=== PATIENT | male | born 1980 | race Caucasian/White ===

== ENCOUNTER 2016-11-21 | Emergency (ER) | payer OTHER ==
[~2016-11-21] VITALS: Ht 180.3 cm; Wt 72.0 kg
[2016-11-21 00:07] VITALS: TEMP 36.7; Ht 180.3 cm; Wt 72.0 kg
[2016-11-21] MEDS ORDERED: RISP0.5T10 PO (00:29)
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
[2016-11-21 00:52] LABS: HEMATOCRIT 44.2 % (42-52); MEAN CELL VOLUME 88.8 fL (80-100); MEAN CORPUSCULAR HEMOGLOBIN 31.7 pg (25-34); MEAN CORPUSCULAR HGB CONC 35.7 g/dl (32-36); MEAN PLATELET VOLUME 10.2 fL (7.4-10.4); PLATELET COUNT 322 K/uL (130-400); RED BLOOD COUNT 4.98 M/uL (4.7-6.1); WHITE BLOOD COUNT 11.23 K/uL (4.8-10.8)
[2016-11-21 01:00] LABS: ALT/SGPT 93 U/L (12-78); AST/SGOT 37 U/L (15-37); BLOOD UREA NITROGEN 14 mg/dl (7-18); BUN/CREATININE RATIO 12.6 (10-20); CALCIUM 8.6 mg/dl (8.5-10.1); CARBON DIOXIDE 27 mmol/L (21-32); CHLORIDE 102 mmol/L (98-107); GLUCOSE 107 mg/dl (70-99); POTASSIUM 3.5 mmol/L (3.5-5.1); SODIUM 141 mmol/L (136-145)
[2016-11-21 01:00] LABS: URINE APPEARANCE CLEAR (CLEAR); URINE BILIRUBIN NEG (NEG); URINE COLOR YELLOW; URINE NITRITE NEG (NEG); URINE PH 5.5 (4.5-7.5); URINE SPECIFIC GRAVITY 1.012 (1.000-1.030); UROBILINOGEN NEG (NEG)
[2016-11-21 01:01] LABS: MANUAL MICROSCOPIC REQUIRED? NO; REVIEW REQ? NO
[2016-11-21 01:11] LABS: ALKALINE PHOSPHATASE 125 U/L (45-117)
[2016-11-21 01:20] LABS: BENZODIAZEPINE, URINE NEG (NEG); COCAINE,URINE NEG (NEG); PHENCYCLIDINE, URINE NEG (NEG)
[2016-11-21 01:21] LABS: ACETAMINOPHEN < 2 ug/ml (10-30)
[2016-11-21] MEDS ORDERED: RISPERIDONE 0.5 MG TAB PO STA (10:30)
[2016-11-21] MEDS ORDERED: NICOTINE 14 MG/24 HR TDSY TD STA (13:03)
--- NOTE | 2016-11-21 13:36 | EMERGENCY ROOM VISIT NOTE ---
ED Visit Note First contact with patient: 07:34 This patient was signed out to me pending psychiatric placement. I did provide his morning medications. He was accepted by [facility] and will be transported securely at 5 PM.
[2016-11-21 19:10] VITALS: BP 126/65; PULSE 96; O2SAT 96
== END 2016-11-21 19:07 ==
LOC: EDBD → C.EDA 00:02
DX: F23 Brief psychotic disorder (principal); R44.0 Auditory hallucinations; J45.909 Unspecified asthma, uncomplicated; F17.210 Nicotine dependence, cigarettes, uncomplicated; Z79.899 Other long term (current) drug therapy

== ENCOUNTER 2017-09-03 23:44 | Emergency (ER) | payer OTHER ==
[~2017-09-03] VITALS: Ht 182.9 cm; Wt 79.8 kg
[~2017-09-03 23:44] MED LIST: RISP0.5T10 PO
[2017-09-03 23:52] VITALS: TEMP 37; Ht 182.9 cm; Wt 79.8 kg
[2017-09-03] MEDS ORDERED: MoRPHine SULFATE 4 MG/ML 1 ML CARP\\VIAL IV STA (23:53)
[2017-09-03] MEDS ORDERED: ONDANSETRON INJ 2 MG/ML 2 ML VIAL IV STA (23:53)
[2017-09-04] MEDS ORDERED: OPTIRAY 320 IV PRN (00:15)
[2017-09-04 00:25] LABS: HEMATOCRIT 42.2 % (42-52); MEAN CELL VOLUME 85.6 fL (80-100); MEAN CORPUSCULAR HEMOGLOBIN 29.4 pg (25-34); MEAN CORPUSCULAR HGB CONC 34.4 g/dl (32-36); MEAN PLATELET VOLUME 9.8 fL (7.4-10.4); PLATELET COUNT 247 K/uL (130-400); RED BLOOD COUNT 4.93 M/uL (4.7-6.1); WHITE BLOOD COUNT 7.27 K/uL (4.8-10.8)
[2017-09-04 00:34] LABS: BUN/CREATININE RATIO 16.6 (10-20); CREATININE 1.31 mg/dl (0.60-1.40); POTASSIUM 3.2 mmol/L (3.5-5.1)
[2017-09-04] MEDS ORDERED: CEFAZOLIN IV 1,000 MG in DEXTROSE 5% 50ML 50 ML IV STA (00:42)
[2017-09-04] MEDS ORDERED: CEFAZOLIN 1000MG IV PUSH 5 ML IV STA (00:46)
[2017-09-04] MEDS ORDERED: XYLOCAINE 1%/SOD BICARB 20 ML VIAL INFIL ONE (01:00)
[2017-09-04] MEDS ORDERED: LIDO/EPINEPHRINE/SOD BICARB 20 ML VIAL INFIL ONE (01:31)
--- NOTE | 2017-09-04 02:00 | EMERGENCY ROOM VISIT NOTE ---
ED Visit Note I was asked the laceration repairs of this patient. Location: left eyelid Total length: 1cm Complexity: simple Verbal consent was obtained after the risks and benefits were explained, including but not limited to bleeding, scarring, infection, pain, and bone/joint /nerve damage. At this time, the risks of the procedure are less than the risks of NOT performing the procedure. A time out was taken and the correct patient and site identified. The skin was prepped with betadine. The target area was anesthetized with 1 ml of 1% lidocaine without epinephrine. Copious irrigation was performed using NSS. The skin was re-prepped with betadine and a sterile field set. The wound was explored for foreign bodies and none found. Examination revealed no injury to deep structures such as tendons, bone, or significant blood vessels. Debridement was not performed. The wound edges were approximated using 3, 6-0 simple interrupted nylon sutures. Hemostasis and excellent approximation was achieved. Antibacterial ointment and a sterile dressing applied. Detailed wound care instructions and signs and symptoms of infection reviewed with the pt. No complications and the patient tolerated the procedure well. Location: left eyelid Total length: 1.5cm Complexity: simple Verbal consent was obtained after the risks and benefits were explained, including but not limited to bleeding, scarring, infection, pain, and bone/joint /nerve damage. At this time, the risks of the procedure are less than the risks of NOT performing the procedure. A time out was taken and the correct patient and site identified. The skin was prepped with betadine. The target area was anesthetized with 2 ml of 1% lidocaine without epinephrine. Copious irrigation was performed using NSS. The skin was re-prepped with betadine and a sterile field set. The wound was explored for foreign bodies and none found. Examination revealed no injury to deep structures such as tendons, bone, or significant blood vessels. Debridement was not performed. The wound edges were approximated using 3, 6-0 simple interrupted nylon sutures. Hemostasis and excellent approximation was achieved. Antibacterial ointment and a sterile dressing applied. Detailed wound care instructions and signs and symptoms of infection reviewed with the pt. No complications and the patient tolerated the procedure well. Location: nasal bridge to left eye Total length: 2cm Complexity: complex Verbal consent was obtained after the risks and benefits were explained, including but not limited to bleeding, scarring, infection, pain, and bone/joint /nerve damage. At this time, the risks of the procedure are less than the risks of NOT performing the procedure. A time out was taken and the correct patient and site identified. The skin was prepped with betadine. The target area was anesthetized with 2 ml of 1% lidocaine with epinephrine. Upon anesthetizing the area, the patient developed a epistaxis. Pressure was applied and the epistaxis did resolve. Copious irrigation was performed using NSS. The skin was re-prepped with betadine and a sterile field set. The wound was explored for foreign bodies and none found. Examination revealed visualization of the nasal septum. Debridement was not performed. The wound edges were approximated using 6, 6-0 simple interrupted nylon sutures. Hemostasis and excellent approximation was achieved. Antibacterial ointment and a sterile dressing applied. Detailed wound care instructions and signs and symptoms of infection reviewed with the pt. No complications and the patient tolerated the procedure well. Problem List Medical Problems: (1) Asthma Status: Chronic (2) CHI (closed head injury) Status: Resolved (3) Dehydration Status: Resolved (4) Finger infection Status: Resolved (5) Left shoulder pain Status: Resolved (6) Multiple abrasions Status: Resolved (7) Separation of left acromioclavicular joint, type 1 Status: Resolved Current/Historical Medications No Active Prescriptions or Reported Meds Allergies Coded Allergies: Aspirin (Verified Allergy, Unknown, unknown, 09/04/17) BEE STING (Unverified Allergy, Unknown, anaphylaxis, 09/04/17) Cat Dander (Verified Allergy, Unknown, ., 09/04/17) Vital Signs Date Time Temp Pulse Resp B/P (MAP) Pulse Ox O2 Delivery O2 Flow Rate FiO2 09/04/17 01:03 87 18 124/82 92 Room Air 09/04/17 00:20 93 09/03/17 23:52 37.0 98 18 138/99 95 Room Air Laboratory Results 09/03/17 23:55 09/03/17 23:55 Test 09/03/17 23:55 Red Blood Count 4.93 M/uL (4.7-6.1) Mean Corpuscular Volume 85.6 fL (80-100) Mean Corpuscular Hemoglobin 29.4 pg (25-34) Mean Corpuscular Hemoglobin Concent 34.4 g/dl (32-36) RDW Standard Deviation 39.7 fL (36.4-46.3) RDW Coefficient of Variation 12.7 % (11.5-14.5) Mean Platelet Volume 9.8 fL (7.4-10.4) Anion Gap 8.0 mmol/L (3-11) Est Creatinine Clear Calc Drug Dose 84.8 ml/min Estimated GFR () 80.0 Estimated GFR (Non- 69.1 BUN/Creatinine Ratio 16.6 (10-20) Calcium Level 9.0 mg/dl (8.5-10.1) Medications Administered Medications (Trade) Dose Ordered Sig/Raul Route Start Time Stop Time Status Last Admin Dose Admin Morphine Sulfate (MoRPHine SULFATE INJ) 4 mg NOW STAT IV 09/03/17 23:53 09/03/17 23:54 DC 09/04/17 00:00 4 MG Ondansetron HCl (Zofran Inj) 4 mg NOW STAT IV 09/03/17 23:53 09/03/17 23:54 DC 09/03/17 23:59 4 MG Cefazolin Sodium 5 ml @ 2.5 mls/min ONE STAT IV 09/04/17 00:46 09/04/17 00:47 DC 09/04/17 01:05 2.5 MLS/MIN Departure Information Prescriptions No Active Prescriptions or Reported Meds Referrals No Doctor, Assigned (PCP) Patient Instructions [facility]
[2017-09-04] MEDS ORDERED: MoRPHine SULFATE 4 MG/ML 1 ML CARP\\VIAL IV STA (02:14)
[2017-09-04 02:24] VITALS: BP 129/85; PULSE 85; O2SAT 94
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
== END 2017-09-04 03:00 | disposition short-term general hospital (02) ==
LOC: EDBD 23:44 → C.EDA 23:47
DX: S01.112A Laceration without foreign body of left eyelid and periocular area, initial encounter (principal); S01.21XA Laceration without foreign body of nose, initial encounter; S02.2XXA Fracture of nasal bones, initial encounter for closed fracture; X99.1XXA Assault by knife, initial encounter; Y92.009 Unspecified place in unspecified non-institutional (private) residence as the place of occurrence of the external cause; F17.200 Nicotine dependence, unspecified, uncomplicated; F12.90 Cannabis use, unspecified, uncomplicated

== ENCOUNTER → 2017-10-12 | Day surgery (SDC) | payer OTHER ==
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
[~2017-10-12] VITALS: Ht 182.9 cm; Wt 79.0 kg
[~2017-10-12] MED LIST changes: +ATROPINE SULFATE 0.1 MG/ML 5ML SYR IV PRN; +BACITRACIN OINT 15 GM TUBE ONE; +CEFAZOLIN 1000MG IV PUSH 5 ML IV SCH; +DEXAMETHASONE SOD INJ 4 MG/ML VIAL ONE; +EpINEphrine INJ 1MG/ML AMP 1 MG/ML AMP ONE; +FENTANYL CITRATE INJ 50 MCG/1 ML 2 ML VIAL IV PRN; +FENTANYL CITRATE INJ 50 MCG/1 ML 2 ML VIAL ONE; +GELATIN SPONGE 12-7MM ONE; +HYDR-5688 PO; +HYDROCODONE/ACETAMOPHEN 5/325MG TAB PO PRN; +LABETALOL HCL IV 5 MG/ML 20ML IV PRN; +LACTATED RINGER'S 1000ML 1,000 ML IV SCH; +LIDO 2%/EPINEPHRINE 1:100000 20 ML VIAL INFIL ONE; +LIDOCAINE 4% MPF SOAK 5 ML = 1 DOSE TOP ONE; +LIDOCAINE HCL 2% 2 ML VIAL (20MG/ML) ONE; +MIDAZOLAM HCL 1 MG/ML 2ML VIAL ONE; +ONDANSETRON INJ 2 MG/ML 2 ML VIAL IV PRN; +ONDANSETRON INJ 2 MG/ML 2 ML VIAL ONE; +PROPOFOL IV EMULSION 10 MG/ML 20 ML VIAL IV ONE; -RISP0.5T10 PO; +SODIUM CHLORIDE 0.9% 1000ML 1,000 ML IV SCH
[2017-10-12 11:46] VITALS: Ht 182.9 cm; Wt 79.0 kg
--- NOTE | 2017-10-12 11:55 | History & Physical Bridge Note ---
H&P Re-Evaluation Bridge Note: I have examined the patient, reviewed the History & Physical and in the interval since the performance of the History & Physical I have noted the following changes of clinical significance: No changes noted
--- NOTE | 2017-10-12 13:14 | Discharge Instructions-SurgCtr ---
Discharge Instructions Date of Service Oct 12, 2017. Visit Reason for Visit: Nasal & Septal Fractures Discharge Discharge Diagnosis / Problem: same Discharge Goals Goal(s): Improve function Activity Recommendations Activity Limitations: per Instructions/Follow-up section Anesthesia . Post Anesthesia Instructions: If you have had General Anesthesia or IV Sedation: * Do not drive today. * Resume driving when surgeon permits. * Do not make important decisions or sign legal documents today. * Call surgeon for: 1. Temperature elevations greater than 101 degrees F. 2. Uncontrollable pain. 3. Excessive bleeding. 4. Persistent nausea and vomiting. 5. Medication intolerance (nausea, vomiting or rash). * For nausea and vomiting use only clear liquids such as: tea, soda, bouillon until nausea subsides, then gradually increase diet as tolerated. * If you have any concerns or questions, call your surgeon's office. If physician is unavailable and it is an emergency, call 911 or go to the nearest emergency room. . Instructions / Follow-Up Instructions / Follow-Up ACTIVITY RECOMMENDATIONS: * Being up and around is good, but no strenuous activity, heavy lifting or physical exertion for one week. * Keep your head elevated 30 degrees when lying down or sleeping. * Do not blow your nose for 48 hours, sniff back instead. * Avoid hot showers. OVER THE COUNTER MEDICATIONS: * You may use Tylenol * Avoid aspirin or aspirin containing products, e.g. as they may increase bleeding. SPECIAL CARE INSTRUCTIONS: * Expect to have bloody drainage from your nose and/or down your throat for one to three days. Change drip pad as needed. * Begin irrigating your nose with saline solution today, at least six to ten times per day and sniff back to help remove old clots or crust. * You may experience nasal and facial congestion, pain and pressure, this is normal. * Please call with any significant and/or progressive pain, redness, swelling around the eyes, visual changes, fever of 101.5 degrees F, active bleeding or any problems or concerns. * If active bleeding occurs, spray the nose three times at one minute intervals with Afrin spray and call or cell phone: . If unable to reach the doctor, go to the nearest Emergency Department. Special Diet: * Avoid extremely hot fluids. FOLLOW UP VISIT: Follow-up Visit with Dr. Cassidy If not already scheduled, please call to schedule. Diet Recommendations Home Diet: no limitations Pending Studies Studies pending at discharge: no Medical Emergencies . Who to Call and When: Medical Emergencies: If at any time you feel your situation is an emergency, please call 911 immediately. . Non-Emergent Contact Non-Emergency issues call your: Primary Care Provider . . "Provider Documentation" section prepared by Lindsay Cassidy. . [place] Drug Monitoring Program Search Results: no issues identified
--- NOTE | 2017-10-12 15:19 | Anesthesia Progress Nt - [facility] ---
Anesthesia Post Op Note Date & Time Oct 12, 2017 at 15:19 Vital Signs Pain Intensity: 3 Vital Signs Past 12 Hours Date Time Temp Pulse Resp B/P (MAP) Pulse Ox O2 Delivery O2 Flow Rate FiO2 10/12/17 15:07 36.7 69 16 121/81 98 Room Air 10/12/17 15:02 74 13 99 10/12/17 15:02 73 13 10/12/17 15:00 126/92 10/12/17 14:57 70 12 10/12/17 14:57 70 12 93 10/12/17 14:55 141/106 10/12/17 14:52 75 17 94 10/12/17 14:52 75 17 10/12/17 14:51 120/84 10/12/17 14:47 74 10 10/12/17 14:47 74 10 93 10/12/17 14:45 139/98 10/12/17 14:42 82 13 10/12/17 14:42 84 13 140/87 92 10/12/17 14:41 83 12 10/12/17 14:41 80 12 93 10/12/17 14:36 80 16 141/103 100 10/12/17 14:36 85 16 10/12/17 14:31 83 16 154/90 100 10/12/17 14:31 84 16 10/12/17 14:26 88 10 10/12/17 14:26 90 10 98 10/12/17 14:25 37.0 88 12 118/92 98 Humidified Oxygen Mask 10/12/17 11:43 36.5 62 16 123/79 (94) 97 Room Air Notes Mental Status: alert / awake / arousable, participated in evaluation Pt Amnestic to Procedure: Yes Nausea / Vomiting: adequately controlled Pain: adequately controlled Airway Patency, RR, SpO2: stable & adequate BP & HR: stable & adequate Hydration State: stable & adequate Anesthetic Complications: no major complications apparent
[2017-10-12 15:29] VITALS: BP 132/87; PULSE 68; TEMP 37; O2SAT 98
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
== END | disposition home or self-care (01) ==
LOC: X.SURG 11:31
PROVIDERS: ATTEND Otolaryngology
DX: S02.2XXA Fracture of nasal bones, initial encounter for closed fracture (principal); X99.1XXA Assault by knife, initial encounter

== ENCOUNTER 2022-12-19 06:48 | Inpatient (IN) ==
[2022-12-19 07:37] LABS: Basophils # (auto) 0.06 K/uL (0-0.2); Basophils % (auto) 0.5 %; Eosinophils # (auto) 0.18 K/uL (0-0.50); Eosinophils % (auto) 1.6 %; Hematocrit (blood only) 43.9 % (42.0-52.0); Hemoglobin 15.4 g/dl (14.0-18.0); Immature Granulocytes # (auto) 0.07 K/uL (0.01-0.20); Immature Granulocytes % (auto) 0.6 %; Lymphocytes # (auto) 1.75 K/uL (1.2-3.4); Lymphocytes % (auto) 15.3 %; Mean Corpuscular Hgb Conc 35.1 g/dL (32.0-36.0); Mean Corpuscular Volume 85.4 fL (80.0-100.0); Mean Platelet Volume 10.3 fL (9.4-12.4); Monocytes # (auto) 0.64 K/uL (0.11-0.59); Monocytes % (auto) 5.6 %; Neutrophils # (auto) 8.74 K/uL (1.40-6.50); Neutrophils % (auto) 76.4 %; Platelet Count 333 K/uL (130-400); RDW Coefficient of Variation 11.9 % (11.5-14.5); RDW Standard Deviation 37.2 fL (36.4-46.3); Red Blood Count 5.14 M/uL (4.70-6.10); White Blood Count 11.44 K/ul (4.8-10.8)
--- NOTE | 2022-12-19 07:37 | XRay Report ---
XR chest 1V portable CLINICAL HISTORY: weakness TECHNIQUE: Single frontal radiograph of the chest was obtained. Comparison: Comparison is made to chest 12/19/2019 FINDINGS: No lines and tubes are seen. The cardiomediastinal silhouette is normal. Prominence and cephalization of the vasculature is seen. No evidence of pleural effusion or pneumothorax. IMPRESSION: Mild pulmonary edema. ACT 112: Negative or not required by law. Electronically signed by: Brody Mancia M.D. 12/19/2022 7:35 AM
[2022-12-19] MEDS ORDERED: SODIUM CHLORIDE 0.9% 1000ML 1,000 ML IV ONE (07:39)
[2022-12-19 07:40] LABS: Alanine Aminotransferase 42 U/L (7-52); Albumin Globulin Ratio 1.5 (0.9-2); Albumin Level 4.7 gm/dl (3.4-5.0); Alkaline Phosphatase 106 U/L (34-104); Anion Gap 11 (3-11); Aspartate Aminotransferase 56 U/L (13-39); BUN Creatinine Ratio 33.7 (10-20); Bilirubin,Total 2.8 mg/dl (0.2-1.0); Blood Urea Nitrogen 31 mg/dl (6-23); Calcium 9.4 mg/dl (8.5-10.1); Carbon Dioxide 24 mmol/L (21-32); Chloride 102 mmol/L (98-107); Creatine Kinase 1518 U/L (30-223); Est GFR (African American) 117.6 ml/min; Est GFR (Non-African American) 101.5 ml/min; Globulin 3.1 gm/dl (2.5-4.0); Glucose 114 mg/dl (70-99(Fasting)); Magnesium 2.3 mg/dl (1.7-2.4); Phosphorus 3.8 mg/dl (2.5-4.9); Potassium 3.8 mmol/L (3.5-5.1); Sodium 137 mmol/L (136-145); Total Protein 7.8 gm/dl (6.0-8.3)
--- NOTE | 2022-12-19 07:48 | Emergency Department Note ---
Impression & Plan Metabolic encephalopathy, Rhabdomyolysis, Hypothermia, Dehydration ED Provider Note NAME: KATHY GTZ AGE: 42 SEX: M ARRIVES VIA: Ambulance INFORMANT: Patient ED PROVIDER(S): Nam Bello MD CHIEF COMPLAINT: Hypothermia. PLAN: Disposition: Admit MEDICAL DECISION MAKING: The patient is a 42-year-old gentleman who presents to the emergency department via EMS after he had called 911 outside the [facility] in the setting of it being reported that he had been outside of [facility] all night and went in this morning to buy coffee and food. Patient is a poor historian and does not provide much history. He is alert and oriented to self. He moves all extremities equally without deficit. Oral temperature initially taken was likely erroneous as the patient had a coughing in his hand and upon rectal temperature was 35.7. Heart rate in the 100s and vital signs otherwise stable. He appears clinically dry. Head is atraumatic. He is moving all extremities equally without focal deficit. EKG without overt acute ischemia. CXR with question of pulmonary edema though similar to prior and patient denies respiratory symptoms. WBC 11.4K nonspecific. H/H and platelets within normal limits. Chemistry without metabolic acidosis. BUN is elevated at 31 with BUN/creatinine >30 this with the patient's clinically dry appearance with CPK of 1500. LFTs are similar to prior though slightly more elevated with total bilirubin 2.8 with direct bilirubin 0.4 and AST 56, nonspecific. High-sensitivity troponin 4.6, within normal limits. Lipase not elevated. TSH within normal limits. UA with 2+ ketones consistent with patient's clinically dry appearance. Otherwise no convincing evidence of infection. Drug screen positive for THC, methamphetamine and MDMA. Covid-19 RNA, NAAT negative. CT head negative for acute abnormality. Given the patient's metabolic encephalopathy with severe dehydration in the setting of rhabdomyolysis appropriate to proceed with admission for further management. Patient was in agreement with this. Treatment provided emergency department with warmed IV fluid hydration and warming blanket for hypothermia. Case was discussed with Tessie Miller, [facility], [facility] the [facility] for [facility]. Triage Nursing notes reviewed and agree them. Prior/outside medical records reviewed Vital Signs: reviewed Differential diagnosis: Infection, hypoglycemia, electrolyte abnormalities, overdose, toxicologic, cardiac sources, intracerebral event, neurologic, trauma, as well as other pathologies. ER treatment provided: See below. Diagnostics interpreted by me: ECG: Sinus tachycardia, 104 bpm, no ectopy, no overt ST elevation or depression, QTc 486, QRS 92 Cardiac Monitoring: An order for continuous cardiac monitoring was placed and demonstrated Sinus tachycardia, 104 bpm, no ectopy. Laboratory studies: See below Imaging studies: See below Consultation(s): Tessie Miller, [facility], with Andres [facility]oz[facility] hospitalist HPI: The patient is a 42-year-old gentleman who presents to the emergency department via EMS after he had called 911 outside the [facility] in the setting of it being reported that he had been outside of [facility] all night and went in this morning to buy coffee and food. Patient is a poor historian and does not provide much history. He is alert and oriented to self. He moves all extremities equally without deficit. ROS: See above HPI for pertinent positives & negatives. A total of 10 systems reviewed and were otherwise negative. VITALS:See Below PHYSICAL EXAMINATION: GENERAL: Awake, alert, fatigued-appearing, in no distress HENT: Normocephalic, atraumatic. Oropharynx with dry mucous membranes and otherwise unremarkable. EYES: Normal conjunctiva. Sclera non-icteric. NECK: Supple. No nuchal rigidity. FROM. No JVD. RESPIRATORY: Clear to auscultation. CARDIAC: Tachycardic rate, normal rhythm. Extremities warm and well perfused. Pulses equal. ABDOMEN: Soft, non-distended. No tenderness to palpation. No rebound or guarding. No masses. RECTAL: Deferred. MUSCULOSKELETAL: Chest examination reveals no tenderness. The back is symmetrical on inspection without obvious abnormality. There is no CVA tenderness to palpation. No joint edema. Compartments are soft. LOWER EXTREMITIES: Calves are equal size bilaterally and non-tender. No edema. No discoloration. NEURO: Alert to self and place. Confused to situation. Poor attention. No focal sensory or motor deficits noted. DTRs wnl. No clonus. SKIN: No rash or jaundice noted. ED COURSE: Critical Care: I have personally spent greater than 45 minutes of critical care time in the direct management of this patient. This includes bedside care, interpretation of diagnostic studies, and testing, discussion with consultants, patient, and family members, and other required patient management activities. This 45 minutes is in excess of all separately billable procedures. Nam Bello MD Past Med/Surg History Medical History Encephalopathy Schizophrenia Substance abuse Surgical History No pertinent past surgical history Family History Other Family history unknown Social History Smoking Status: Current some day smoker Tobacco Type: Cigarettes Hx Alcohol Use: Yes Hx Substance Use: Yes Non-Prescribed Medications: Crack / Cocaine and Methamphetamines Last Used Substance: Unknown Substance Use Type Other:: info obtained from H&P Preferred Language: Hong Konger Communication Ability: Unable Manager Social Services Required: No Beliefs That Will Affect Care: None Current Living Situation: Homeless Current Living Situation Comment: homeless Other Information That Helps Us Care for You: No Feels Safe at Home: Yes Assistive Devices: None Allergies Allergies Allergy/AdvReac Type Severity Reaction Status Date / Time bee venom protein (honey bee) Allergy Severe anaphylaxis Verified 04/25/22 10:52 aspirin Allergy Intermediate HIVES Verified 04/25/22 10:52 cat dander Allergy Intermediate CONGESTION, Verified 04/25/22 10:52 SNEEZING, ITCHY EYES grass pollen Allergy Intermediate Congested Verified 04/25/22 10:52 Home Meds Home Medications Medication Instructions Recorded Confirmed No Known Home Medications 04/17/21 12/19/22 Results & Data (ED) Vital Signs Vital Signs - 24 hr 12/19/22 06:52 12/19/22 07:24 12/19/22 07:24 Temperature 36.6 C 35.7 C L Temperature Source Oral Rectal Pulse Rate 103 H Pulse Rate [Right Finger] Pulse Rhythm Regular Pulse Rhythm [Right Finger] Pulse Strength [Right Finger] Respiratory Rate 22 Respiratory Effort / Characteristics Respiratory Depth Respiratory Pattern Blood Pressure 140/89 Blood Pressure [Right Arm] Blood Pressure Mean 106 Blood Pressure Mean [Right Arm] Blood Pressure Position [Right Arm] Pulse Oximetry 97 Oxygen Delivery Method Room Air Room Air Sepsis Recent Fever Within 48 Hours No Sepsis New/Unexplained Change in Mental Status Yes Sepsis Action Taken by Nursing Physician Notified 12/19/22 08:00 12/19/22 09:00 Temperature 37.2 C Temperature Source Oral Pulse Rate Pulse Rate [Right Finger] 104 H 114 H Pulse Rhythm Pulse Rhythm [Right Finger] Regular Regular Pulse Strength [Right Finger] Normal Normal Respiratory Rate 18 20 Respiratory Effort / Characteristics Non-Labored Non-Labored Respiratory Depth Normal Normal Respiratory Pattern Regular Regular Blood Pressure Blood Pressure [Right Arm] 136/81 113/70 Blood Pressure Mean Blood Pressure Mean [Right Arm] 99 84 Blood Pressure Position [Right Arm] Lying Lying Pulse Oximetry 96 95 Oxygen Delivery Method Room Air Room Air Sepsis Recent Fever Within 48 Hours Sepsis New/Unexplained Change in Mental Status Sepsis Action Taken by Nursing Laboratory Data Attestation: I reviewed the patient's lab results. 12/19/22 07:00 12/19/22 07:00 Lab Results 12/19/22 12/19/22 12/19/22 Range/Units 07:00 07:00 07:00 WBC 11.44 H (4.8-10.8) K/ul RBC 5.14 (4.70-6.10) M/uL Hgb 15.4 (14.0-18.0) g/dl Hct 43.9 (42.0-52.0) % MCV 85.4 (80.0-100.0) fL MCH 30.0 (25.0-34.0) pg MCHC 35.1 (32.0-36.0) g/dL RDW Std Deviation 37.2 (36.4-46.3) fL RDW Coeff of Rafal 11.9 (11.5-14.5) % Plt Count 333 (130-400) K/uL MPV 10.3 (9.4-12.4) fL Immature Gran % (Auto) 0.6 % Neut % (Auto) 76.4 % Lymph % (Auto) 15.3 % [place] % (Auto) 5.6 % Eos % (Auto) 1.6 % Baso % (Auto) 0.5 % Neut # (Auto) 8.74 H (1.40-6.50) K/uL Lymph # (Auto) 1.75 (1.2-3.4) K/uL [place] # (Auto) 0.64 H (0.11-0.59) K/uL Eos # (Auto) 0.18 (0-0.50) K/uL Baso # (Auto) 0.06 (0-0.2) K/uL Immature Gran # (Auto) 0.07 (0.01-0.20) K/uL Sodium 137 (136-145) mmol/L Potassium 3.8 (3.5-5.1) mmol/L Chloride 102 (98-107) mmol/L Carbon Dioxide 24 (21-32) mmol/L Anion Gap 11 (3-11) BUN 31 H (6-23) mg/dl Creatinine 0.92 (0.6-1.4) mg/dl Est Cr Clr Drug Dosing Not Reportable Est GFR ( Amer) 117.6 ml/min Est GFR (Non-Af Amer) 101.5 ml/min BUN/Creatinine Ratio 33.7 H (10-20) Glucose 114 H (70-99(Fasting)) mg/dl Calcium 9.4 (8.5-10.1) mg/dl Phosphorus 3.8 (2.5-4.9) mg/dl Magnesium 2.3 (1.7-2.4) mg/dl Total Bilirubin 2.8 H (0.2-1.0) mg/dl Direct Bilirubin 0.4 H (0-0.2) mg/dl AST 56 H (13-39) U/L ALT 42 (7-52) U/L Alkaline Phosphatase 106 H (34-104) U/L Total Creatine Kinase 1518 H (30-223) U/L Total Protein 7.8 (6.0-8.3) gm/dl Albumin 4.7 (3.4-5.0) gm/dl Globulin 3.1 (2.5-4.0) gm/dl Albumin/Globulin Ratio 1.5 (0.9-2) Lipase 10 L (11-82) U/L TSH 1.332 (0.300-4.500) uIu/ml Ethyl Alcohol mg/dL (<10.0) mg/dl SARS-CoV-2, RNA, NAAT (NEGATIVE) 12/19/22 12/19/22 Range/Units 07:00 08:25 WBC (4.8-10.8) K/ul RBC (4.70-6.10) M/uL Hgb (14.0-18.0) g/dl Hct (42.0-52.0) % MCV (80.0-100.0) fL MCH (25.0-34.0) pg MCHC (32.0-36.0) g/dL RDW Std Deviation (36.4-46.3) fL RDW Coeff of Rafal (11.5-14.5) % Plt Count (130-400) K/uL MPV (9.4-12.4) fL Immature Gran % (Auto) % Neut % (Auto) % Lymph % (Auto) % [place] % (Auto) % Eos % (Auto) % Baso % (Auto) % Neut # (Auto) (1.40-6.50) K/uL Lymph # (Auto) (1.2-3.4) K/uL [place] # (Auto) (0.11-0.59) K/uL Eos # (Auto) (0-0.50) K/uL Baso # (Auto) (0-0.2) K/uL Immature Gran # (Auto) (0.01-0.20) K/uL Sodium (136-145) mmol/L Potassium (3.5-5.1) mmol/L Chloride (98-107) mmol/L Carbon Dioxide (21-32) mmol/L Anion Gap (3-11) BUN (6-23) mg/dl Creatinine (0.6-1.4) mg/dl Est Cr Clr Drug Dosing Est GFR ( Amer) ml/min Est GFR (Non-Af Amer) ml/min BUN/Creatinine Ratio (10-20) Glucose (70-99(Fasting)) mg/dl Calcium (8.5-10.1) mg/dl Phosphorus (2.5-4.9) mg/dl Magnesium (1.7-2.4) mg/dl Total Bilirubin (0.2-1.0) mg/dl Direct Bilirubin (0-0.2) mg/dl AST (13-39) U/L ALT (7-52) U/L Alkaline Phosphatase (34-104) U/L Total Creatine Kinase (30-223) U/L Total Protein (6.0-8.3) gm/dl Albumin (3.4-5.0) gm/dl Globulin (2.5-4.0) gm/dl Albumin/Globulin Ratio (0.9-2) Lipase (11-82) U/L TSH (0.300-4.500) uIu/ml Ethyl Alcohol mg/dL < 10.0 (<10.0) mg/dl SARS-CoV-2, RNA, NAAT NEGATIVE (NEGATIVE) Administered Medications Sodium Chloride (Nss 1000ml) 1,000 mls @ 150 mls/hr IV .Q6H40M KAITLYNN Stop: 01/18/23 09:29 Last Admin: 12/19/22 17:47 Dose: 150 mls/hr Documented By: Infusion: 12/19/22 17:46 Dose: 150 mls/hr Documented By: Admin: 12/19/22 11:05 Dose: 150 mls/hr Documented By: VIVEK Discontinued Medications Sodium Chloride (Nss 1000ml) 1,000 mls @ 999 mls/hr IV .Q1H1M ONE Stop: 12/19/22 08:39 Last Infusion: 12/19/22 09:37 Dose: 0 mls/hr Documented By: Admin: 12/19/22 08:30 Dose: 999 mls/hr Documented By: SAHRA Influenza Virus Vaccine Quadrival (Fluarix Quadrivalent 0.5 Ml Syr) 0.5 ml IM .ONCE ONE Stop: 12/19/22 11:17 Last Admin: 12/19/22 19:59 Dose: Not Given Documented By: CP Miscellaneous (Patient's Height Needed) 1 each N/A NOW STA Stop: 12/19/22 10:39 Last Admin: 12/19/22 11:19 Dose: 1 each Documented By: VIVEK Imaging Data Radiologist's Impression: Chest X-Ray 12/19/22 07:13 XR chest 1V portable CLINICAL HISTORY: weakness TECHNIQUE: Single frontal radiograph of the chest was obtained. Comparison: Comparison is made to chest 12/19/2019 FINDINGS: No lines and tubes are seen. The cardiomediastinal silhouette is normal. Prominence and cephalization of the vasculature is seen. No evidence of pleural effusion or pneumothorax. IMPRESSION: Mild pulmonary edema. ACT 112: Negative or not required by law. Electronically signed by: Brody Mancia M.D. 12/19/2022 7:35 AM Chest X-Ray 12/19/22 07:13 XR chest 1V portable CLINICAL HISTORY: weakness TECHNIQUE: Single frontal radiograph of the chest was obtained. Comparison: Comparison is made to chest 12/19/2019 FINDINGS: No lines and tubes are seen. The cardiomediastinal silhouette is normal. Prominence and cephalization of the vasculature is seen. No evidence of pleural effusion or pneumothorax. IMPRESSION: Mild pulmonary edema. ACT 112: Negative or not required by law. Electronically signed by: Brody Mancia M.D. 12/19/2022 7:[address] 12/19/22 07:13 CT head/brain wo con CLINICAL HISTORY: 42 years-old Male with ams. Acutely altered mental status TECHNIQUE: Multiple axial CT images of the head were obtained without contrast. A dose lowering technique was utilized adhering to the principles of ALARA. CT DOSE: 614.27 mGy.cm COMPARISON: Head CT 10/09/2021 FINDINGS: No acute intracranial hemorrhage, midline shift, intracranial mass, hydrocephalus, territorial ischemia or abnormal extra-axial collection. The calvarium is intact. The paranasal sinuses, mastoid air cells, and middle ear cavities are clear. IMPRESSION: No acute intracranial abnormality. ACT 112: Negative or not required by law. The above report was generated using voice recognition software. It may contain grammatical, syntax or spelling errors. Electronically signed by: Tobias Sams M.D. 12/19/2022 7:47 AM Discharge Plan Visit Data Chief Complaint: Hypothermia Stated Complaint: Hypothermia, Leg Pain ED Provider: Nam Bello Discharge Problem: Metabolic encephalopathy, Rhabdomyolysis, Hypothermia, Dehydration Patient Disposition: Admitted As Inpatient Discharge Instructions Interventions: ED Discharge Assessment Last Done: 12/19/22 10:09
--- NOTE | 2022-12-19 07:48 | CT Scan Report ---
CT head/brain wo con CLINICAL HISTORY: 42 years-old Male with ams. Acutely altered mental status TECHNIQUE: Multiple axial CT images of the head were obtained without contrast. A dose lowering tech nique was utilized adhering to the principles of ALARA. CT DOSE: 614.27 mGy.cm COMPARISON: Head CT 10/09/2021 FINDINGS: No acute intracranial hemorrhage, midline shift, intracranial mass, hydrocephalus, territorial ischem ia or abnormal extra-axial collection. The calvarium is intact. The paranasal sinuses, mastoid air cells, and middle ear cavities are clear . IMPRESSION: No acute intracranial abnormality. ACT 112: Negative or not required by law. The above report was generated using voice recognition software. It may contain grammatical, syntax o r spelling errors. Electronically signed by: Tobias Sams M.D. 12/19/2022 7:47 AM
[2022-12-19 08:13] LABS: Bilirubin Direct 0.4 mg/dl (0-0.2); Lipase 10 U/L (11-82)
--- NOTE | 2022-12-19 08:57 | History & Physical Report ---
Date of Service December 19, 2022 Assessment & Plan (1) Metabolic encephalopathy: Plan: 42 y/o male with a PMH of substance abuse, drug-induced psychosis, and possible diagnosis of schizophrenia who was found outside [facility] this morning after spending the night outside and was noted to be confused. Currently, homeless. Suspect confusion is multifactorial related to hypothermia from exposure, substance use, and mild rhabdomyolysis. Will admit for further work-up and management. - Admit to PCU - Continue IVF hydration as started in the ED - Continue warming protocol until hypothermia resolved - Follow labs - LFTs mildly elevated, likely due to rhabdomyolysis but will continue to monitor - Urine drug screen, UA - ordered but not yet collected - Clear liquid diet - will advance once mental status clears - Consult psychiatry for assistance with management of underlying mental health conditions - Consult case management due to complex discharge needs (pt homeless, not currently established with outpatient care) - Does not drink alcohol regularly per pt but will monitor closely for s/s of withdrawal and address if needed (2) Rhabdomyolysis: (3) Hypothermia: (4) Dehydration: (5) Substance abuse: Plan Pt seen and evaluated with collaborating physician, Dr. Campos. Plan of care discussed and as outlined above. Code Status: Full code DVT Prophylaxis: Altagracia Miller PA-C History of Present Illness Chief Complaint: Confusion Primary Care Provider: NO PCP This is a 42 y/o male with a PMH of substance abuse, drug-induced psychosis and question of schizophrenia who presented to the ED via EMS this morning with confusion. Pt is a poor historian - slow to answer questions, difficulty with memory - so history is somewhat limited and the chart was extensively reviewed for additional information. Pt is homeless per his report - apparently spent the night outside [facility] last night and was found outside this morning so EMS was called. The exact sequence of events is somewhat unclear and pt cannot recall what happened. He denies pain at present but reports that he has been having dental pain and stomach pain over the last few days. Denies vomiting but did have diarrhea yesterday, none today. He is unclear as to when he last ate but reports he has not been eating much over the last several days. He does smoke cigarettes, with amount depending on finances. He reports occasional alcohol. Admits to use of meth and cocaine but unclear when his last use was. He denies taking medications regularly. Allergies Allergy/AdvReac Type Severity Reaction Status Date / Time bee venom protein (honey bee) Allergy Severe anaphylaxis Verified 04/25/22 10:52 aspirin Allergy Intermediate HIVES Verified 04/25/22 10:52 cat dander Allergy Intermediate CONGESTION, Verified 04/25/22 10:52 SNEEZING, ITCHY EYES grass pollen Allergy Intermediate Congested Verified 04/25/22 10:52 Home Medications Medication Instructions Recorded Confirmed Type No Known Home Medications 04/17/21 12/19/22 History Past Med/Surg History Medical History (Updated 12/19/22 @ 10:34 by Tessie Miller PA-C) Encephalopathy Schizophrenia Substance abuse Surgical History No pertinent past surgical history Family History Other Family history unknown Social History (Updated 12/19/22 @ 10:26 by Tessie Miller PA-C) Smoking Status: Current some day smoker Tobacco Type: Cigarettes Hx Alcohol Use: Yes Hx Substance Use: Yes Non-Prescribed Medications: Crack / Cocaine and Methamphetamines Last Used Substance: Unknown Substance Use Type Other:: info obtained from H&P Preferred Language: Tanzanian Communication Ability: non-verbal C Iron Worker Required: No Beliefs That Will Affect Care: None Current Living Situation: Homeless Current Living Situation Comment: homeless Other Information That Helps Us Care for You: No Feels Safe at Home: Yes Assistive Devices: None Review of Systems Review of Systems: Limited due to encephalopathy - see HPI Physical Exam Constitutional: no acute distress flushed, speech is slow, difficulty answering questions Eyes: PERRL, conjunctivae normal, anicteric sclerae ENMT: Mouth: + poor dentition Neck: trachea midline Respiratory: no respiratory distress and no labored breathing Auscultation: lungs clear to auscultation bilaterally Cardiovascular: Rate/Rhythm: regular rhythm and + tachycardic Heart Sounds: no murmur Vessels: radial pulses present Extremities: no pedal edema Gastrointestinal (Abdomen): Inspection/Auscultation: normal bowel sounds; abdomen not distended Percussion/Palpation: + abdomen tender (mild lower quadrant but no guarding or rebound) and abdomen soft Musculoskeletal: Head/Neck/Chest: normocephalic, head atraumatic and neck supple Skin: no jaundice, no track dennis noted, no wounds noted on UE or LE +tiny pustule on right abdomen but non-tender, no surrounding erythema, no drainage Neurologic: moves all extremities and + confused (oriented x 2 (person, place)) Psychiatric: Orientation: oriented to person and oriented to place; + not oriented to time Eye Contact: + fair eye contact Insight: + poor insight Results & Data Results & Data ([facility]) Vital Signs (Past 12 Hours) Vital Signs Temp Pulse Pulse Resp BP BP Pulse Ox 12/19/22 08:00 104 H 18 136/81 96 12/19/22 07:24 35.7 C L 12/19/22 07:24 12/19/22 06:52 36.6 C 103 H 22 140/89 97 O2 Del Method 12/19/22 08:00 Room Air 12/19/22 07:24 12/19/22 07:24 Room Air 12/19/22 06:52 Room Air Laboratory Results Laboratory Results - last 24 hr 12/19/22 12/19/22 12/19/22 07:00 07:00 07:00 WBC 11.44 H RBC 5.14 Hgb 15.4 Hct 43.9 MCV 85.4 MCH 30.0 MCHC 35.1 RDW Std Deviation 37.2 RDW Coeff of Rafal 11.9 Plt Count 333 MPV 10.3 Immature Gran % (Auto) 0.6 Neut % (Auto) 76.4 Lymph % (Auto) 15.3 [place] % (Auto) 5.6 Eos % (Auto) 1.6 Baso % (Auto) 0.5 Neut # (Auto) 8.74 H Lymph # (Auto) 1.75 [place] # (Auto) 0.64 H Eos # (Auto) 0.18 Baso # (Auto) 0.06 Immature Gran # (Auto) 0.07 Sodium 137 Potassium 3.8 Chloride 102 Carbon Dioxide 24 Anion Gap 11 BUN 31 H Creatinine 0.92 Est Cr Clr Drug Dosing Not Reportable Est GFR ( Amer) 117.6 Est GFR (Non-Af Amer) 101.5 BUN/Creatinine Ratio 33.7 H Glucose 114 H Calcium 9.4 Phosphorus 3.8 Magnesium 2.3 Total Bilirubin 2.8 H Direct Bilirubin 0.4 H AST 56 H ALT 42 Alkaline Phosphatase 106 H Total Creatine Kinase 1518 H Total Protein 7.8 Albumin 4.7 Globulin 3.1 Albumin/Globulin Ratio 1.5 Lipase 10 L TSH 1.332 Ethyl Alcohol mg/dL SARS-CoV-2, RNA, NAAT 12/19/22 12/19/22 07:00 08:25 WBC RBC Hgb Hct MCV MCH MCHC RDW Std Deviation RDW Coeff of Rafal Plt Count MPV Immature Gran % (Auto) Neut % (Auto) Lymph % (Auto) [place] % (Auto) Eos % (Auto) Baso % (Auto) Neut # (Auto) Lymph # (Auto) [place] # (Auto) Eos # (Auto) Baso # (Auto) Immature Gran # (Auto) Sodium Potassium Chloride Carbon Dioxide Anion Gap BUN Creatinine Est Cr Clr Drug Dosing Est GFR ( Amer) Est GFR (Non-Af Amer) BUN/Creatinine Ratio Glucose Calcium Phosphorus Magnesium Total Bilirubin Direct Bilirubin AST ALT Alkaline Phosphatase Total Creatine Kinase Total Protein Albumin Globulin Albumin/Globulin Ratio Lipase TSH Ethyl Alcohol mg/dL < 10.0 SARS-CoV-2, RNA, NAAT NEGATIVE Diagnostic Findings Chest X-ray 12/19/22 - IMPRESSION: Mild pulmonary edema. CT Head 12/19/2022 - IMPRESSION: No acute intracranial abnormality. Medications Administered Discontinued Medications Sodium Chloride (Nss 1000ml) 1,000 mls @ 999 mls/hr IV .Q1H1M ONE Stop: 12/19/22 08:39 Last Infusion: 12/19/22 09:37 Dose: 0 mls/hr Documented By: Admin: 12/19/22 08:30 Dose: 999 mls/hr Documented By: SAHRA Supervising Physician Co-Signing Physician Notes Date of Service: December 19, 2022 42-year-old man with history of drug abuse, schizophrenia who was brought in for hypothermia. Was reported to be outside [facility] overnight. Patient is a very poor historian. Reports being homeless . Reports some abdominal discomfort over the past few days and does not recall last meal Answers questions slowly. Exam notable for a young man currently alert and oriented to person and place only, slow responses, no needle dennis visualized, moves all extremities, on [facility] notable for CPK of 1518, mildly elevated AST 56/alkaline phosphatase 106, total bilirubin of 2.8. Hypothermia likely due to exposure Encephalopathy likely metabolic Rhabdomyolysis Continue IV fluids Case management consult Psych consult Will need counseling regarding drug use when more alert. Get UDS Trend LFT Tele monitor Other plans as detailed by Kenya Miller PA-C
--- NOTE | 2022-12-19 09:25 | Communication Note ---
Date of Service: December 19, 2022 42-year-old man with history of drug abuse, schizophrenia who was brought in for hypothermia. Was reported to be outside [facility] overnight. Patient is a very poor historian. Reports being homeless . Reports some abdominal discomfort over the past few days and does not recall last meal Answers questions slowly. Exam notable for a young man currently alert and oriented to person and place only, slow responses, no needle dennis visualized, moves all extremities, on kaitlyn hugger Labs notable for CPK of 1518, mildly elevated AST 56/alkaline phosphatase 106, total bilirubin of 2.8. Hypothermia likely due to exposure Encephalopathy likely metabolic Rhabdomyolysis Continue IV fluids Case management consult Psych consult Will need counseling regarding drug use when more alert. Get UDS Trend LFT Tele monitor Other plans as detailed by Kenya Miller PA-C
[2022-12-19] MEDS ORDERED: Patient's HEIGHT Needed STA (10:38)
[2022-12-19] MEDS: SODIUM CHLORIDE 0.9% 1000ML 1,000 ML IV SCH ×2 (11:05→17:47)
[2022-12-19] MEDS ORDERED: FLUARIX QUADRIVALENT 0.5 ML SYR IM ONE (11:16)
[2022-12-19 16:43] LABS: Appearance Urine Clear (Clear); Bacteria Urine Automated Negative (Negative); Bilirubin Urine Negative (Negative); Blood Urine Negative (Negative); Color Urine Dark Yellow; Glucose Urine UA Negative (Negative); Ketones Urine 2+ (Negative); Leukocyte Esterase Urine Negative (Negative); Nitrite Urine Negative (Negative); Protein Urine Trace (Negative); RBC Urine Automated 0-4 /hpf (0-4); Specific Gravity Urine 1.035 (1.000-1.030); Urobilinogen Urine Negative (Negative); WBC Urine Automated 0 /hpf (0-5); pH Urine 5.5 (4.5-7.5)
[2022-12-19 17:34] LABS: Amphetamines+Metham, Urine Pos (Neg); Barbiturates, Urine Neg (Neg); Benzodiazepine, Urine Neg (Neg); Cocaine, Urine Neg (Neg); MDMA (Ecstacy), Urine Pos (Neg); Methadone, Urine Neg (Neg); Opiate, Urine Neg (Neg); Phencyclidine, Urine Neg (Neg)
[2022-12-20] MEDS: SODIUM CHLORIDE 0.9% 1000ML 1,000 ML IV SCH ×4 (00:34→20:11)
--- NOTE | 2022-12-20 06:06 | Electrocardiogram Report ---
Test Reason : Blood Pressure : / mmHG Vent. Rate : 104 BPM Atrial Rate : 104 BPM P-R Int : 144 ms QRS Dur : 092 ms QT Int : 370 ms P-R-T Axes : 049 073 053 degrees QTc Int : 486 ms Sinus tachycardia Cannot rule out Inferior infarct , age undetermined Abnormal ECG When compared with ECG of 29-JUL-2022 09:25, Vent. rate has increased BY 35 BPM Confirmed by Omero Dorado ([id number]) on 12/20/2022 6:05:59 AM Referred By: Confirmed By:Omero Dorado
[2022-12-20] MEDS: ENOXAPARIN INJ 40 MG/0.4 ML SYR SQ SCH (10:09)
[2022-12-20 12:21] LABS: Basophils # (auto) 0.04 K/uL (0-0.2); Basophils % (auto) 0.5 %; Eosinophils # (auto) 0.24 K/uL (0-0.50); Eosinophils % (auto) 2.7 %; Hematocrit (blood only) 39.6 % (42.0-52.0); Hemoglobin 13.5 g/dl (14.0-18.0); Immature Granulocytes # (auto) 0.03 K/uL (0.01-0.20); Immature Granulocytes % (auto) 0.3 %; Lymphocytes % (auto) 18.2 %; Mean Corpuscular Hemoglobin 29.4 pg (25.0-34.0); Mean Corpuscular Hgb Conc 34.1 g/dL (32.0-36.0); Mean Corpuscular Volume 86.3 fL (80.0-100.0); Mean Platelet Volume 10.1 fL (9.4-12.4); Monocytes # (auto) 0.63 K/uL (0.11-0.59); Monocytes % (auto) 7.2 %; Neutrophils # (auto) 6.23 K/uL (1.40-6.50); Neutrophils % (auto) 71.1 %; Platelet Count 272 K/uL (130-400); RDW Coefficient of Variation 11.9 % (11.5-14.5); RDW Standard Deviation 37.8 fL (36.4-46.3); Red Blood Count 4.59 M/uL (4.70-6.10); White Blood Count 8.77 K/ul (4.8-10.8)
[2022-12-20 13:01] LABS: Albumin Level 3.7 gm/dl (3.4-5.0); BUN Creatinine Ratio 17.3 (10-20); Bilirubin Direct 0.5 mg/dl (0-0.2); Bilirubin,Total 2.3 mg/dl (0.2-1.0); Calcium 8.4 mg/dl (8.5-10.1); Creatinine Clr Calc Pharmacy 131.1 ml/min; Est GFR (African American) 130.2 ml/min; Est GFR (Non-African American) 112.4 ml/min; Total Protein 6.3 gm/dl (6.0-8.3)
--- NOTE | 2022-12-20 14:02 | Hospitalist Progress Note ---
Date of Service December 20, 2022 Assessment & Plan (1) Metabolic encephalopathy: Plan: Patient is a 42 yr male with H/O substance abuse, drug-induced psychosis, and possible diagnosis of schizophrenia who was found outside [employer] this morning after spending the night outside and was noted to be confused. Currently, homeless. Suspect confusion is multifactorial related to hypothermia from exposure, substance use, and mild rhabdomyolysis. Acute metabolic encephalopathy Acute rhabdomyolysis Hypothermia Substance abuse --CT Head:No acute intracranial abnormality. --CXR:Mild pulmonary edema. --UA not suggestive of UTI -- Toxicology screen positive for methamphetamine, THC -- Hold any sedating medications Psychiatry consulted Reorient frequently Continue IV fluids Recheck blood work if patient allows Mild LFT elevation likely secondary to rhabdo Renal function at baseline DVT Px: Lovenox SQ Code Status Full Code (2) Rhabdomyolysis: (3) Hypothermia: (4) Dehydration: (5) Substance abuse: Plan Pt seen and evaluated with collaborating physician, Dr. Campos. Plan of care discussed and as outlined above. Code Status: Full code DVT Prophylaxis: Altagracia Miller PA-C Admission and Anticipated Discharge Date Admission Date: December 19, 2022 Subjective Patient is seen and examined at bedside Drowsy during my encounter Oriented to person and place Poor historian Denies any chest pain, shortness of breath, nausea, abdominal pain Refuses Blood Work Review of Systems Review of Systems: All systems reviewed & are unremarkable except as noted in Subjective Physical Exam Physical Exam: Physical Exam: Vitals signs as noted above General Appearance:Moderately built and nourished, no apparent distress Head: normocephalic, Atraumatic Eyes: normal inspection, EOMI Neck: supple, Trachea midline Respiratory/Chest: Normal breath sounds, CTA, No accessory muscle use Cardiovascular: S1, S2, No murmur Abdomen/GI:Soft, Non tender, Bowel sounds present Extremities/Musculoskeletal:normal inspection, no edema Neurologic/Psych:AAOX2, grossly no focal neurological deficits, +Drowsy Skin: normal color, warm Results & Data Results & Data ([facility]) Vital Signs (Past 12 Hours) Vital Signs Temp Pulse Pulse Resp BP Pulse Ox O2 Del Method 12/20/22 08:36 84 12/20/22 11:48 36.5 C 74 19 118/79 95 Room Air 12/20/22 07:19 36.7 C 85 14 119/81 93 Room Air 12/20/22 03:49 36.8 C 88 20 115/79 94 Room Air Laboratory Results Short CBC 12/20/22 Range/Units 11:58 WBC 8.77 (4.8-10.8) K/ul Hgb 13.5 L (14.0-18.0) g/dl Hct 39.6 L (42.0-52.0) % Plt Count 272 (130-400) K/uL BMP 12/20/22 11:58 Sodium 139 Potassium 4.0 Chloride 109 H Carbon Dioxide 25 BUN 13 Creatinine 0.75 Glucose 91 Calcium 8.4 L Cardiac Enzymes 12/20/22 Range/Units 11:58 Total Creatine Kinase 1048 H (30-223) U/L Liver Function 12/20/22 Range/Units 11:58 Total Bilirubin 2.3 H (0.2-1.0) mg/dl Direct Bilirubin 0.5 H (0-0.2) mg/dl AST 46 H (13-39) U/L ALT 33 (7-52) U/L Alkaline Phosphatase 84 (34-104) U/L Albumin 3.7 (3.4-5.0) gm/dl Urine 12/19/22 Range/Units Unknown Urine Color Dark Yellow Urine Appearance Clear (Clear) Urine pH 5.5 (4.5-7.5) Ur Specific Hershey 1.035 H (1.000-1.030) Urine Protein Trace H (Negative) Urine Glucose (UA) Negative (Negative)
[2022-12-21] MEDS: SODIUM CHLORIDE 0.9% 1000ML 1,000 ML IV SCH ×3 (02:47→17:43)
[2022-12-21 10:03] LABS: Albumin Level 3.6 gm/dl (3.4-5.0); Bilirubin Direct 0.3 mg/dl (0-0.2); Bilirubin,Total 1.3 mg/dl (0.2-1.0); Calcium 8.5 mg/dl (8.5-10.1); Potassium 3.8 mmol/L (3.5-5.1)
[2022-12-21 10:09] LABS: BUN Creatinine Ratio 16.5 (10-20); Creatinine Clr Calc Pharmacy 115.7 ml/min; Est GFR (African American) 123.7 ml/min; Est GFR (Non-African American) 106.7 ml/min; Total Protein 6.2 gm/dl (6.0-8.3)
[2022-12-21] MEDS: ENOXAPARIN INJ 40 MG/0.4 ML SYR SQ SCH (10:20)
[2022-12-21] MEDS: NICOTINE 21 MG/24 HR TDSY TD SCH (13:34)
--- NOTE | 2022-12-21 14:51 | Psychiatric Consultation ---
Date of Consultation December 21, 2022 Impression / Recommendations Impression I regret to say that it's not entirely clear what pt's underlying psychiatric problems may be with much certainty other than to note that severe substance use is clearly a major factor if not the primary problem. We don't know what the most recent medication he was supposed to take was, though I presume he's likely taken many of the commonly-used antipsychotics. Delirium - probably multifactorial History of schizophrenia - unclear what medication he might be supposed to be taking for this Polysubstance dependence - in my view likely pt's primary problem (1) Metabolic encephalopathy: (2) Polysubstance dependence: (3) Schizophrenia: Schizophrenia type: unspecified Qualified Code(s): F20.9 - Schi zophrenia, unspecified Plan I recommend focusing on symptoms noted here and now, such as any behavioral disturbances that may occur, and not being too worried about treatment for whatever long-term psychiatric problems he may have. For one thing, it seems that he likely hasn't used any treatment very consistently ever and not used any recently - he's not at risk of relapse due to not getting medication during this stay. We can work on possibly getting him set up for outpatient psychiatric services following discharge. If he begins to exhibit psychosis or behavior suggestive of psychosis, I recommend haloperidol 5 mg PO or 10 mg IM Q6 Hr PRN psychosis or alannah. While there is no medication that treats delirium, this can treat the psychosis that is frequently an aspect of delirium and has little propensity to be deliriogenic. Due to their tendency to be deliriogenic, I recommend avoiding benzodiazepines if possible. Likewise, due to their blockade of cholinergic receptors, sedating antihistamines can be deliriogenic and are best avoided in delirious or recently-delirious patients, so I recommend avoiding diphenhydramine. We will continue to assess pt as his delirium clears in order to consider what his psychiatric treatment needs may be. Psych History Identifying Data 42 y/o man with an extensive psychiatric history who was found on the ground outside of [facility]" and was admitted on 12/19/2022 with hypothermia and rhabdomyolysis. The hospitalist service consulted psychiatry for recommendations on management of his underlying psychiatric problems. Chief Complaint "I don't know". History of Present Illness 42 y/o man with many psychiatric ED visits and admissions elsewhere but never admitted to psychiatry here. He chart includes a diagnosis of schizophrenia, but it's unclear if that's a diagnosis based on meeting criteria or a presumption based on his frequent presentation with hallucinosis. 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 His toxicology screen from the ED was positive for metabolites of amphetamine, MDMA, and cannabis, but not for any opioids included in the screen. Pt has no recall of the past several days, and doesn't recall any of the events leading up to or thus far during this hospitalization. He is very hazy about other history and is not able to say when he was last in any sort of psychiatric treatment or what form such treatment may have taken. (Old notes from his many psychiatric ED presentations typically she he's "off meds" but haven't specified what those medications were). Pt is oriented to person (though I had to ask him "tell me your FULL name" several times before he included his middle name), [facility] in [facility], and Monday. He reads the date from the orientation board in his room and acknowledges he wouldn't have known otherwise. He evidences difficulty comprehending simple instructions and was not able to repeat 3 objects for a memory test. His level of arousal doesn't fluctuate appreciably during my assess ment, but this appears to the first day this admission during which he was sufficiently arousable to be assessed. He's superficially cooperative and clearly wishes to participate but struggles to comprehend what's happening and has poor recent and remote recall. Allergies Allergy/AdvReac Type Severity Reaction Status Date / Time bee venom protein (honey bee) Allergy Severe anaphylaxis Verified 04/25/22 10:52 aspirin Allergy Intermediate HIVES Verified 04/25/22 10:52 cat dander Allergy Intermediate CONGESTION, Verified 04/25/22 10:52 SNEEZING, ITCHY EYES grass pollen Allergy Intermediate Congested Verified 04/25/22 10:52 Home Medications Medication Instructions Recorded Confirmed Type No Known Home Medications 04/17/21 12/19/22 History Patient History Medical History (Updated 12/21/22 @ 15:14 by Jose Luis Franklin MD) Encephalopathy Schizophrenia by history Substance abuse Surgical History No pertinent past surgical history Family History Other Family history unknown Social History Smoking Status: Current some day smoker Tobacco Type: Cigarettes Hx Alcohol Use: Yes Hx Substance Use: Yes Non-Prescribed Medications: Crack / Cocaine and Methamphetamines Last Used Substance: Unknown Substance Use Type Other:: info obtained from H&P Preferred Language: Belizean Communication Ability: Unable Driftman Required: No Beliefs That Will Affect Care: None Current Living Situation: Homeless Current Living Situation Comment: homeless Other Information That Helps Us Care for You: No Feels Safe at Home: Yes Assistive Devices: None Physical Exam Psychiatric: Orientation: oriented to person, oriented to place and oriented to time (only by reference to orientation board) Apperance: + disheveled and appeared stated age Eye Contact: + poor eye contact restless quiet, brief Affect: + blunted affect Mood: + anxious mood disorganized denies any hallucinations or delusions, but it's not clear whether he understa nds the question. There is no behavioral indication of his responding to internal stimuli Suicidal Thoughts: denies suicidal thoughts Homicidal Thoughts: denies homicidal thoughts denies any hallucinations or delusions, but it's not clear whether he understands the question. There is no behavioral indication of his responding to internal stimuli Cognition: + recent memory not intact, + remote memory not intact and + attention not intact Estimated Intelligence: average estimated intelligence Insight: + poor insight Judgment: + poor judgement Vital Signs (Past 24 Hours): Last Vital Signs Temp 36.5 C 12/21/22 11:57 Pulse 71 12/21/22 11:57 Resp 14 12/21/22 11:57 BP 110/70 12/21/22 11:57 Pulse Ox 97 12/21/22 11:57 O2 Del Method Room Air 12/21/22 11:57 Exam Statement: I have reviewed the physical exam that was performed by the hospitalist. I accept that physical as correct and adequate for the purposes of the inpatient physical exam. Results & Data ([facility]) Medications Administered Enoxaparin Sodium (Enoxaparin Inj 40 Mg/0.4 Ml Syr) 40 mg SQ QAM KAITLYNN Stop: 01/19/23 08:59 Last Admin: 12/21/22 10:20 Dose: 40 mg Documented By: Admin: 12/20/22 10:09 Dose: Not Given Documented By: LISA Sodium Chloride (Nss 1000ml) 1,000 mls @ 150 mls/hr IV .Q6H40M KAITLYNN Stop: 01/18/23 09:29 Last Admin: 12/21/22 10:43 Dose: 150 mls/hr Documented By: Infusion: 12/21/22 09:28 Dose: 150 mls/hr Documented By: Admin: 12/21/22 02:47 Dose: 150 mls/hr Documented By: Infusion: 12/21/22 02:47 Dose: 150 mls/hr Documented By: Admin: 12/20/22 20:11 Dose: 150 mls/hr Documented By: Infusion: 12/20/22 20:11 Dose: 150 mls/hr Documented By: Admin: 12/20/22 13:52 Dose: 150 mls/hr Documented By: Infusion: 12/20/22 13:52 Dose: 150 mls/hr Documented By: Admin: 12/20/22 07:13 Dose: 150 mls/hr Documented By: Infusion: 12/20/22 07:13 Dose: 150 mls/hr Documented By: Admin: 12/20/22 00:34 Dose: 150 mls/hr Documented By: Infusion: 12/20/22 00:28 Dose: 150 mls/hr Documented By: Admin: 12/19/22 17:47 Dose: 150 mls/hr Documented By: Infusion: 12/19/22 17:46 Dose: 150 mls/hr Documented By: Admin: 12/19/22 11:05 Dose: 150 mls/hr Documented By: VIVEK Nicotine (Nicotine 21 Mg/24 Hr Tdsy) 21 mg TD QAM KAITLYNN Stop: 01/20/23 12:59 Last Admin: 12/21/22 13:34 Dose: 21 mg Documented By: LISA Coding Level of Care Code INP/OBS CONSULT LVL 4, 60 MIN Diagnoses Metabolic encephalopathy G93.41 Polysubstance dependence F19.20 Schizophrenia F20.9 Schizophrenia type: unspecified Time Spent (min) 73 Comment on the floor [id number] with pt and conferring with primary care team members
[2022-12-21] MEDS ORDERED: cloNIDine HCL 0.1 MG TAB PO PRN (15:55)
--- NOTE | 2022-12-21 16:01 | Hospitalist Progress Note ---
Date of Service December 21, 2022 Assessment & Plan (1) Metabolic encephalopathy: Plan: Patient is a 42 yr male with H/O substance abuse, drug-induced psychosis, and possible diagnosis of schizophrenia who was found outside [employer] this morning after spending the night outside and was noted to be confused. Currently, homeless. Suspect confusion is multifactorial related to hypothermia from exposure, substance use, and mild rhabdomyolysis. Acute metabolic encephalopathy Acute rhabdomyolysis Hypothermia Substance abuse: Patient admits to inhaling drugs (Unknown drugs per patient) --CT Head:No acute intracranial abnormality. --CXR:Mild pulmonary edema. 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 Campos. Plan of care discussed and as outlined above. Code Status: Full code DVT Prophylaxis: Altagracia Miller PA-C Admission and Anticipated Discharge Date Admission Date: December 19, 2022 Subjective Patient is seen and examined at bedside More alert, awake today Reports having generalized body ache Eager to get discharged Denies any chest pain, shortness of breath, nausea, abdominal pain Review of Systems Review of Systems: All systems reviewed & are unremarkable except as noted in Subjective Physical Exam Physical Exam: Physical Exam: Vitals signs as noted above General Appearance:Moderately built and nourished, no apparent distress Head: normocephalic, Atraumatic Eyes: normal inspection, EOMI Neck: supple, Trachea midline Respiratory/Chest: Normal breath sounds, CTA, No accessory muscle use Cardiovascular: S1, S2, No murmur Abdomen/GI:Soft, Non tender, Bowel sounds present Extremities/Musculoskeletal:normal inspection, no edema Neurologic/Psych:AAOX3, grossly no focal neurological deficits Skin: normal color, warm Results & Data Results & Data ([facility]) Vital Signs (Past 12 Hours) Vital Signs Temp Pulse Pulse Resp BP BP Pulse Ox 12/21/22 15:32 36.8 C 82 16 141/99 H 146/109 H 96 12/21/22 11:57 36.5 C 71 14 110/70 97 12/21/22 07:22 36.5 C 77 18 124/81 97 12/21/22 07:01 70 12/21/22 04:03 36.6 C 71 18 121/80 96 O2 Del Method 12/21/22 15:32 Room Air 12/21/22 11:57 Room Air 12/21/22 07:22 Room Air 12/21/22 07:01 12/21/22 04:03 Room Air Laboratory Results [facility] 12/21/22 08:55 Sodium 138 Potassium 3.8 Chloride 108 H Carbon Dioxide 26 BUN 14 Creatinine 0.85 Glucose 114 H Calcium 8.5 Cardiac Enzymes 12/21/22 Range/Units 08:55 Total Creatine Kinase 522 H (30-223) U/L Liver Function 12/21/22 Range/Units 08:55 Total Bilirubin 1.3 H (0.2-1.0) mg/dl Direct Bilirubin 0.3 H (0-0.2) mg/dl AST 30 (13-39) U/L ALT 28 (7-52) U/L Alkaline Phosphatase 79 (34-104) U/L Albumin 3.6 (3.4-5.0) gm/dl
[2022-12-22] MEDS: SODIUM CHLORIDE 0.9% 1000ML 1,000 ML IV SCH ×2 (00:38→06:07)
[2022-12-22] MEDS: NICOTINE 21 MG/24 HR TDSY TD SCH (08:51)
[2022-12-22] MEDS: ENOXAPARIN INJ 40 MG/0.4 ML SYR SQ SCH (08:52)
--- NOTE | 2022-12-22 12:06 | Hospitalist Progress Note ---
Date of Service December 22, 2022 Assessment & Plan (1) Metabolic encephalopathy: Plan: Patient is a 42 yr male with H/O substance abuse, drug-induced psychosis, and possible diagnosis of schizophrenia who was found outside [employer] this morning after spending the night outside and was noted to be confused. Currently, homeless. Suspect confusion is multifactorial related to hypothermia from exposure, substance use, and mild rhabdomyolysis. Acute metabolic encephalopathy Acute rhabdomyolysis Hypothermia Substance abuse: Patient admits to inhaling drugs (Unknown drugs per patient) --CT Head:No acute intracranial abnormality. --CXR:Mild pulmonary edema. 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 Campos. Plan of care discussed and as outlined above. Code Status: Full code DVT Prophylaxis: Altagracia Miller PA-C Admission and Anticipated Discharge Date Admission Date: December 19, 2022 Subjective Patient is seen and examined at bedside States feeling well No new complaints Generalized body ache improved Denies any chest pain, shortness of breath, nausea, abdominal pain Plan to discharge home today Review of Systems Review of Systems: All systems reviewed & are unremarkable except as noted in Subjective Physical Exam Physical Exam: Physical Exam: Vitals signs as noted above General Appearance:Moderately built and nourished, no apparent distress Head: normocephalic, Atraumatic Eyes: normal inspection, EOMI Neck: supple, Trachea midline Respiratory/Chest: Normal breath sounds, CTA, No accessory muscle use Cardiovascular: S1, S2, No murmur Abdomen/GI:Soft, Non tender, Bowel sounds present Extremities/Musculoskeletal:normal inspection, no edema Neurologic/Psych:AAOX3, grossly no focal neurological deficits Skin: normal color, warm Results & Data Results & Data ([facility]) Vital Signs (Past 12 Hours) Vital Signs Temp Pulse Pulse Resp BP BP Pulse Ox 12/22/22 11:33 36.4 C L 78 16 123/79 97 12/22/22 08:28 36.3 C L 73 16 112/74 93 12/22/22 08:00 68 12/22/22 08:00 12/22/22 04:44 36.6 C 70 20 109/75 95 12/22/22 00:36 79 Pulse Ox O2 Del Method O2 Del Method 12/22/22 11:33 Room Air 12/22/22 08:28 Room Air 12/22/22 08:00 12/22/22 08:00 96 Room Air 12/22/22 04:44 Room Air 12/22/22 00:36
[2022-12-22 12:07] LABS: Albumin Level 3.9 gm/dl (3.4-5.0); BUN Creatinine Ratio 11.5 (10-20); Bilirubin Direct 0.2 mg/dl (0-0.2); Bilirubin,Total 0.7 mg/dl (0.2-1.0); Calcium 8.9 mg/dl (8.5-10.1); Creatinine Clr Calc Pharmacy 94.6 ml/min; Est GFR (African American) 101.4 ml/min; Est GFR (Non-African American) 87.5 ml/min; Total Protein 6.7 gm/dl (6.0-8.3)
--- NOTE | 2022-12-22 12:12 | Discharge Summary ---
Date of Service December 22, 2022 Admission HPI Per Admitting Provider This is a 42 y/o male with a PMH of substance abuse, drug-induced psychosis and question of schizophrenia who presented to the ED via EMS this morning with confusion. Pt is a poor historian - slow to answer questions, difficulty with memory - so history is somewhat limited and the chart was extensively reviewed for additional information. Pt is homeless per his report - apparently spent the night outside [employer] last night and was found outside this morning so EMS was called. The exact sequence of events is somewhat unclear and pt cannot recall what happened. He denies pain at present but reports that he has been having dental pain and stomach pain over the last few days. Denies vomiting but did have diarrhea yesterday, none today. He is unclear as to when he last ate but reports he has not been eating much over the last several days. He does smoke cigarettes, with amount depending on finances. He reports occasional alcohol. Admits to use of meth and cocaine but unclear when his last use was. He denies taking medications regularly. Admission Exam Per Admitting Provider Physical Exam Constitutional: no acute distress flushed, speech is slow, difficulty answering questions Eyes: PERRL, conjunctivae normal, anicteric sclerae ENMT: Mouth: + poor dentition Neck: trachea midline Respiratory: no respiratory distress and no labored breathing Auscultation: lungs clear to auscultation bilaterally Cardiovascular: Rate/Rhythm: regular rhythm and + tachycardic Heart Sounds: no murmur Vessels: radial pulses present Extremities: no pedal edema Gastrointestinal (Abdomen): Inspection/Auscultation: normal bowel sounds; abdomen not distended Percussion/Palpation: + abdomen tender (mild lower quadrant but no guarding or rebound) and abdomen soft Musculoskeletal: Head/Neck/Chest: normocephalic, head atraumatic and neck supple Skin: no jaundice, no track dennis noted, no wounds noted on UE or LE +tiny pustule on right abdomen but non-t zoraida, no surrounding erythema, no drainage Neurologic: moves all extremities and + confused (oriented x 2 (person, place)) Psychiatric: Orientation: oriented to person and oriented to place; + not oriented to time Eye Contact: + fair eye contact Insight: + poor insight Principal Diagnosis Acute metabolic encephalopathy Acute rhabdomyolysis Hypothermia Substance abuse Tobacco use disorder Discharge Data Allergies Allergy/AdvReac Type Severity Reaction Status Date / Time bee venom protein (honey bee) Allergy Severe anaphylaxis Verified 04/25/22 10:52 aspirin Allergy Intermediate HIVES Verified 04/25/22 10:52 cat dander Allergy Intermediate CONGESTION, Verified 04/25/22 10:52 SNEEZING, ITCHY EYES grass pollen Allergy Intermediate Congested Verified 04/25/22 10:52 Consultations 12/19/22 08:32 ED Decision to Admit Stat 12/19/22 10:36 Consult Psychiatry Routine Procedures Performed Laboratory Results WBC 8.77 K/ul (4.8-10.8) 12/20/22 11:58 RBC 4.59 M/uL (4.70-6.10) L 12/20/22 11:58 Hgb 13.5 g/dl (14.0-18.0) L 12/20/22 11:58 Hct 39.6 % (42.0-52.0) L 12/20/22 11:58 MCV 86.3 fL (80.0-100.0) 12/20/22 11:58 MCH 29.4 pg (25.0-34.0) 12/20/22 11:58 MCHC 34.1 g/dL (32.0-36.0) 12/20/22 11:58 RDW Std Deviation 37.8 fL (36.4-46.3) 12/20/22 11:58 RDW Coeff of Rafal 11.9 % (11.5-14.5) 12/20/22 11:58 Plt Count 272 K/uL (130-400) 12/20/22 11:58 MPV 10.1 fL (9.4-12.4) 12/20/22 11:58 Immature Gran % (Auto) 0.3 % 12/20/22 11:58 Neut % (Auto) 71.1 % 12/20/22 11:58 Lymph % (Auto) 18.2 % 12/20/22 11:58 Baca % (Auto) 7.2 % 12/20/22 11:58 Eos % (Auto) 2.7 % 12/20/22 11:58 Baso % (Auto) 0.5 % 12/20/22 11:58 Neut # (Auto) 6.23 K/uL (1.40-6.50) 12/20/22 11:58 Lymph # (Auto) 1.60 K/uL (1.2-3.4) 12/20/22 11:58 Baca # (Auto) 0.63 K/uL (0.11-0.59) H 12/20/22 11:58 Eos # (Auto) 0.24 K/uL (0-0.50) 12/20/22 11:58 Baso # (Auto) 0.04 K/uL (0-0.2) 12/20/22 11:58 Immature Gran # (Auto) 0.03 K/uL (0.01-0.20) 12/20/22 11:58 Sodium 139 mmol/L (136-145) 12/22/22 11:22 Potassium 4.0 mmol/L (3.5-5.1) 12/22/22 11:22 Chloride 107 mmol/L (98-107) 12/22/22 11:22 Carbon Dioxide 29 mmol/L (21-32) 12/22/22 11:22 Anion Gap 3 (3-11) 12/22/22 11:22 BUN 12 mg/dl (6-23) 12/22/22 11:22 Creatinine 1.04 mg/dl (0.6-1.4) 12/22/22 11:22 Est Cr Clr Drug Dosing 94.6 ml/min 12/22/22 11:22 Est GFR ( Amer) 101.4 ml/min 12/22/22 11:22 Est GFR (Non-Af Amer) 87.5 ml/min 12/22/22 11:22 BUN/Creatinine Ratio 11.5 (10-20) 12/22/22 11:22 Glucose 92 mg/dl (70-99(Fasting)) 12/22/22 11:22 Calcium 8.9 mg/dl (8.5-10.1) 12/22/22 11:22 Phosphorus 3.8 mg/dl (2.5-4.9) 12/19/22 07:00 Magnesium 2.3 mg/dl (1.7-2.4) 12/19/22 07:00 Total Bilirubin 0.7 mg/dl (0.2-1.0) D 12/22/22 11:22 Direct Bilirubin 0.2 mg/dl (0-0.2) 12/22/22 11:22 AST 28 U/L (13-39) 12/22/22 11:22 ALT 34 U/L (7-52) 12/22/22 11:22 Alkaline Phosphatase 83 U/L (34-104) 12/22/22 11:22 Total Creatine Kinase 254 U/L (30-223) H 12/22/22 11:22 Troponin I High Sens 4.6 pg/ml (0-20) 12/19/22 10:44 Total Protein 6.7 gm/dl (6.0-8.3) 12/22/22 11:22 Albumin 3.9 gm/dl (3.4-5.0) 12/22/22 11:22 Globulin 3.1 gm/dl (2.5-4.0) 12/19/22 07:00 Albumin/Globulin Ratio 1.5 (0.9-2) 12/19/22 07:00 Lipase 10 U/L (11-82) L 12/19/22 07:00 TSH 1.332 uIu/ml (0.300-4.500) 12/19/22 07:00 Urine Color Dark Yellow 12/19/22 Unknown Urine Appearance Clear (Clear) 12/19/22 Unknown Urine pH 5.5 (4.5-7.5) 12/19/22 Unknown Ur Specific [place] 1.035 (1.000-1.030) H 12/19/22 Unknown Urine Protein Trace (Negative) H 12/19/22 Unknown Urine Glucose (UA) Negative (Negative) 12/19/22 Unknown Urine Ketones 2+ (Negative) H 12/19/22 Unknown Urine Blood Negative (Negative) 12/19/22 Unknown Urine Nitrite Negative (Negative) 12/19/22 Unknown Urine Bilirubin Negative (Negative) 12/19/22 Unknown Urine Urobilinogen Negative (Negative) 12/19/22 Unknown Ur Leukocyte Esterase Negative (Negative) 12/19/22 Unknown Urine WBC (Auto) 0 /hpf (0-5) 12/19/22 Unknown Urine RBC (Auto) 0-4 /hpf (0-4) 12/19/22 Unknown U Hyaline Cast (Auto) 1-5 /lpf (0-5) 12/19/22 Unknown U Epithel Cells (Auto) 5-10 /lpf (0-5) H 12/19/22 Unknown Urine Bacteria (Auto) Negative (Negative) 12/19/22 Unknown Urine Opiates Screen Neg (Neg) 12/19/22 Unknown Ur Methadone, Qual Neg (Neg) 12/19/22 Unknown Urine Barbiturates Neg (Neg) 12/19/22 Unknown Ur Phencyclidine (PCP) Neg (Neg) 12/19/22 Unknown U Amphetamin/Meth Scrn Pos (Neg) H 12/19/22 Unknown MDMA (Ecstasy) Screen Pos (Neg) H 12/19/22 Unknown U Benzodiazepines Scrn Neg (Neg) 12/19/22 Unknown Ur Cocaine Metabolite Neg (Neg) 12/19/22 Unknown U Marijuana (THC) Screen Pos (Neg) H 12/19/22 Unknown Ethyl Alcohol mg/dL < 10.0 mg/dl (<10.0) 12/19/22 07:00 SARS-CoV-2, RNA, NAAT NEGATIVE (NEGATIVE) 12/19/22 08:25 Impressions Chest X-Ray 12/19/22 07:13 XR chest 1V portable CLINICAL HISTORY: weakness TECHNIQUE: Single frontal radiograph of the chest was obtained. Comparison: Comparison is made to chest 12/19/2019 FINDINGS: No lines and tubes are seen. The cardiomediastinal silhouette is normal. Prominence and cephalization of the vasculature is seen. No evidence of pleural effusion or pneumothorax. IMPRESSION: Mild pulmonary edema. ACT 112: Negative or not required by law. Electronically signed by: Brody Mancia M.D. 12/19/2022 7:[address] 12/19/22 07:13 CT head/brain wo con CLINICAL HISTORY: 42 years-old Male with ams. Acutely altered mental status TECHNIQUE: Multiple axial CT images of the head were obtained without contrast. A dose lowering technique was utilized adhering to the principles of ALARA. CT DOSE: 614.27 mGy.cm COMPARISON: Head CT 10/09/2021 FINDINGS: No acute intracranial hemorrhage, midline shift, intracranial mass, hydrocephalus, territorial ischemia or abnormal extra-axial collection. The calvarium is intact. The paranasal sinuses, mastoid air cells, and middle ear cavities are clear. IMPRESSION: No acute intracranial abnormality. ACT 112: Negative or not required by law. The above report was generated using voice recognition software. It may contain grammatical, syntax or spelling errors. Electronically signed by: Tobias Sams M.D. 12/19/2022 7:47 AM Ordered Studies 12/19/22 07:13 CT head/brain wo con Stat Hospital Course (1) Metabolic encephalopathy: Patient is a 42 yr male with H/O substance abuse, drug-induced psychosis, and possible diagnosis of schizophrenia who was found outside [employer] this morning after spending the night outside and was noted to be confused. Currently, homeless. Suspect confusion is multifactorial related to hypothermia from exposure, substance use, and mild rhabdomyolysis. Acute metabolic encephalopathy Acute rhabdomyolysis Hypothermia Substance abuse: Patient admits to inhaling drugs (Unknown drugs per patient) --CT Head:No acute intracranial abnormality. --CXR:Mild pulmonary edema. 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 Campos. Plan of care discussed and as outlined above. Code Status: Full code DVT Prophylaxis: Lovenox Mahsa Miller PA-C Total Time Total Time Spent Total Time Spent (In Minutes): 56 minutes Discharge Plan Discharge Items Patient Disposition: Home - Self-Care Reason For Visit: METABOLIC ENCEPHALOPATHY, HYPOTHERMIA Discharge Diagnosis: Acute metabolic encephalopathy Acute rhabdomyolysis Hypothermia Substance abuse Tobacco use disorder Activity: Per Instructions section Exercise/Sports: Gradually increase as tolerated Non-emergency contact: Primary Care Provider Call non-emergency contact if: you have any medication questions, your symptoms worsen, your pain is concerning for you and you have a fever Follow-up/Referrals: PCP,NO [Primary Care Provider] - Diet: Heart Healthy Addtl Attending Provider Instructions: Follow up with your Primary care physician in 1 week as advised Seek immediate medical attention if your symptoms reoccur or worsen Please take all medications as instructed on discharge list below. Please call if you have any questions or problems. You can reach a [facility] hospitalist on duty at [facility] 24 hours a day by calling [phone] Pending Studies at Discharge: No Stand-Alone Forms: [facility], Smoking Cessation Medications and DC Order Prescriptions: No Action No Known Home Medications Discharge Orders: Discharge Order (Routine); Ordered 12/22/22 Ordered By: Ceferino العراقي Admission Data Admit Date/Time: 12/19/22 09:15 Attending Provider: Ceferino العراقي Admit Provider: Nadeen Campos I. Primary Care Provider: PCP,NO Other Providers: Nadeen Campos I. ; Juli Franco ; Fabiola Oneal ; Jose Luis Franklin
[2022-12-24 15:28] LABS: Amphetamine Urine, Confirm 3300 ng/mL (<250); MDA negative; MDEA negative; MDMA (Ecstasy) Urine, Confirm negative; Marijuana Quant, GCMS Urine 61 ng/mL (<5); Methamphetamine, Ur Confirm >15000 ng/mL (<250)
== END 2022-12-22 15:57 | disposition home or self-care (01) | DRG 922 ==
LOC: ED 06:48 → 2E 09:15 → SUATTDRO 09:15 → 2E 10:09

== ENCOUNTER 2022-12-25 21:05 | Observation (INO) ==
[2022-12-25] MEDS ORDERED: VANCOMYCIN CONSULT ACTIVE PRN (21:50)
[2022-12-25] MEDS ORDERED: cefTRIAXone SODIUM 2,000 MG/70 ML BAG IV STA (21:50)
[2022-12-25] MEDS ORDERED: VANCOMYCIN HCL 2,000 MG in SODIUM CHLORIDE 0.9% 500 ML IV ONE (21:50)
[2022-12-25] MEDS ORDERED: dexAMETHasone**PF** 10 MG/ML VIAL IV ONE (21:51)
[2022-12-25] MEDS: SODIUM CHLORIDE 0.9% 1000ML 1,000 ML IV SCH ×2 (22:02→23:20)
[2022-12-25] MEDS ORDERED: ACETAMINOPHEN 1,000 MG/100 ML VIAL IV STA (22:12)
--- NOTE | 2022-12-25 22:31 | Emergency Department Note ---
History of Present Illness General Chief complaint: Illness Stated complaint: UNKNOWN DRUG ABUSE Time Seen by Provider: 12/25/22 21:30 History of Present Illness Maximum Pain Intensity: 8 This 42-year-old homeless gentleman with history of polysubstance abuse that was just here in the ER presents for fever and altered mental status. Patient is sitting in the bed not answering questions and appears confused. History is obtained from the nurses. Patient is febrile and tachycardic. Home Medications Medication Instructions Recorded Confirmed Type No Known Home Medications 04/17/21 12/25/22 History Allergies Allergy/AdvReac Type Severity Reaction Status Date / Time bee venom protein (honey bee) Allergy Severe anaphylaxis Verified 12/25/22 21:44 aspirin Allergy Intermediate HIVES Verified 12/25/22 21:44 cat dander Allergy Intermediate CONGESTION, Verified 12/25/22 21:44 SNEEZING, ITCHY EYES grass pollen Allergy Intermediate Congested Verified 12/25/22 21:44 Past Med/Surg History Medical History Encephalopathy Schizophrenia by history Substance abuse Surgical History No pertinent past surgical history Family History Other Family history unknown Social History Smoking Status: Current some day smoker Tobacco Type: Cigarettes Second Hand Exposure: No; Do You Dip or Chew Tobacco: No; Tobacco Cessation Education Requested by Patient: No Hx Alcohol Use: Yes Hx Substance Use: Yes Non-Prescribed Medications: Crack / Cocaine and Methamphetamines Last Used Substance: Unknown Substance Use Type Other:: Pt states cocaine,marajuana, urine pos amphetamines Preferred Language: Chinese Communication Ability: Effective 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 Required: No Beliefs That Will Affect Care: None Current Living Situation: Homeless Current Living Situation Comment: homeless Other Information That Helps Us Care for You: No Feels Safe at Home: No Is there a partner from a previous relationship who is making you feel unsafe now?: No Any Concerns about Your Family Situation: No Would You Like to Speak to Someone About Your Situation: No Assistive Devices: None Review of Systems A total of 10 systems reviewed and were otherwise negative Physical Exam Vital Signs Vital Signs - 24 hr 12/25/22 21:10 12/25/22 22:11 12/25/22 22:00 Temperature 38.1 C H Temperature Source Temporal Artery Scan Pulse Rate 114 H 105 H Pulse Rate [Apical] Pulse Rate [Carotid] 110 H Pulse Rate from SpO2 Sensor Pulse Rhythm Regular Pulse Rhythm [Apical] Pulse Rhythm [Carotid] Regular Pulse Strength [Apical] Pulse Strength [Carotid] Normal Respiratory Rate 14 18 18 Respiratory Effort / Characteristics Non-Labored Spontaneous Non-Labored Respiratory Depth Normal Normal Respiratory Pattern Regular Blood Pressure 120/88 Blood Pressure [Left Arm] 116/74 Blood Pressure Mean 98 Blood Pressure Mean [Left Arm] 88 Blood Pressure Position [Left Arm] Lying Pulse Oximetry 97 96 96 Oxygen Delivery Method Room Air Room Air Room Air Sepsis Recent Fever Within 48 Hours No Sepsis New/Unexplained Change in Mental Status No Sepsis Action Taken by Nursing No Action Required 12/26/22 00:00 12/25/22 22:11 12/25/22 22:20 Temperature Temperature Source Pulse Rate 101 H 107 H Pulse Rate [Apical] 108 H Pulse Rate [Carotid] Pulse Rate from SpO2 Sensor 101 H 106 H Pulse Rhythm Pulse Rhythm [Apical] Regular Pulse Rhythm [Carotid] Pulse Strength [Apical] Normal Pulse Strength [Carotid] Respiratory Rate 20 20 24 Respiratory Effort / Characteristics Non-Labored Spontaneous Respiratory Depth Normal Respiratory Pattern Regular Blood Pressure Blood Pressure [Left Arm] 103/60 Blood Pressure Mean Blood Pressure Mean [Left Arm] 74 Blood Pressure Position [Left Arm] Lying Pulse Oximetry 98 95 96 Oxygen Delivery Method Room Air Sepsis Recent Fever Within 48 Hours Sepsis New/Unexplained Change in Mental Status Sepsis Action Taken by Nursing 12/25/22 22:46 12/25/22 22:46 12/25/22 22:50 Temperature Temperature Source Pulse Rate 108 H 99 H Pulse Rate [Apical] Pulse Rate [Carotid] Pulse Rate from SpO2 Sensor 101 H Pulse Rhythm Pulse Rhythm [Apical] Pulse Rhythm [Carotid] Pulse Strength [Apical] Pulse Strength [Carotid] Respiratory Rate 24 Respiratory Effort / Characteristics Respiratory Depth Respiratory Pattern Blood Pressure 116/74 Blood Pressure [Left Arm] Blood Pressure Mean 88 Blood Pressure Mean [Left Arm] Blood Pressure Position [Left Arm] Pulse Oximetry 97 Oxygen Delivery Method Sepsis Recent Fever Within 48 Hours Sepsis New/Unexplained Change in Mental Status Sepsis Action Taken by Nursing 12/25/22 23:00 12/25/22 23:00 12/25/22 23:10 Temperature Temperature Source Pulse Rate 106 H 106 H Pulse Rate [Apical] Pulse Rate [Carotid] Pulse Rate from SpO2 Sensor 106 H 107 H Pulse Rhythm Pulse Rhythm [Apical] Pulse Rhythm [Carotid] Pulse Strength [Apical] Pulse Strength [Carotid] Respiratory Rate 20 20 Respiratory Effort / Characteristics Respiratory Depth Respiratory Pattern Blood Pressure 116/59 L Blood Pressure [Left Arm] Blood Pressure Mean 78 Blood Pressure Mean [Left Arm] Blood Pressure Position [Left Arm] Pulse Oximetry 93 94 Oxygen Delivery Method Sepsis Recent Fever Within 48 Hours Sepsis New/Unexplained Change in Mental Status Sepsis Action Taken by Nursing 12/25/22 23:20 12/25/22 23:30 12/25/22 23:40 Temperature Temperature Source Pulse Rate 104 H 101 H 103 H Pulse Rate [Apical] Pulse Rate [Carotid] Pulse Rate from SpO2 Sensor 105 H 102 H 103 H Pulse Rhythm Pulse Rhythm [Apical] Pulse Rhythm [Carotid] Pulse Strength [Apical] Pulse Strength [Carotid] Respiratory Rate 20 19 20 Respiratory Effort / Characteristics Respiratory Depth Respiratory Pattern Blood Pressure Blood Pressure [Left Arm] Blood Pressure Mean Blood Pressure Mean [Left Arm] Blood Pressure Position [Left Arm] Pulse Oximetry 92 95 92 Oxygen Delivery Method Sepsis Recent Fever Within 48 Hours Sepsis New/Unexplained Change in Mental Status Sepsis Action Taken by Nursing 12/25/22 23:50 12/26/22 00:00 12/26/22 00:00 Temperature Temperature Source Pulse Rate 101 H 102 H Pulse Rate [Apical] Pulse Rate [Carotid] Pulse Rate from SpO2 Sensor 102 H 102 H Pulse Rhythm Pulse Rhythm [Apical] Pulse Rhythm [Carotid] Pulse Strength [Apical] Pulse Strength [Carotid] Respiratory Rate 24 20 Respiratory Effort / Characteristics Respiratory Depth Respiratory Pattern Blood Pressure 103/60 Blood Pressure [Left Arm] Blood Pressure Mean 74 Blood Pressure Mean [Left Arm] Blood Pressure Position [Left Arm] Pulse Oximetry 95 94 Oxygen Delivery Method Sepsis Recent Fever Within 48 Hours Sepsis New/Unexplained Change in Mental Status Sepsis Action Taken by Nursing 12/26/22 00:10 12/26/22 00:20 12/26/22 00:24 Temperature Temperature Source Pulse Rate 105 H 103 H 101 H Pulse Rate [Apical] Pulse Rate [Carotid] Pulse Rate from SpO2 Sensor 108 H 103 H 101 H Pulse Rhythm Pulse Rhythm [Apical] Pulse Rhythm [Carotid] Pulse Strength [Apical] Pulse Strength [Carotid] Respiratory Rate 19 19 20 Respiratory Effort / Characteristics Respiratory Depth Respiratory Pattern Blood Pressure Blood Pressure [Left Arm] Blood Pressure Mean Blood Pressure Mean [Left Arm] Blood Pressure Position [Left Arm] Pulse Oximetry 92 93 94 Oxygen Delivery Method Sepsis Recent Fever Within 48 Hours Sepsis New/Unexplained Change in Mental Status Sepsis Action Taken by Nursing 12/26/22 00:24 12/25/22 22:00 12/26/22 00:30 Temperature Temperature Source Pulse Rate 102 H Pulse Rate [Apical] Pulse Rate [Carotid] Pulse Rate from SpO2 Sensor Pulse Rhythm Pulse Rhythm [Apical] Pulse Rhythm [Carotid] Pulse Strength [Apical] Pulse Strength [Carotid] Respiratory Rate Respiratory Effort / Characteristics Respiratory Depth Respiratory Pattern Blood Pressure 115/53 L 113/54 L Blood Pressure [Left Arm] Blood Pressure Mean 73 73 Blood Pressure Mean [Left Arm] Blood Pressure Position [Left Arm] Pulse Oximetry Oxygen Delivery Method Sepsis Recent Fever Within 48 Hours Sepsis New/Unexplained Change in Mental Status Sepsis Action Taken by Nursing 12/26/22 00:30 12/26/22 00:40 12/26/22 00:50 Temperature Temperature Source Pulse Rate 102 H 98 H 95 H Pulse Rate [Apical] Pulse Rate [Carotid] Pulse Rate from SpO2 Sensor 102 H 98 H Pulse Rhythm Pulse Rhythm [Apical] Pulse Rhythm [Carotid] Pulse Strength [Apical] Pulse Strength [Carotid] Respiratory Rate 19 20 20 Respiratory Effort / Characteristics Respiratory Depth Respiratory Pattern Blood Pressure Blood Pressure [Left Arm] Blood Pressure Mean Blood Pressure Mean [Left Arm] Blood Pressure Position [Left Arm] Pulse Oximetry 93 93 Oxygen Delivery Method Sepsis Recent Fever Within 48 Hours Sepsis New/Unexplained Change in Mental Status Sepsis Action Taken by Nursing 12/26/22 01:00 12/26/22 01:00 12/26/22 01:10 Temperature Temperature Source Pulse Rate 96 H 96 H Pulse Rate [Apical] Pulse Rate [Carotid] Pulse Rate from SpO2 Sensor Pulse Rhythm Pulse Rhythm [Apical] Pulse Rhythm [Carotid] Pulse Strength [Apical] Pulse Strength [Carotid] Respiratory Rate 18 20 Respiratory Effort / Characteristics Respiratory Depth Respiratory Pattern Blood Pressure 105/63 Blood Pressure [Left Arm] Blood Pressure Mean 77 Blood Pressure Mean [Left Arm] Blood Pressure Position [Left Arm] Pulse Oximetry Oxygen Delivery Method Sepsis Recent Fever Within 48 Hours Sepsis New/Unexplained Change in Mental Status Sepsis Action Taken by Nursing 12/26/22 00:58 Temperature 36.9 C Temperature Source Oral Pulse Rate Pulse Rate [Apical] Pulse Rate [Carotid] Pulse Rate from SpO2 Sensor Pulse Rhythm Pulse Rhythm [Apical] Pulse Rhythm [Carotid] Pulse Strength [Apical] Pulse Strength [Carotid] Respiratory Rate Respiratory Effort / Characteristics Respiratory Depth Respiratory Pattern Blood Pressure Blood Pressure [Left Arm] Blood Pressure Mean Blood Pressure Mean [Left Arm] Blood Pressure Position [Left Arm] Pulse Oximetry Oxygen Delivery Method Sepsis Recent Fever Within 48 Hours Sepsis New/Unexplained Change in Mental Status Sepsis Action Taken by Nursing VITALS: Vitals are noted on the nurse's note and reviewed by myself. Vital signs febrile and tachycardic. GENERAL: White male confused appearing not following commands mumbling to me SKIN: The skin was without rashes, or bruising. There is no tenting of the skin. Capillary reflex less than 2 seconds. HEAD: Normocephalic atraumatic. EARS: External auditory canals clear, tympanic membranes pearly gao without erythema or effusion bilaterally. EYES: Pupils equal round and reactive to light and accommodation. Conjunctivae without injection, sclerae without icterus. Extraocular movements intact. NOSE: Patent, turbinates without inflammation or discharge. No sinus tenderness. MOUTH: Mucous membranes moist. Pharynx without erythema or exudate. Uvula midline. Airway patent. Tongue does not deviate. NECK: Supple without nuchal rigidity. No lymphadenopathy. No thyromegaly. Cervical spine is nontender. No JVD. HEART: Regular rate and rhythm LUNGS: Clear to auscultation bilaterally without wheezes, rales or rhonchi. No retractions or accessory muscle use. ABDOMEN: Positive bowel sounds x 4. Normal tympanic percussion. Soft, nontender, without masses or organomegaly. Arellano sign negative. No guarding or rebound tenderness. No CVA tenderness MUSCULOSKELETAL: No muscle atrophy, erythema, or edema noted. NEURO: Patient was alert but not oriented to person place and time. Normal sensation to light and sharp touch. No focal neurological deficits. Course Administered Medications Enoxaparin Sodium (Enoxaparin Inj 40 Mg/0.4 Ml Syr) 40 mg SQ QAM [facility] Stop: 01/25/23 08:59 Last Admin: 12/26/22 09:32 Dose: 40 mg Documented By: DEVANTE Cefepime HCl 2,000 mg/ Syringe 20 mls @ 5 mls/min IV Q8H [facility]; Protocol Stop: 12/28/22 05:59 Last Admin: 12/26/22 21:33 Dose: 5 mls/min Documented By: Admin: 12/26/22 14:56 Dose: 5 mls/min Documented By: Admin: 12/26/22 05:40 Dose: 5 mls/min Documented By: VERENAP Acetaminophen (Ofirmev) 1,000 mg in 100 mls @ 400 mls/hr IV Q8H PRN PRN Reason: Pain or Fever Stop: 12/29/22 03:30 Last Infusion: 12/26/22 21:06 Dose: 0 mls/hr Documented By: Admin: 12/26/22 19:40 Dose: 400 mls/hr Documented By: LMP Sodium Chloride (Nss 1000ml) 1,000 mls @ 150 mls/hr IV .Q6H40M [facility]ITLY[facility] Stop: 01/25/23 03:30 Last Admin: 12/26/22 23:18 Dose: 150 mls/hr Documented By: Infusion: 12/26/22 23:18 Dose: 150 mls/hr Documented By: Admin: 12/26/22 17:27 Dose: 150 mls/hr Documented By: Infusion: 12/26/22 17:27 Dose: 150 mls/hr Documented By: Admin: 12/26/22 14:56 Dose: 150 mls/hr Documented By: Infusion: 12/26/22 10:22 Dose: 150 mls/hr Documented By: Admin: 12/26/22 03:41 Dose: 150 mls/hr Documented By: VERENAP Vancomycin HCl 1,250 mg/ (Sodium Chloride) 275 mls @ 200 mls/hr IV Q12H [facility]; Protocol Stop: 12/28/22 05:59 Last Infusion: 12/26/22 21:06 Dose: 0 mls/hr Documented By: Admin: 12/26/22 17:27 Dose: 200 mls/hr Documented By: Infusion: 12/26/22 09:33 Dose: 0 mls/hr Documented By: Admin: 12/26/22 05:41 Dose: 200 mls/hr Documented By: RLP Discontinued Medications Dexamethasone Sodium Phosphate (DexamethasonePf 10 Mg/Ml Vial) 10 mg IV NOW ONE Stop: 12/25/22 21:52 Last Admin: 12/25/22 22:11 Dose: 10 mg Documented By: GIOVANY Gadobutrol (Gadobutrol 65ml Vial) 8 ml IV ONCE ONE Stop: 12/26/22 14:06 Last Admin: 12/26/22 14:05 Dose: 8 ml Documented By: NICK Sodium Chloride (Nss 1000ml) 1,000 mls @ 999 mls/hr IV .Q1H1M [facility]AITLYNN Stop: 12/25/22 23:45 Last Infusion: 12/26/22 00:21 Dose: 0 mls/hr Documented By: Admin: 12/25/22 23:20 Dose: 999 mls/hr Documented By: Infusion: 12/25/22 23:03 Dose: 999 mls/hr Documented By: Admin: 12/25/22 22:02 Dose: 999 mls/hr Documented By: GIOVANY Ceftriaxone Sodium (Rocephin) 2,000 mg in 70 mls @ 140 mls/hr IV NOW STA Stop: 12/25/22 22:19 Last Infusion: 12/26/22 00:16 Dose: 0 mls/hr Documented By: Admin: 12/25/22 23:21 Dose: 140 mls/hr Documented By: GIOVANY Vancomycin HCl 2,000 mg/ (Sodium Chloride) 540 mls @ 200 mls/hr IV NOW ONE Stop: 12/26/22 00:19 Last Admin: 12/26/22 00:10 Dose: 200 mls/hr Documented By: GIOVANY Acetaminophen (Ofirmev) 1,000 mg in 100 mls @ 400 mls/hr IV NOW STA Stop: 12/25/22 22:26 Last Infusion: 12/26/22 00:15 Dose: 0 mls/hr Documented By: Admin: 12/25/22 23:53 Dose: 400 mls/hr Documented By: GIOVANY Medical Decision Making Medical Records Attestation: I reviewed the patient's medical records. Home Medications Current Medication List: was personally reviewed by me Laboratory Data Attestation: I reviewed the patient's lab results. 12/25/22 21:55 12/25/22 21:55 Lab Results 12/25/22 12/25/22 12/25/22 Range/Units 21:31 21:55 21:55 WBC 18.01 H (4.8-10.8) K/ul RBC 4.74 (4.70-6.10) M/uL Hgb 13.9 L (14.0-18.0) g/dl Hct 40.8 L (42.0-52.0) % MCV 86.1 (80.0-100.0) fL MCH 29.3 (25.0-34.0) pg MCHC 34.1 (32.0-36.0) g/dL RDW Std Deviation 38.7 (36.4-46.3) fL RDW Coeff of Rafal 12.3 (11.5-14.5) % Plt Count 380 (130-400) K/uL MPV 10.6 (9.4-12.4) fL Immature Gran % (Auto) 0.6 % Neut % (Auto) 86.5 % Lymph % (Auto) 5.8 % [place] % (Auto) 5.5 % Eos % (Auto) 1.3 % Baso % (Auto) 0.3 % Neut # (Auto) 15.60 H (1.40-6.50) K/uL Lymph # (Auto) 1.04 L (1.2-3.4) K/uL [place] # (Auto) 0.99 H (0.11-0.59) K/uL Eos # (Auto) 0.23 (0-0.50) K/uL Baso # (Auto) 0.05 (0-0.2) K/uL Immature Gran # (Auto) 0.10 (0.01-0.20) K/uL ESR (0-15) mm/hr Sodium 140 (136-145) mmol/L Potassium 3.9 (3.5-5.1) mmol/L Chloride 103 (98-107) mmol/L Carbon Dioxide 28 (21-32) mmol/L Anion Gap 9 (3-11) BUN 21 (6-23) mg/dl Creatinine 0.98 (0.6-1.4) mg/dl Est Cr Clr Drug Dosing 97.2 ml/min Est GFR ( Amer) 109.0 ml/min Est GFR (Non-Af Amer) 94.1 ml/min BUN/Creatinine Ratio 21.4 H (10-20) Glucose 102 H (70-99(Fasting)) mg/dl Lactate (0.4-2.0) mmol/L Calcium 10.0 (8.5-10.1) mg/dl Magnesium 1.9 (1.7-2.4) mg/dl Total Bilirubin 1.1 H (0.2-1.0) mg/dl Direct Bilirubin 0.2 (0-0.2) mg/dl AST 60 H (13-39) U/L ALT 56 H (7-52) U/L Alkaline Phosphatase 78 (34-104) U/L Ammonia (18-72) umol/L Total Creatine Kinase 857 H (30-223) U/L Troponin I High Sens 4.4 (0-20) pg/ml C-Reactive Protein (0-0.5) mg/dl Total Protein 7.4 (6.0-8.3) gm/dl Albumin 4.6 (3.4-5.0) gm/dl Procalcitonin (0-0.5) ng/ml Ethyl Alcohol mg/dL (<10.0) mg/dl SARS-CoV-2 (PCR) NEGATIVE (Negative) Influenza Type A (PCR) Negative (Neg) Influenza Type B (PCR) Negative (Neg) RSV (RT-PCR) Negative (Neg) 12/25/22 12/25/22 12/25/22 Range/Units 21:55 21:55 21:55 WBC (4.8-10.8) K/ul RBC (4.70-6.10) M/uL Hgb (14.0-18.0) g/dl Hct (42.0-52.0) % MCV (80.0-100.0) fL MCH (25.0-34.0) pg MCHC (32.0-36.0) g/dL RDW Std Deviation (36.4-46.3) fL RDW Coeff of Rafal (11.5-14.5) % Plt Count (130-400) K/uL MPV (9.4-12.4) fL Immature Gran % (Auto) % Neut % (Auto) % Lymph % (Auto) % [place] % (Auto) % Eos % (Auto) % Baso % (Auto) % Neut # (Auto) (1.40-6.50) K/uL Lymph # (Auto) (1.2-3.4) K/uL [place] # (Auto) (0.11-0.59) K/uL Eos # (Auto) (0-0.50) K/uL Baso # (Auto) (0-0.2) K/uL Immature Gran # (Auto) (0.01-0.20) K/uL ESR (0-15) mm/hr Sodium (136-145) mmol/L Potassium (3.5-5.1) mmol/L Chloride (98-107) mmol/L Carbon Dioxide (21-32) mmol/L Anion Gap (3-11) BUN (6-23) mg/dl Creatinine (0.6-1.4) mg/dl Est Cr Clr Drug Dosing ml/min Est GFR ( Amer) ml/min Est GFR (Non-Af Amer) ml/min BUN/Creatinine Ratio (10-20) Glucose (70-99(Fasting)) mg/dl Lactate 1.7 (0.4-2.0) mmol/L Calcium (8.5-10.1) mg/dl Magnesium (1.7-2.4) mg/dl Total Bilirubin (0.2-1.0) mg/dl Direct Bilirubin (0-0.2) mg/dl AST (13-39) U/L ALT (7-52) U/L Alkaline Phosphatase (34-104) U/L Ammonia (18-72) umol/L Total Creatine Kinase (30-223) U/L Troponin I High Sens (0-20) pg/ml C-Reactive Protein (0-0.5) mg/dl Total Protein (6.0-8.3) gm/dl Albumin (3.4-5.0) gm/dl Procalcitonin 0.16 (0-0.5) ng/ml Ethyl Alcohol mg/dL < 10.0 (<10.0) mg/dl SARS-CoV-2 (PCR) (Negative) Influenza Type A (PCR) (Neg) Influenza Type B (PCR) (Neg) RSV (RT-PCR) (Neg) 12/25/22 12/25/22 12/25/22 Range/Units 21:55 22:54 22:54 WBC (4.8-10.8) K/ul RBC (4.70-6.10) M/uL Hgb (14.0-18.0) g/dl Hct (42.0-52.0) % MCV (80.0-100.0) fL MCH (25.0-34.0) pg MCHC (32.0-36.0) g/dL RDW Std Deviation (36.4-46.3) fL RDW Coeff of Rafal (11.5-14.5) % Plt Count (130-400) K/uL MPV (9.4-12.4) fL Immature Gran % (Auto) % Neut % (Auto) % Lymph % (Auto) % [place] % (Auto) % Eos % (Auto) % Baso % (Auto) % Neut # (Auto) (1.40-6.50) K/uL Lymph # (Auto) (1.2-3.4) K/uL [place] # (Auto) (0.11-0.59) K/uL Eos # (Auto) (0-0.50) K/uL Baso # (Auto) (0-0.2) K/uL Immature Gran # (Auto) (0.01-0.20) K/uL ESR 21 H (0-15) mm/hr Sodium (136-145) mmol/L Potassium (3.5-5.1) mmol/L Chloride (98-107) mmol/L Carbon Dioxide (21-32) mmol/L Anion Gap (3-11) BUN (6-23) mg/dl Creatinine (0.6-1.4) mg/dl Est Cr Clr Drug Dosing ml/min Est GFR ( Amer) ml/min Est GFR (Non-Af Amer) ml/min BUN/Creatinine Ratio (10-20) Glucose (70-99(Fasting)) mg/dl Lactate (0.4-2.0) mmol/L Calcium (8.5-10.1) mg/dl Magnesium (1.7-2.4) mg/dl Total Bilirubin (0.2-1.0) mg/dl Direct Bilirubin (0-0.2) mg/dl AST (13-39) U/L ALT (7-52) U/L Alkaline Phosphatase (34-104) U/L Ammonia 27.0 (18-72) umol/L Total Creatine Kinase (30-223) U/L Troponin I High Sens (0-20) pg/ml C-Reactive Protein 2.95 H (0-0.5) mg/dl Total Protein (6.0-8.3) gm/dl Albumin (3.4-5.0) gm/dl Procalcitonin (0-0.5) ng/ml Ethyl Alcohol mg/dL (<10.0) mg/dl SARS-CoV-2 (PCR) (Negative) Influenza Type A (PCR) (Neg) Influenza Type B (PCR) (Neg) RSV (RT-PCR) (Neg) Imaging Data Attestation: I personally reviewed and interpreted this imaging study as follows: Radiologist's Impression: Brain MRI 12/26/22 00:00 Brain MRI WITH AND WITHOUT CONTRAST HISTORY: Altered mental status, fever, polysubstance abuse, BROOKS, back pain TECHNIQUE: Multiplanar multisequence MRI of the brain was performed both before and after the intravenous administration of contrast. COMPARISON STUDY: Brain MRI 07/26/2016. Head CT 12/25/2022. FINDINGS: There are no areas of restricted diffusion to suggest acute infarction. The midline structures are intact. The paranasal sinuses are clear. The mastoid air cells are clear. The ventricles and sulci are within normal limits for age. There is no mass, hematoma, midline shift. The major vascular flow-voids at the skull base are well maintained. Postcontrast sequences show no areas of abnormal enhancement. IMPRESSION: No acute intracranial abnormality. ACT 112: Negative or not required by law. Electronically signed by: Dominic Ayala M.D. 12/26/2022 2:29 PM Cervical Spine MRI 12/26/22 00:00 CLINICAL HISTORY: ams, fever, polysubstance abuse, BROOKS, back pain TECHNIQUE: MRI of the cervical spine is performed utilizing various T1 and T2 sequences in the axial and sagittal planes. IV contrast was administered for this examination. Comparison: None available at the time of this dictation. FINDINGS: The alignment is anatomical. Disks are normal in height and signal. C2-C3: Unremarkable. C3-C4: Unremarkable. C4-C5: Unremarkable. C5-C6: Unremarkable. C6-C7: Unremarkable. C7-T1: Unremarkable. The spinal ligaments are intact, without evidence of disruption or abnormal signal intensity. The spinal cord is normal in signal intensity and there is no evidence of cord contusion. There is no evidence of an extradural, intradural, extramedullary or intramedullary lesion. Visualized soft tissues are normal. Visualized brain parenchyma is normal. IMPRESSION: No evidence of cord compression or significant neuroforaminal narrowing. ACT 112: Negative or not required by law. Electronically signed by: Brody Mancia M.D. 12/26/2022 2:43 PM Lumbar Spine MRI 12/26/22 00:00 MRI OF THE LUMBAR SPINE COMBO CLINICAL HISTORY: Change in mental status. Back pain. Fever. Substance abuse. COMPARISON STUDY: CT scan of the lumbar spine dated 10/24/2009. TECHNIQUE: MRI of the lumbar spine is performed utilizing various T1 and T2- weighted sequences in the axial and sagittal planes. Contrast enhanced sequences were acquired following the IV administration of 8 cc of Gadavist. FINDINGS: Lumbar spine: Vertebral body height and alignment are maintained throughout the lumbar spine. Normal marrow signal intensity is preserved about the visualized bony structures. The transverse and spinous processes appear intact. There is no evidence of spondylolysis. No destructive bony lesion or erosive changes seen. Intervertebral discs: There is moderate degenerative disc desiccation and loss of height at L1-L2, L2-L3, and L5-S1. There is no fluid within the disc spaces. Spinal cord and central canal: The visualized spinal cord is normal in morphology and signal intensity. The conus medullaris terminates at the level of L1. The nerve roots of the cauda equina are normal in morphology. There is no e vidence of epidural fluid collection. L1-L2: There is minimal posterior disc bulge and annular fissure. The central canal and neural foramina are patent. L2-L3: There is normal posterior disc bulge. The central canal and neural foramina are patent. L3-L4: Unremarkable. L4-L5: Unremarkable. L5-S1: There is broad-based posterior disc bulge and annular fissure. No acquir ed compromise of the central canal is seen. Lateral disc bulges contribute to mild bilateral subarticular stenosis, left greater than right. This may abut the exiting left L5 nerve root. There is no significant neural foraminal narrowing. Sacrum: The visualized sacrum is normal in morphology and signal intensity. Soft tissues: There is marked bladder distention. The paraspinous soft tissues are normal in appearance. The iliopsoas musculature is within normal limits. The visualized retroperitoneal structures are grossly unremarkable but incompletely assessed. IMPRESSION: 1. No acute bony abnormality is seen involving the lumbar spine. Specifically, there is no MRI evidence of discitis/osteomyelitis. 2. Moderate degenerative disc disease as above. See discussion. 3. There is no acquired compromise of the central canal or high-grade neural foraminal narrowing seen throughout the upper lumbar region. 4. Marked bladder distention. 5. Additional findings as above. Dictated: 12/26/2022 2:26 PM Transcribed: 12/26/2022 2:43 PM Tam[facility] [id number] [email or web address] Electronically signed by: Mateo Callejas M.D. 12/26/2022 2:58 PM Thoracic Spine MRI 12/26/22 00:00 MRI OF THE THORACIC SPINE WITH AND WITHOUT CONTRAST CLINICAL HISTORY: Altered mental status, fever, polysubstance abuse, BROOKS, back pain COMPARISON: Thoracic spine radiographs February 23, 2019. TECHNIQUE: Utilizing a 1.5 Marisabel magnet and dedicated coil, multiplanar, multiecho imaging of the thoracic spine was performed before and after the int ravenous administration of 8 cc. FINDINGS: Alignment of the thoracic spine is anatomic. Vertebral body heights are maintained. There is no marrow edema or marrow replacement. Thoracic cord signal and caliber are normal. There is no intracanalicular mass or fluid collection. Disc spaces are preserved. There is no evidence for discitis or osteomyelitis within the thoracic spine. Paravertebral soft tissues are unremarkable. The central canal and neural foramen are patent. Dependent airspace opacities within the lungs are suboptimally assessed by MRI but favor atelectasis. IMPRESSION: Unremarkable MRI of the thoracic spine. ACT 112: Negative or not required by law. Electronically signed by: Georges Jamil M.D. 12/26/2022 2:38 PM [facility] Narrative Prior records/ancillary studies reviewed. Triage Nursing notes reviewed. Additional history obtained from nurse. The patient's history was concerning for altered mental status he was febrile w ith a history of polysubstance abuse and lives on the streets. Differential diagnosis: Etiologies such as sepsis, UTI, pneumonia, metabolic, electrolyte abnormalities, cardiac sources, intracerebral event, toxicologic, neurologic, as well as others were entertained. Physical examination: As above. Pertinent findings were altered. Vital signs reviewed and revealed febrile and tachycardic. ER treatment provided: IV fluid resuscitation with Normal saline solution IV fluids, vancomycin, Rocephin Decadron An order was placed for continuous cardiac monitoring. The monitor shows a rate of 6150 with a sinus rhythm per my interpretation. On reassessment the patient vital signs improved. Diagnostics interpretation by me: ECG: Ordered for altered mental status EKG: Normal sinus, Q waves in inferior leads, poor baseline, no acute ST-T wave changes, rate of 105. Impression sinus tachycardia poor baseline interpreted by myself I think arrhythmia is unlikely. EKG shows normal sinus rhythm with no interval abnormalities such as QT prolongation or WPW. There are no findings to suggest Brugada syndrome. Cardiac monitoring in the emergency department reveals no tachycardic or bradycardic dysrhythmia. Hypertrophic cardiomyopathy was considered but there are no clear historical elements pointing toward this. EKG is not suggestive. The QRS voltage is not extremely large and there are no suggestive Q waves. The labs Independently Interpreted by myself revealed leukocytosis on CBC. Elevated LFTs and hepatitis panel was. Elevates inflammatory markers. Serum Lactate measurement was negative Blood and urine cultures are pending. Imaging studies: Chest xray revealed with no acute consolidation, pneumothorax or free air per my independent interpretation CT HEAD: No ICH, mass effect or edema. No evidence of acute cortical stroke. Visualized sinuses and mastoid air cells are clear. Radiologist: Brody Garcia MD MRIs were ordered but MRI screen cannot be accomplished at this time secondary to patient being altered and this will be delayed to the morning per MRI and nursing Consultation: A consultation was placed with the hospitalist. The case was discussed and diagnostics were reviewed. The patient was evaluated in the ER for further treatment. Exam and history seem consistent with altered mental status with concerns for sepsis. Patient was not answering questions. He is mumbling. He was started on antibiotics. Imaging was ordered. MRIs were ordered for possible abscess. instrumentation engineering technician states patient has been more awake before he can go to MRI. Labs and diagnostics were independent interpreted by myself. Medicine was consulted the case was discussed. Patient will be admitted to the medical team. He has a history of polysubstance abuse. He is homeless. He was just here for metabolic encephalopathy. Ammonia level was negative. Blood cultures are pending. The chart was completed utilizing [employer] voice recognition software. Grammatical errors, random word insertions, pronoun errors, and incomplete sentences are an occassional consequence of this system due to software limita tions, ambient noise, and hardware issues. Any formal questions or concerns about the content, text, or information contained within the body of this dictation should be directly addressed to the physician nurse practitioner physicians assistant for clarification. Attending Attestation: Pura Menezes MD independently saw and evaluated this patient and agree with history and physical is otherwise documented by the physician nurse practitioner physicians assistant. See their note for full details. Patient arousable for me in bed in no distress but answering only some questions and drowsy. Only reports slight rash and red georgette with pain on right calf. Small 8mm macular red georgette without fluctuance. Febrile with wbc count increased. Unclear possible source and covered with abx. Not in condition for MRI given reported hx to exclude infection spine and not clearly meningitic. In current state not able to LP but will admit on abx. Impression & Plan Polysubstance dependence, AMS (altered mental status), Sepsis, Elevated liver enzymes Discharge Plan Visit Data Chief Complaint: Illness Stated Complaint: UNKNOWN DRUG ABUSE ED Provider: Sameer Menezes ED Midlevel Provider: Cookie Chacon Discharge Problem: Polysubstance dependence, AMS (altered mental status), Sepsis, Elevated liver enzymes Patient Disposition: Admitted As Inpatient Condition: Fair Discharge Instructions Interventions: ED Discharge Assessment Last Done: 12/26/22 01:29 AMS (altered mental status) Qualifiers: Altered mental status type: unspecified Qualified Code(s): R41.82 - Altered mental status, unspecified
[2022-12-25 22:49] LABS: Basophils # (auto) 0.05 K/uL (0-0.2); Basophils % (auto) 0.3 %; Eosinophils # (auto) 0.23 K/uL (0-0.50); Eosinophils % (auto) 1.3 %; Hematocrit (blood only) 40.8 % (42.0-52.0); Hemoglobin 13.9 g/dl (14.0-18.0); Immature Granulocytes % (auto) 0.6 %; Lymphocytes # (auto) 1.04 K/uL (1.2-3.4); Lymphocytes % (auto) 5.8 %; Mean Corpuscular Hemoglobin 29.3 pg (25.0-34.0); Mean Corpuscular Hgb Conc 34.1 g/dL (32.0-36.0); Mean Corpuscular Volume 86.1 fL (80.0-100.0); Mean Platelet Volume 10.6 fL (9.4-12.4); Monocytes # (auto) 0.99 K/uL (0.11-0.59); Monocytes % (auto) 5.5 %; Neutrophils % (auto) 86.5 %; Platelet Count 380 K/uL (130-400); RDW Coefficient of Variation 12.3 % (11.5-14.5); RDW Standard Deviation 38.7 fL (36.4-46.3); Red Blood Count 4.74 M/uL (4.70-6.10); White Blood Count 18.01 K/ul (4.8-10.8)
[2022-12-25 23:07] LABS: Albumin Level 4.6 gm/dl (3.4-5.0); BUN Creatinine Ratio 21.4 (10-20); Bilirubin Direct 0.2 mg/dl (0-0.2); Bilirubin,Total 1.1 mg/dl (0.2-1.0); Creatinine Clr Calc Pharmacy 97.2 ml/min; Est GFR (Non-African American) 94.1 ml/min; Magnesium 1.9 mg/dl (1.7-2.4); Potassium 3.9 mmol/L (3.5-5.1); Total Protein 7.4 gm/dl (6.0-8.3)
[2022-12-25 23:13] LABS: Troponin I High Sensitivity 4.4 pg/ml (0-20)
[2022-12-26 00:53] LABS: Influenza A virus by PCR Negative (Neg); Influenza B virus by PCR Negative (Neg); RSV by PCR Negative (Neg); SARS CoV2 RNA(COVID-19) Ceph NEGATIVE (Negative)
[2022-12-26 01:05] LABS: Appearance Urine Clear (Clear); Bilirubin Urine Negative (Negative); Blood Urine Negative (Negative); Color Urine Yellow; Glucose Urine UA Negative (Negative); Ketones Urine 1+ (Negative); Leukocyte Esterase Urine Negative (Negative); Nitrite Urine Negative (Negative); Protein Urine Negative (Negative); Specific Gravity Urine 1.014 (1.000-1.030); Urobilinogen Urine Negative (Negative); pH Urine 6.5 (4.5-7.5)
[2022-12-26 01:32] LABS: Amphetamines+Metham, Urine Pos (Neg); Barbiturates, Urine Neg (Neg); Benzodiazepine, Urine Neg (Neg); Cocaine, Urine Neg (Neg); MDMA (Ecstacy), Urine Neg (Neg); Methadone, Urine Neg (Neg); Opiate, Urine Neg (Neg); Phencyclidine, Urine Neg (Neg)
[2022-12-26] MEDS ORDERED: ACETAMINOPHEN 1,000 MG/100 ML VIAL IV PRN (03:31)
[2022-12-26] MEDS ORDERED: NITROGLYCERIN SL 0.4 MG/TAB TAB SL PRN (03:31)
[2022-12-26] MEDS: SODIUM CHLORIDE 0.9% 1000ML 1,000 ML IV SCH ×4 (03:41→23:18)
--- NOTE | 2022-12-26 04:31 | History and Physical Report ---
DATE OF ADMISSION: 12/25/2022 CHIEF COMPLAINT: Altered mental status, fever. HISTORY OF PRESENT ILLNESS: This is a 42-year-old male, he is homeless, was brought in because of confusion, altered mental status. The patient recently was admitted here in the hospital on 12/19/2022 and discharged on 12/22/2022. At that time also he was admitted for substance abuse, drug-induced psychosis, encephalopathy, thought to be possible diagnosis of Schizophrenia. [facility] time confusion, was thought from hypothermia, substance abuse, and mild rhabdomyolysis. At that time, his toxicology screen was positive for methamphetamine and THC. At that time, he admitted using methamphetamine and cocaine, but unclear when was last used and also he admitted at that time to smoking cigarettes and also occasional alcohol. Currently, the patient is very drowsy, opens eyes on calling, could tell his name, but answering randomly and could not get any history from the patient. He spiked a temperature of 38.1 in the ER, his pulse is 101, blood pressure 115/53, 94% oxygen on room air. WBC 18,000. C-reactive protein 2.9, total creatine kinase 857. Procalcitonin 0.1. Ethyl alcohol less than 10. His hepatitis panel, COVID, influenza and RSV tests are pending. CT of the head, preliminary report, no acute findings. ER ordered MRI of the brain and also MRI of his total spine, which are not done yet. Was empirically given vancomycin and Rocephin. ALLERGIES: BEE VENOM, ASPIRIN, CAT DANDER, GRASS, POLLEN. PAST MEDICAL HISTORY: As mentioned above. PAST SURGICAL HISTORY: Seems none. FAMILY HISTORY: Not known at this time. SOCIAL HISTORY: He is homeless. Smokes cigarettes. Alcohol occasional. Ongoing drug use. MEDICATIONS: None. REVIEW OF SYSTEMS: Unobtainable at this time because the patient is very drowsy and confused. PHYSICAL EXAMINATION: GENERAL: The patient is drowsy, but arousable and could tell his name. VITAL SIGNS: Temperature 38.1, pulse 101, respiratory rate 20, blood pressure 115/53, oxygen 94% on room air. HEENT: Pupils sluggish to react to light. No facial trauma seen. No facial droop seen. NECK: No neck masses seen. CARDIOVASCULAR: S1 and S2 heard. Tachycardia. No murmurs. RESPIRATORY SYSTEM: Normal AP diameter. No accessory muscle use. No wheezing or crackles. ABDOMEN: Soft, bowel sounds present, nontender, no distention. CENTRAL NERVOUS SYSTEM: Drowsy, arousable, only could tell his name, not obeying any commands. No obvious facial droop seen. Speech seems to be okay when he talks. EXTREMITIES: No edema, no erythema. LABORATORY DATA: WBC 18, hemoglobin 13.9, hematocrit 40.8, platelets 380. ESR 21. Sodium 140, potassium 3.9, chloride 103, CO2 of 28, BUN 21, creatinine 0.9, serum glucose 102. Lactate 1.7, calcium 10, magnesium 1.9, total bilirubin 1.1, direct bilirubin 0.2, AST 60, ALT 56, alkaline phosphatase 78. Ammonia 27. Total creatinine kinase 857. Troponin I high sensitivity 4.4. C-reactive protein 2.95. Procalcitonin 0.1. Ethyl alcohol less than 10. IMAGING DATA: CT of the head preliminary report unremarkable. Chest x-ray, no acute findings seen. EKG: Sinus tachycardia at a rate of 105, nonspecific ST abnormalities. ASSESSMENT AND PLAN: This is a 42-year-old male who presents with altered mental status. 1. Altered mental status, fever spike. The patient has history of drug abuse, encephalopathy, could be secondary to infection, could be secondary to also drug use. We will follow the cultures. We will follow hepatitis panel, COVID test and also, ER ordered MRI scan of the head and also spine. We will follow the results. In the ER, he received IV vancomycin and IV Rocephin. We will continue with IV vancomycin and IV Rocephin. Closely monitor in the tele floor. His lactic acid is okay. Ammonia levels ok. Hemodynamics are okay at this time. Continue with fluids of normal saline 125 mL per hour. Keep him n.p.o. for now. 2. Elevated liver function tests. We will follow the repeat in the a.m. We will follow hepatitis panel. Could be from ongoing infection. 3. Mild rhabdomyolysis. CK 857. We will place him on normal saline 150 mL per hour. Follow the repeat labs in the a.m. 4. History of drug use with positive drug screen. Needs counseling. 5. Tobacco use disorder. We will student success counselor when the patient is more awake. 6. Deep venous thrombosis prophylaxis: Will place him on Lovenox subcutaneously. Level 1 FULL CODE. DISPOSITION: Admit to tele floor. Discharge plan to be determined. Job ID: [id number] [facility]ITALAbisai
[2022-12-26] MEDS: CEFEPIME 2,000 MG in SYRINGE 0 ML IV SCH ×3 (05:40→21:33)
[2022-12-26] MEDS: VANCOMYCIN HCL 1,250 MG in SODIUM CHLORIDE 0.9% 250 ML IV SCH ×2 (05:41→17:27)
[2022-12-26 06:43] LABS: Basophils # (auto) 0.03 K/uL (0-0.2); Basophils % (auto) 0.2 %; Hematocrit (blood only) 36.6 % (42.0-52.0); Hemoglobin 12.5 g/dl (14.0-18.0); Immature Granulocytes % (auto) 0.7 %; Lymphocytes # (auto) 1.11 K/uL (1.2-3.4); Mean Corpuscular Hemoglobin 29.8 pg (25.0-34.0); Mean Corpuscular Hgb Conc 34.2 g/dL (32.0-36.0); Mean Corpuscular Volume 87.4 fL (80.0-100.0); Mean Platelet Volume 10.6 fL (9.4-12.4); Monocytes # (auto) 0.27 K/uL (0.11-0.59); Neutrophils # (auto) 12.28 K/uL (1.40-6.50); Neutrophils % (auto) 89.1 %; Platelet Count 349 K/uL (130-400); RDW Coefficient of Variation 12.4 % (11.5-14.5); RDW Standard Deviation 39.5 fL (36.4-46.3); Red Blood Count 4.19 M/uL (4.70-6.10); White Blood Count 13.79 K/ul (4.8-10.8)
[2022-12-26 06:47] LABS: BUN Creatinine Ratio 17.6 (10-20); Calcium 8.9 mg/dl (8.5-10.1); Creatinine Clr Calc Pharmacy 126.6 ml/min; Est GFR (African American) 123.7 ml/min; Est GFR (Non-African American) 106.7 ml/min; Magnesium 2.1 mg/dl (1.7-2.4); Potassium 4.3 mmol/L (3.5-5.1)
--- NOTE | 2022-12-26 07:45 | Pharmacy Report ---
Pharmacy Vanc AUC Short Note - Date of Service December 26, 2022 - Assessment & Plan Assessment 42 year old M started on vancomycin and cefepime. Recently admitted 12/19-12/22 for substance abuse, psychosis, encephalopathy. Patient with confusion, altered mental status, fever on admission. Blood cultures currently pending. Plan Vancomycin * AUC/MYRON is the preferred PK/PD target for vancomycin * AUC guided dosing is effective and associated with decreased risk of nephrotoxicity compared to traditional trough targets * Given loading dose of vancomycin 2000 mg x 1 overnight and was started on vancomycin 1250 mg iv q 12 hrs * This dosing is estimated to produce a trough level of ~16 mcg/ml and is predicted to achieve an AUC/MYRON of 400-600 mg/L.hr and may be associated with a 11 % risk of nephrotoxicity * Plan to continue current vancomycin regimen - will order vancomycin level if plan is to continue >48 hours Pharmacy will continue to follow and will adjust dose/frequency as necessary. Thank you.
--- NOTE | 2022-12-26 08:17 | XRay Report ---
XR chest 1V portable CLINICAL HISTORY: Sepsis. COMPARISON STUDY: Chest radiograph December 19, 2022. FINDINGS: Lung volumes are normal. Lungs are clear. There is no pneumothorax or pleural effusion. Car diac size is normal. Mediastinal contours are normal. There is no evidence for pulmonary edema. IMPRESSION: No acute cardiopulmonary findings. ACT 112: Negative or not required by law. Electronically signed by: Georges Jamil M.D. 12/26/2022 8:15 AM
--- NOTE | 2022-12-26 08:27 | CT Scan Report ---
CT head/brain wo con CLINICAL HISTORY: ams, fever, polysubstance Technique: Contiguous axial CT images of the head were acquired from the base of the skull to the josias avril without intravenous contrast administration. Images were viewed in brain, subdural and bone windo ws. Automated dose lowering techniques and/or adjustment according to patient size were utilized for this exam. Comparison: Comparison is made to CT head 12/19/2012 Findings: The ventricles, basal cisterns, and cerebral sulci are normal. There is no acute intracranial hemorrh age or evidence of acute territorial infarction. Neither mass effect, shift of the midline structures , nor abnormal extra-axial fluid collections are shown. Imaged portions of the paranasal sinuses and mastoid air cells are clear. The orbits appear normal. There are no acute fractures of the calvaria or scalp swelling. Impression: No acute intracranial hemorrhage, no evidence of acute territorial infarction or other acute intracra nial disease process. ACT 112: Negative or not required by law. Electronically signed by: Brody Mancia M.D. 12/26/2022 8:26 AM
[2022-12-26] MEDS: ENOXAPARIN INJ 40 MG/0.4 ML SYR SQ SCH (09:32)
--- NOTE | 2022-12-26 10:26 | XRay Report ---
XR KUB pre MRI CLINICAL HISTORY: prior to MRI COMPARISON STUDY: CT of the abdomen and pelvis April 17, 2021. FINDINGS: There is no contraindication to MRI within the abdomen or pelvis. Bowel gas pattern is norm al. There is a moderate amount of stool. IMPRESSION: No contraindication to MRI within the abdomen or pelvis. ACT 112: Negative or not required by law. Electronically signed by: Georges Jamil M.D. 12/26/2022 10:24 AM
--- NOTE | 2022-12-26 11:24 | Electrocardiogram Report ---
Test Reason : Blood Pressure : / mmHG Vent. Rate : 105 BPM Atrial Rate : 105 BPM P-R Int : 142 ms QRS Dur : 086 ms QT Int : 330 ms P-R-T Axes : 043 065 047 degrees QTc Int : 436 ms Sinus tachycardia Nonspecific ST abnormality Abnormal ECG When compared with ECG of 19-DEC-2022 06:55, QT has shortened Confirmed by Han Miller ([id number]) on 12/26/2022 11:24:00 AM Referred By: REFERRED SELF Confirmed By:Avni Miller
[2022-12-26] MEDS ORDERED: GADOBUTROL 65ML VIAL IV ONE (14:05)
--- NOTE | 2022-12-26 14:31 | Magnetic Resonance Report ---
Brain MRI WITH AND WITHOUT CONTRAST HISTORY: Altered mental status, fever, polysubstance abuse, BROOKS, back pain TECHNIQUE: Multiplanar multisequence MRI of the brain was performed both before and after the intrave nous administration of contrast. COMPARISON STUDY: Brain MRI 07/26/2016. Head CT 12/25/2022. FINDINGS: There are no areas of restricted diffusion to suggest acute infarction. The midline structu res are intact. The paranasal sinuses are clear. The mastoid air cells are clear. The ventricles and sulci are within normal limits for age. There is no mass, hematoma, midline shift. The major vascular flow-voids at the skull base are well maintained. Postcontrast sequences show no areas of abnormal e nhancement. IMPRESSION: No acute intracranial abnormality. ACT 112: Negative or not required by law. Electronically signed by: Dominic Ayala M.D. 12/26/2022 2:29 PM
--- NOTE | 2022-12-26 14:40 | Magnetic Resonance Report ---
MRI OF THE THORACIC SPINE WITH AND WITHOUT CONTRAST CLINICAL HISTORY: Altered mental status, fever, polysubstance abuse, BROOKS, back pain COMPARISON: Thoracic spine radiographs February 23, 2019. TECHNIQUE: Utilizing a 1.5 Marisabel magnet and dedicated coil, multiplanar, multiecho imaging of the th oracic spine was performed before and after the intravenous administration of 8 cc. FINDINGS: Alignment of the thoracic spine is anatomic. Vertebral body heights are maintained. There i s no marrow edema or marrow replacement. Thoracic cord signal and caliber are normal. There is no int racanalicular mass or fluid collection. Disc spaces are preserved. There is no evidence for discitis or osteomyelitis within the thoracic spine. Paravertebral soft tissues are unremarkable. The central canal and neural foramen are patent. Dependent airspace opacities within the lungs are suboptimally a ssessed by MRI but favor atelectasis. IMPRESSION: Unremarkable MRI of the thoracic spine. ACT 112: Negative or not required by law. Electronically signed by: Georges Jamil M.D. 12/26/2022 2:38 PM
--- NOTE | 2022-12-26 14:44 | Magnetic Resonance Report ---
CLINICAL HISTORY: ams, fever, polysubstance abuse, BROOKS, back pain TECHNIQUE: MRI of the cervical spine is performed utilizing various T1 and T2 sequences in the axial and sagittal planes. IV contrast was administered for this examination. Comparison: None available at the time of this dictation. FINDINGS: The alignment is anatomical. Disks are normal in height and signal. C2-C3: Unremarkable. C3-C4: Unremarkable. C4-C5: Unremarkable. C5-C6: Unremarkable. C6-C7: Unremarkable. C7-T1: Unremarkable. The spinal ligaments are intact, without evidence of disruption or abnormal signal intensity. The spi nal cord is normal in signal intensity and there is no evidence of cord contusion. There is no eviden ce of an extradural, intradural, extramedullary or intramedullary lesion. Visualized soft tissues are normal. Visualized brain parenchyma is normal. IMPRESSION: No evidence of cord compression or significant neuroforaminal narrowing. ACT 112: Negative or not required by law. Electronically signed by: Brody Mancia M.D. 12/26/2022 2:43 PM
--- NOTE | 2022-12-26 15:00 | Magnetic Resonance Report ---
MRI OF THE LUMBAR SPINE COMBO CLINICAL HISTORY: Change in mental status. Back pain. Fever. Substance abuse. COMPARISON STUDY: CT scan of the lumbar spine dated 10/24/2009. TECHNIQUE: MRI of the lumbar spine is performed utilizing various T1 and T2-weighted sequences in the axial and sagittal planes. Contrast enhanced sequences were acquired following the IV administration of 8 cc of Gadavist. FINDINGS: Lumbar spine: Vertebral body height and alignment are maintained throughout the lumbar spine. Normal marrow signal intensity is preserved about the visualized bony structures. The transverse and spinous processes appear intact. There is no evidence of spondylolysis. No destructive bony lesion or erosiv e changes seen. Intervertebral discs: There is moderate degenerative disc desiccation and loss of height at L1-L2, L2 -L3, and L5-S1. There is no fluid within the disc spaces. Spinal cord and central canal: The visualized spinal cord is normal in morphology and signal intensit y. The conus medullaris terminates at the level of L1. The nerve roots of the cauda equina are normal in morphology. There is no evidence of epidural fluid collection. L1-L2: There is minimal posterior disc bulge and annular fissure. The central canal and neural forami na are patent. L2-L3: There is normal posterior disc bulge. The central canal and neural foramina are patent. L3-L4: Unremarkable. L4-L5: Unremarkable. L5-S1: There is broad-based posterior disc bulge and annular fissure. No acquired compromise of the c entral canal is seen. Lateral disc bulges contribute to mild bilateral subarticular stenosis, left gr eater than right. This may abut the exiting left L5 nerve root. There is no significant neural forami nal narrowing. Sacrum: The visualized sacrum is normal in morphology and signal intensity. Soft tissues: There is marked bladder distention. The paraspinous soft tissues are normal in appearan ce. The iliopsoas musculature is within normal limits. The visualized retroperitoneal structures are grossly unremarkable but incompletely assessed. IMPRESSION: 1. No acute bony abnormality is seen involving the lumbar spine. Specifically, there is no MRI eviden ce of discitis/osteomyelitis. 2. Moderate degenerative disc disease as above. See discussion. 3. There is no acquired compromise of the central canal or high-grade neural foraminal narrowing seen throughout the upper lumbar region. 4. Marked bladder distention. 5. Additional findings as above. Dictated: 12/26/2022 2:26 PM Transcribed: 12/26/2022 2:43 PM Tamiko [id number] [email or web address] Electronically signed by: Mateo Callejas M.D. 12/26/2022 2:58 PM
--- NOTE | 2022-12-26 19:29 | Communication Note ---
Date of Service: December 26, 2022 Addendum for H and P. Correction of date. H and P done on 12/26/22. Thank you.
[2022-12-27] MEDS: CEFEPIME 2,000 MG in SYRINGE 0 ML IV SCH ×3 (05:23→21:20)
[2022-12-27] MEDS: SODIUM CHLORIDE 0.9% 1000ML 1,000 ML IV SCH ×2 (05:29→14:15)
[2022-12-27] MEDS: VANCOMYCIN HCL 1,250 MG in SODIUM CHLORIDE 0.9% 250 ML IV SCH ×2 (05:34→18:43)
[2022-12-27 06:34] LABS: Hematocrit (blood only) 33.8 % (42.0-52.0); Hemoglobin 11.4 g/dl (14.0-18.0); Mean Corpuscular Hemoglobin 29.5 pg (25.0-34.0); Mean Corpuscular Hgb Conc 33.7 g/dL (32.0-36.0); Mean Corpuscular Volume 87.3 fL (80.0-100.0); Mean Platelet Volume 10.7 fL (9.4-12.4); Platelet Count 316 K/uL (130-400); RDW Coefficient of Variation 12.1 % (11.5-14.5); RDW Standard Deviation 38.9 fL (36.4-46.3); Red Blood Count 3.87 M/uL (4.70-6.10); White Blood Count 7.68 K/ul (4.8-10.8)
[2022-12-27 06:55] LABS: Albumin Globulin Ratio 1.4 (0.9-2); Albumin Level 3.3 gm/dl (3.4-5.0); BUN Creatinine Ratio 16.3 (10-20); Bilirubin,Total 0.5 mg/dl (0.2-1.0); Calcium 8.3 mg/dl (8.5-10.1); Creatinine Clr Calc Pharmacy 125.2 ml/min; Est GFR (African American) 123.1 ml/min; Est GFR (Non-African American) 106.2 ml/min; Globulin 2.4 gm/dl (2.5-4.0); Phosphorus 2.7 mg/dl (2.5-4.9); Potassium 3.6 mmol/L (3.5-5.1); Total Protein 5.7 gm/dl (6.0-8.3)
[2022-12-27] MEDS: ENOXAPARIN INJ 40 MG/0.4 ML SYR SQ SCH (08:31)
--- NOTE | 2022-12-27 10:41 | Hospitalist Progress Note ---
Date of Service December 27, 2022 Assessment & Plan (1) AMS (altered mental status): (2) Metabolic encephalopathy: (3) Polysubstance dependence: Plan: This is a 42 yo male who presents with altered mental status. 1. Altered mental status, fever spike. The patient has history of drug abuse, encephalopathy, could be secondary to infection, could be secondary to also drug use. We will follow the cultures. blood cultx so far negative lactic acid - wnl ammonia - wnl Hepatitis panel - negative COVID 19 test - negative ER ordered MRI scan of the head and also spine. no abscess, overall unremarkable In the ER, pt received IV vancomycin and IV Rocephin. We will continue with IV vancomycin and IV Rocephin. Closely monitor in the tele floor. Hemodynamics are okay at this time. Initially on IV fluids, these were stopped. Patient's mental status seem back to baseline, will advance diet. 2. Elevated liver function tests. From above LFTs trended dowm, hep panel negative 3. Mild rhabdomyolysis. CK 857. Received IVF, CK down to 400s on repeat labs. 4. History of drug use with positive drug screen. Needs counseling. 5. Tobacco use disorder. Counseling. DVT prophylaxis: Lovenox subq Code: FULL CODE. DISPOSITION: tele floor. Discharge plan to be determined. Admission and Anticipated Discharge Date Admission Date: December 26, 2022 Subjective Patient seen in follow-up of altered mental status, history of polysubstance abuse, fever Currently laying in bed, in no acute distress Afebrile Able to answer simple questions appropriately No chills chest pain no shortness of breath, no abdominal pain. Appetite ok, will advance diet. Patient is currently homeless, CM involved in discharge planning Review of Systems Review of Systems: All systems reviewed & are unremarkable except as noted in Subjective Physical Exam Physical Exam: GENERAL:Well-developed/well-nourished male, in no acute distress HEENT: NC/AT. EOMI. No facial trauma seen. No facial droop seen. NECK: No neck masses seen. CARDIOVASCULAR: S1 and S2 heard.RRR. No murmurs. RESPIRATORY: Normal AP diameter. No accessory muscle use. No wheezing or crackles. ABDOMEN: Soft, bowel sounds present, nontender, no distention. NEURO:Awake alert, able to answer simple questions appropriately. Speech fluent, no facial asymmetry, moves extremities. EXTREMITIES: No edema, no erythema. Results & Data Results & Data ([facility]) Vital Signs (Past 12 Hours) Vital Signs Temp Pulse Pulse Resp BP Pulse Ox O2 Del Method 12/27/22 07:48 36.6 C 72 17 114/72 96 Room Air 12/27/22 03:09 36.4 C L 68 16 107/67 94 Room Air 12/27/22 00:00 95 H 12/26/22 23:42 36.7 C 76 16 108/66 95 Room Air Laboratory Results 12/27/22 12/27/22 Range/Units 05:41 05:41 WBC 7.68 (4.8-10.8) K/ul RBC 3.87 L (4.70-6.10) M/uL Hgb 11.4 L (14.0-18.0) g/dl Hct 33.8 L (42.0-52.0) % MCV 87.3 (80.0-100.0) fL MCH 29.5 (25.0-34.0) pg MCHC 33.7 (32.0-36.0) g/dL RDW Std Deviation 38.9 (36.4-46.3) fL RDW Coeff of Rafal 12.1 (11.5-14.5) % Plt Count 316 (130-400) K/uL MPV 10.7 (9.4-12.4) fL Sodium 141 (136-145) mmol/L Potassium 3.6 (3.5-5.1) mmol/L Chloride 111 H (98-107) mmol/L Carbon Dioxide 27 (21-32) mmol/L Anion Gap 3 (3-11) BUN 14 (6-23) mg/dl Creatinine 0.86 (0.6-1.4) mg/dl Est Cr Clr Drug Dosing 125.2 ml/min Est GFR ( Amer) 123.1 ml/min Est GFR (Non-Af Amer) 106.2 ml/min BUN/Creatinine Ratio 16.3 (10-20) Glucose 90 (70-99(Fasting)) mg/dl Calcium 8.3 L (8.5-10.1) mg/dl Phosphorus 2.7 (2.5-4.9) mg/dl Magnesium 2.0 (1.7-2.4) mg/dl Total Bilirubin 0.5 D (0.2-1.0) mg/dl AST 19 (13-39) U/L ALT 32 (7-52) U/L Alkaline Phosphatase 53 (34-104) U/L Total Protein 5.7 L D (6.0-8.3) gm/dl Albumin 3.3 L (3.4-5.0) gm/dl Globulin 2.4 L (2.5-4.0) gm/dl Albumin/Globulin Ratio 1.4 (0.9-2) Medications Administered Current Inpatient Medications Enoxaparin Sodium (Enoxaparin Inj 40 Mg/0.4 Ml Syr) 40 mg SQ QAM [facility] Stop: 01/25/23 08:59 Last Admin: 12/27/22 08:31 Dose: 40 mg Cefepime HCl 2,000 mg/ Syringe 20 mls @ 5 mls/min IV Q8H [facility]; Protocol Stop: 12/28/22 05:59 Last Admin: 12/27/22 05:23 Dose: 5 mls/min Acetaminophen (Ofirmev) 1,000 mg in 100 mls @ 400 mls/hr IV Q8H PRN PRN Reason: Pain or Fever Stop: 12/29/22 03:30 Last Infusion: 12/26/22 21:06 Dose: Infused Sodium Chloride (Nss 1000ml) 1,000 mls @ 150 mls/hr IV .Q6H40M [facility] Stop: 01/25/23 03:30 Last Admin: 12/27/22 05:29 Dose: 150 mls/hr Vancomycin HCl 1,250 mg/ (Sodium Chloride) 275 mls @ 200 mls/hr IV Q12H [facility]; Protocol Stop: 12/28/22 05:59 Last Infusion: 12/27/22 07:34 Dose: Infused Miscellaneous Information (Vancomycin Consult Active) 1 each N/A UD PRN PRN Reason: Consult Stop: 01/24/23 21:49 Nitroglycerin (Nitroglycerin Sl 0.4 Mg/Tab Tab) 0.4 mg SL UD PRN PRN Reason: Chest Pain Stop: 01/25/23 03:30 (1) AMS (altered mental status) Altered mental status type: unspecified Qualified Code(s): R41.82 - Altered mental status, unspecified
[2022-12-27 12:13] LABS: HBSAG NON-REACTIVE (NON-REACTIVE); Hepatitis A Antibody IgM NON-REACTIVE (NON-REACTIVE); Hepatitis B Core Antibody IgM NON-REACTIVE (NON-REACTIVE)
[2022-12-27 23:02] LABS: Amphetamine Urine, Confirm 272 ng/mL (<250); Methamphetamine, Ur Confirm 1310 ng/mL (<250)
[2022-12-28] MEDS: SODIUM CHLORIDE 0.9% 1000ML 1,000 ML IV SCH ×4 (04:34→15:48)
[2022-12-28] MEDS ORDERED: VANCOMYCIN LEVEL ONE (05:30)
[2022-12-28] MEDS: CEFEPIME 2,000 MG in SYRINGE 0 ML IV SCH ×3 (05:54→21:26)
[2022-12-28] MEDS: VANCOMYCIN HCL 1,250 MG in SODIUM CHLORIDE 0.9% 250 ML IV SCH ×3 (06:35→21:27)
[2022-12-28 07:03] LABS: Hematocrit (blood only) 36.8 % (42.0-52.0); Hemoglobin 12.6 g/dl (14.0-18.0); Mean Corpuscular Hemoglobin 29.5 pg (25.0-34.0); Mean Corpuscular Hgb Conc 34.2 g/dL (32.0-36.0); Mean Corpuscular Volume 86.2 fL (80.0-100.0); Mean Platelet Volume 10.4 fL (9.4-12.4); Platelet Count 334 K/uL (130-400); RDW Coefficient of Variation 12.1 % (11.5-14.5); RDW Standard Deviation 38.4 fL (36.4-46.3); Red Blood Count 4.27 M/uL (4.70-6.10); White Blood Count 6.24 K/ul (4.8-10.8)
[2022-12-28 07:17] LABS: Albumin Globulin Ratio 1.4 (0.9-2); Albumin Level 3.6 gm/dl (3.4-5.0); BUN Creatinine Ratio 16.5 (10-20); Bilirubin,Total 0.4 mg/dl (0.2-1.0); Calcium 8.6 mg/dl (8.5-10.1); Creatinine Clr Calc Pharmacy 126.6 ml/min; Est GFR (African American) 123.7 ml/min; Est GFR (Non-African American) 106.7 ml/min; Globulin 2.5 gm/dl (2.5-4.0); Magnesium 2.1 mg/dl (1.7-2.4); Phosphorus 3.2 mg/dl (2.5-4.9); Potassium 3.7 mmol/L (3.5-5.1); Total Protein 6.1 gm/dl (6.0-8.3)
[2022-12-28] MEDS: ENOXAPARIN INJ 40 MG/0.4 ML SYR SQ SCH (08:02)
--- NOTE | 2022-12-28 08:39 | Pharmacy Report ---
Pharmacy PK ABX Note - Date of Service December 28, 2022 - Assessment and Plan Assessment 42 year old M empirically started on vancomycin and cefepime on 12/26. Recently admitted 12/19-12/22 for substance abuse, psychosis, encephalopathy. Patient with confusion, altered mental status, fever on admission. Blood cultures - no growth. Afebrile since 12/26. Discussed with Dr Guzman on 12/26, wanted to continue antibiotics, so duration extended. Day #3 Vancomycin + Cefepime. Plan Vancomycin * Current regimen: 1250 mg IV every 12 hours * Trough level obtained 12/28/22 resulted as 6.3 mcg/mL. This is predicted to be below target AUC/MYRON of 400-600 mg/L.hr * Change to 1250 mg IV every 8 hours to achieve AUC/MYRON of 400-600mg/L.hr * Repeat trough level ordered for: 12/30/22 * Pharmacy has transitioned to AUC monitoring for vancomycin. AUC/MYRON is the pre ferred PK/PD target and is associated with decreased risk of nephrotoxicity compared to traditional trough targets. Cefepime 2g IV Q12H Pharmacy will continue to follow and will adjust dose/frequency as necessary. Thank you.
--- NOTE | 2022-12-28 10:24 | Hospitalist Progress Note ---
Date of Service December 28, 2022 Assessment & Plan (1) AMS (altered mental status): (2) Metabolic encephalopathy: (3) Polysubstance dependence: Plan: This is a 42 yo male who presents with altered mental status. 1. Altered mental status, fever spike. The patient has history of drug abuse, encephalopathy, could be secondary to infection, could be secondary to also drug use. We will follow the cultures. blood cultx so far negative for 48 hrs lactic acid - wnl ammonia - wnl Hepatitis panel - negative COVID 19 test - negative ER ordered MRI scan of the head and also spine. no abscess, overall unremarkable In the ER, pt received IV vancomycin and IV Rocephin. We will continue with IV vancomycin and IV Rocephin. Closely monitor in the tele floor. Hemodynamics are okay at this time. Initially on IV fluids, these were stopped. Patient's mental status back to baseline. 2. Elevated liver function tests. 2/2 above LFTs trended down, hep panel negative 3. Mild rhabdomyolysis. CK 857. Received IVF, CK down to 400s on repeat labs. 4. History of drug use with positive drug screen. + Methamphetamine. Counseling provided. Pt seems determined to quit using it. 5. Tobacco use disorder. Counseling. DVT prophylaxis: Lovenox subq Code: FULL CODE. DISPOSITION: tele floor. Likely to be discharged to [facility] in [place] tomorrow. Admission and Anticipated Discharge Date Admission Date: December 26, 2022 Subjective Patient seen in follow-up of altered mental status, history of polysubstance abuse, fever Currently laying in bed, in no acute distress Afebrile Awake alert, and able to answer simple questions appropriately No chills chest pain no shortness of breath, no abdominal pain. Appetite good. Patient is currently homeless, CM involved in discharge planning - plan to go to [facility] in [place] Patient reports that his sister is planning to come see him tomorrow Review of Systems Review of Systems: All systems reviewed & are unremarkable except as noted in Subjective Physical Exam Physical Exam: GENERAL:Well-developed/well-nourished male, in no acute distress HEENT: NC/AT. EOMI. No facial trauma seen. No facial droop seen. NECK: No neck masses seen. CARDIOVASCULAR: S1 and S2 heard.RRR. No murmurs. RESPIRATORY: Normal AP diameter. No accessory muscle use. No wheezing or crackles. ABDOMEN: Soft, bowel sounds present, nontender, no distention. NEURO:Awake alert, able to answer simple questions appropriately. Speech fluent, no facial asymmetry, moves extremities. EXTREMITIES: No edema, no erythema. Results & Data Results & Data ([facility]) Vital Signs (Past 12 Hours) Vital Signs Temp Pulse Pulse Resp BP Pulse Ox O2 Del Method 12/28/22 07:40 36.7 C 69 16 125/80 95 Room Air 12/28/22 03:29 36.5 C 65 18 117/74 95 Room Air 12/28/22 00:00 78 12/27/22 23:28 36.6 C 72 18 113/74 94 Room Air Laboratory Results 12/28/22 12/28/22 12/28/22 Range/Units 06:21 06:21 06:21 WBC 6.24 (4.8-10.8) K/ul RBC 4.27 L (4.70-6.10) M/uL Hgb 12.6 L (14.0-18.0) g/dl Hct 36.8 L (42.0-52.0) % MCV 86.2 (80.0-100.0) fL MCH 29.5 (25.0-34.0) pg MCHC 34.2 (32.0-36.0) g/dL RDW Std Deviation 38.4 (36.4-46.3) fL RDW Coeff of Rafal 12.1 (11.5-14.5) % Plt Count 334 (130-400) K/uL MPV 10.4 (9.4-12.4) fL Sodium 140 (136-145) mmol/L Potassium 3.7 (3.5-5.1) mmol/L Chloride 110 H (98-107) mmol/L Carbon Dioxide 26 (21-32) mmol/L Anion Gap 4 (3-11) BUN 14 (6-23) mg/dl Creatinine 0.85 (0.6-1.4) mg/dl Est Cr Clr Drug Dosing 126.6 ml/min Est GFR ( Amer) 123.7 ml/min Est GFR (Non-Af Amer) 106.7 ml/min BUN/Creatinine Ratio 16.5 (10-20) Glucose 109 H (70-99(Fasting)) mg/dl Calcium 8.6 (8.5-10.1) mg/dl Phosphorus 3.2 (2.5-4.9) mg/dl Magnesium 2.1 (1.7-2.4) mg/dl Total Bilirubin 0.4 (0.2-1.0) mg/dl AST 16 (13-39) U/L ALT 31 (7-52) U/L Alkaline Phosphatase 62 (34-104) U/L Total Protein 6.1 (6.0-8.3) gm/dl Albumin 3.6 (3.4-5.0) gm/dl Globulin 2.5 (2.5-4.0) gm/dl Albumin/Globulin Ratio 1.4 (0.9-2) Vancomycin Trough 6.3 L (10-20) mcg/ml U Amphetamines Confirm (<250) ng/mL U Methamphetamin Confrm (<250) ng/mL Drug Screen Comment Hepatitis A IgM Ab (NON-REACTIVE) Hep Bs Antigen (NON-REACTIVE) Hep Bs Ag Confirmation Hep B Core IgM Ab (NON-REACTIVE) Hepatitis C Ab (EIA) (NON-REACTIVE) Hep C Ab Signal/Cutoff (<1.00) 12/26/22 12/25/22 Range/Units 00:50 21:55 WBC (4.8-10.8) K/ul RBC (4.70-6.10) M/uL Hgb (14.0-18.0) g/dl Hct (42.0-52.0) % MCV (80.0-100.0) fL MCH (25.0-34.0) pg MCHC (32.0-36.0) g/dL RDW Std Deviation (36.4-46.3) fL RDW Coeff of Rafal (11.5-14.5) % Plt Count (130-400) K/uL MPV (9.4-12.4) fL Sodium (136-145) mmol/L Potassium (3.5-5.1) mmol/L Chloride (98-107) mmol/L Carbon Dioxide (21-32) mmol/L Anion Gap (3-11) BUN (6-23) mg/dl Creatinine (0.6-1.4) mg/dl Est Cr Clr Drug Dosing ml/min Est GFR ( Amer) ml/min Est GFR (Non-Af Amer) ml/min BUN/Creatinine Ratio (10-20) Glucose (70-99(Fasting)) mg/dl Calcium (8.5-10.1) mg/dl Phosphorus (2.5-4.9) mg/dl Magnesium (1.7-2.4) mg/dl Total Bilirubin (0.2-1.0) mg/dl AST (13-39) U/L ALT (7-52) U/L Alkaline Phosphatase (34-104) U/L Total Protein (6.0-8.3) gm/dl Albumin (3.4-5.0) gm/dl Globulin (2.5-4.0) gm/dl Albumin/Globulin Ratio (0.9-2) Vancomycin Trough (10-20) mcg/ml U Amphetamines Confirm 272 H (<250) ng/mL U Methamphetamin Confrm 1310 H (<250) ng/mL Drug Screen Comment SEE NOTE Hepatitis A IgM Ab NON-REACTIVE (NON-REACTIVE) Hep Bs Antigen NON-REACTIVE (NON-REACTIVE) Hep Bs Ag Confirmation TNP Hep B Core IgM Ab NON-REACTIVE (NON-REACTIVE) Hepatitis C Ab (EIA) NON-REACTIVE (NON-REACTIVE) Hep C Ab Signal/Cutoff 0.05 (<1.00) Medications Administered Current Inpatient Medications Enoxaparin Sodium (Enoxaparin Inj 40 Mg/0.4 Ml Syr) 40 mg SQ QAM [facility] Stop: 01/25/23 08:59 Last Admin: 12/28/22 08:02 Dose: 40 mg Cefepime HCl 2,000 mg/ Syringe 20 mls @ 5 mls/min IV Q8H [facility]; Protocol Stop: 01/02/23 05:59 Last Admin: 12/28/22 05:54 Dose: 5 mls/min Acetaminophen (Ofirmev) 1,000 mg in 100 mls @ 400 mls/hr IV Q8H PRN PRN Reason: Pain or Fever Stop: 12/29/22 03:30 Last Infusion: 12/26/22 21:06 Dose: Infused Sodium Chloride (Nss 1000ml) 1,000 mls @ 150 mls/hr IV .Q6H40M [facility] Stop: 01/25/23 03:30 Last Admin: 12/28/22 04:34 Dose: 150 mls/hr Vancomycin HCl 1,250 mg/ (Sodium Chloride) 275 mls @ 200 mls/hr IV Q8H [facility]; Protocol Stop: 01/01/23 23:59 Miscellaneous Information (Vancomycin Consult Active) 1 each N/A UD PRN PRN Reason: Consult Stop: 01/24/23 21:49 Nitroglycerin (Nitroglycerin Sl 0.4 Mg/Tab Tab) 0.4 mg SL UD PRN PRN Reason: Chest Pain Stop: 01/25/23 03:30 (1) AMS (altered mental status) Altered mental status type: unspecified Qualified Code(s): R41.82 - Altered mental status, unspecified
[2022-12-28] MEDS: ADVANCED PROBIOTIC 1250 MG CAPSULE PO SCH (18:10)
[2022-12-29] MEDS: CEFEPIME 2,000 MG in SYRINGE 0 ML IV SCH (05:11)
[2022-12-29] MEDS: VANCOMYCIN HCL 1,250 MG in SODIUM CHLORIDE 0.9% 250 ML IV SCH (05:12)
[2022-12-29 06:40] LABS: Hematocrit (blood only) 39.8 % (42.0-52.0); Hemoglobin 13.5 g/dl (14.0-18.0); Mean Corpuscular Hemoglobin 29.2 pg (25.0-34.0); Mean Corpuscular Hgb Conc 33.9 g/dL (32.0-36.0); Mean Corpuscular Volume 86.1 fL (80.0-100.0); Mean Platelet Volume 10.2 fL (9.4-12.4); Platelet Count 356 K/uL (130-400); RDW Standard Deviation 37.8 fL (36.4-46.3); Red Blood Count 4.62 M/uL (4.70-6.10); White Blood Count 7.59 K/ul (4.8-10.8)
[2022-12-29 07:00] LABS: BUN Creatinine Ratio 13.4 (10-20); Calcium 9.1 mg/dl (8.5-10.1); Est GFR (African American) 110.4 ml/min; Est GFR (Non-African American) 95.2 ml/min; Phosphorus 3.3 mg/dl (2.5-4.9); Potassium 3.9 mmol/L (3.5-5.1)
[2022-12-29] MEDS: ADVANCED PROBIOTIC 1250 MG CAPSULE PO SCH (08:11)
[2022-12-29] MEDS: ENOXAPARIN INJ 40 MG/0.4 ML SYR SQ SCH (08:11)
--- NOTE | 2022-12-29 09:29 | Discharge Summary ---
Date of Service December 29, 2022 Admission HPI Per Admitting Provider This is a 42-year-old male, he is homeless, was brought in because of confusion, altered mental status. The patient recently was admitted here in the hospital on 12/19/2022 and discharged on 12/22/2022. At that time also he was admitted for substance abuse, drug-induced psychosis, encephalopathy, thought to be possible diagnosis of Schizophrenia. At that time he was found outside [facility]'s At that time confusion, was thought from hypothermia, substance abuse, and mild rhabdomyolysis. At that time, his toxicology screen was positive for methamphetamine and THC. At that time, he admitted using methamphetamine and cocaine, but unclear when was last used and also he admitted at that time to smoking cigarettes and also occasional alcohol. Currently, the patient is very drowsy, opens eyes on calling, could tell his name, but answering randomly and could not get any history from the patient. He spiked a temperature of 38.1 in the ER, his pulse is 101, blood pressure 115/53, 94% oxygen on room air. WBC 18,000. C-reactive protein 2.9, total creatine kinase 857. Procalcitonin 0.1. Ethyl alcohol less than 10. His hepatitis panel, COVID, influenza and RSV tests are pending. CT of the head, preliminary report, no acute findings. ER ordered MRI of the brain and also MRI of his total spine, which are not done yet. Was empirically given vancomycin and Rocephin. Admission Exam Per Admitting Provider GENERAL: The patient is drowsy, but arousable and could tell his name. VITAL SIGNS: Temperature 38.1, pulse 101, respiratory rate 20, blood pressure 115/53, oxygen 94% on room air. HEENT: Pupils sluggish to react to light. No facial trauma seen. No facial droop seen. NECK: No neck masses seen. CARDIOVASCULAR: S1 and S2 heard. Tachycardia. No murmurs. RESPIRATORY SYSTEM: Normal AP diameter. No accessory muscle use. No wheezing or crackles. ABDOMEN: Soft, bowel sounds present, nontender, no distention. CENTRAL NERVOUS SYSTEM: Drowsy, arousable, only could tell his name, not obeying any commands. No obvious facial droop seen. Speech seems to be okay when he talks. EXTREMITIES: No edema, no erythema. Principal Diagnosis Altered mental status/metabolic encephalopathy, polysubstance use, fever Discharge Exam GENERAL:Well-developed/well-nourished male, in no acute distress HEENT: NC/AT. EOMI. No facial trauma seen. No facial droop seen. NECK: No neck masses seen. CARDIOVASCULAR: S1 and S2 heard.RRR. No murmurs. RESPIRATORY: Normal AP diameter. No accessory muscle use. No wheezing or crackles. ABDOMEN: Soft, bowel sounds present, nontender, no distention. NEURO:Awake alert, able to answer simple questions appropriately. Speech fluent, no facial asymmetry, moves extremities. EXTREMITIES: No edema, no erythema. Discharge Data Allergies Allergy/AdvReac Type Severity Reaction Status Date / Time bee venom protein (honey bee) Allergy Severe anaphylaxis Verified 12/25/22 21:44 aspirin Allergy Intermediate HIVES Verified 12/25/22 21:44 cat dander Allergy Intermediate CONGESTION, Verified 12/25/22 21:44 SNEEZING, ITCHY EYES grass pollen Allergy Intermediate Congested Verified 12/25/22 21:44 Consultations 12/25/22 23:15 ED Decision to Admit Stat Ordered Studies 12/25/22 21:51 CT head/brain wo con Stat Findings: The ventricles, basal cisterns, and cerebral sulci are normal. There is no acute intracranial hemorrhage or evidence of acute territorial infarction. Neither mass effect, shift of the midline structures, nor abnormal extra-axial fluid collections are shown. Imaged portions of the paranasal sinuses and mastoid air cells are clear. The orbits appear normal. There are no acute fractures of the calvaria or scalp swelling. Impression: No acute intracranial hemorrhage, no evidence of acute territorial infarction or other acute intracranial disease process. 12/26/22 00:00 MR brain wo/w con Stat FINDINGS: There are no areas of restricted diffusion to suggest acute infarction. The midline structures are intact. The paranasal sinuses are clear. The mastoid air cells are clear. The ventricles and sulci are within normal limits for age. There is no mass, hematoma, midline shift. The major vascular flow-voids at the skull base are well maintained. Postcontrast sequences show no areas of abnormal enhancement. IMPRESSION: No acute intracranial abnormality. MR cervical spine wo/w con Stat FINDINGS: The alignment is anatomical. Disks are normal in height and signal. C2-C3: Unremarkable. C3-C4: Unremarkable. C4-C5: Unremarkable. C5-C6: Unremarkable. C6-C7: Unremarkable. C7-T1: Unremarkable. The spinal ligaments are intact, without evidence of disruption or abnormal signal intensity. The spinal cord is normal in signal intensity and there is no evidence of cord contusion. There is no evidence of an extradural, intradural, extramedullary or intramedullary lesion. Visualized soft tissues are normal. Vi sualized brain parenchyma is normal. IMPRESSION: No evidence of cord compression or significant neuroforaminal narrowing. MR lumbar spine wo/w con Stat FINDINGS: Lumbar spine: Vertebral body height and alignment are maintained throughout the lumbar spine. Normal marrow signal intensity is preserved about the visualized bony structures. The transverse and spinous processes appear intact. There is no evidence of spondylolysis. No destructive bony lesion or erosive changes seen. Intervertebral discs: There is moderate degenerative disc desiccation and loss of height at L1-L2, L2-L3, and L5-S1. There is no fluid within the disc spaces. Spinal cord and central canal: The visualized spinal cord is normal in morphology and signal intensity. The conus medullaris terminates at the level of L1. The nerve roots of the cauda equina are normal in morphology. There is no evidence of epidural fluid collection. L1-L2: There is minimal posterior disc bulge and annular fissure. The central canal and neural foramina are patent. L2-L3: There is normal posterior disc bulge. The central canal and neural foramina are patent. L3-L4: Unremarkable. L4-L5: Unremarkable. L5-S1: There is broad-based posterior disc bulge and annular fissure. No acquired compromise of the central canal is seen. Lateral disc bulges contribute to mild bilateral subarticular stenosis, left greater than right. This may abut the exiting left L5 nerve root. There is no significant neural foraminal narrowing. Sacrum: The visualized sacrum is normal in morphology and signal intensity. Soft tissues: There is marked bladder distention. The paraspinous soft tissues are normal in appearance. The iliopsoas musculature is within normal limits. The visualized retroperitoneal structures are grossly unremarkable but incompletely assessed. IMPRESSION: 1. No acute bony abnormality is seen involving the lumbar spine. Specifically, there is no MRI evidence of discitis/osteomyelitis. 2. Moderate degenerative disc disease as above. See discussion. 3. There is no acquired compromise of the central canal or high-grade neural foraminal narrowing seen throughout the upper lumbar region. 4. Marked bladder distention. 5. Additional findings as above. MR thoracic spine wo/w con Stat FINDINGS: Alignment of the thoracic spine is anatomic. Vertebral body heights are maintained. There is no marrow edema or marrow replacement. Thoracic cord signal and caliber are normal. There is no intracanalicular mass or fluid collection. Disc spaces are preserved. There is no evidence for discitis or osteomyelitis within the thoracic spine. Paravertebral soft tissues are unremarkable. The central canal and neural foramen are patent. Dependent airspace opacities within the lungs are suboptimally assessed by MRI but favor atelectasis. IMPRESSION: Unremarkable MRI of the thoracic spine. Hospital Course (1) AMS (altered mental status): (2) Metabolic encephalopathy: (3) Polysubstance dependence: This is a 42 yo male who presents with altered mental status. 1. Altered mental status, fever spike. The patient has history of drug abuse, encephalopathy, could be secondary to infection, could be secondary to also drug use. We will follow the cultures. blood cultx so far negative lactic acid - wnl ammonia - wnl Hepatitis panel - negative COVID 19 test - negative ER ordered MRI scan of the head and also spine. no abscess, overall unremarkable In the ER, pt received IV vancomycin and IV Rocephin.Continued with IV vancomycin and IV Cefepime Closely monitor in the tele floor. Hemodynamics are okay at this time. Initially on IV fluids, these were stopped. Patient's mental status back to baseline. Clinically patient is doing quite well, mental status is back to baseline, afebrile. Plan to DC on PO antibiotic. Follow up w/ PCP. 2. Elevated liver function tests. 2/2 above LFTs trended down, hep panel negative 3. Mild rhabdomyolysis. CK 857. Received IVF, CK down to 400s on repeat labs. 4. History of drug use with positive drug screen. + Methamphetamine. Counseling provided. Pt seems determined to quit using it. 5. Tobacco use disorder. Counseling. DISPOSITION: Plan to discharge to [facility] in [place] today Total Time Total Time Spent Total Time Spent (In Minutes): 40 Discharge Plan Discharge Items Patient Disposition: Home - Self-Care Reason For Visit: AMS Discharge Diagnosis: Altered mental status/metabolic encephalopathy, polysubstance use, fever Condition on Discharge: Fair Activity: Per Instructions section Non-emergency contact: Primary Care Provider Call non-emergency contact if: you have any medication questions and your symptoms worsen Follow-up/Referrals: PCP,NO [Primary Care Provider] - Diet: Regular Addtl Attending Provider Instructions: Finish antibiotic treatment with Augmentin, as prescribed. Follow-up with primary care physician within 1 to 2 weeks. Pending Studies at Discharge: Yes Studies:: final blood culture Stand-Alone Forms: My [facility] In*Situ Architecture, Smoking Cessation Medications and DC Order Prescriptions: New amoxicillin-pot clavulanate 875-125 mg tablet 1 tab PO BID 2 Days Qty: 4 0RF No Action No Known Home Medications Discharge Orders: Discharge Order (Routine); Ordered 12/29/22 Ordered By: Mikey Guzman Admission Data Admit Date/Time: 12/26/22 00:28 Attending Provider: Mikey Guzman Admit Provider: Tab Rubio Primary Care Provider: PCP,NO Other Providers: Tab Rubio
[2022-12-30] MEDS ORDERED: VANCOMYCIN LEVEL ONE (05:30)
== END 2022-12-29 13:05 | disposition home or self-care (01) ==
LOC: ED 21:05 → INTOOBSV 12-26 00:28 → 4W 12-26 00:28

== ENCOUNTER 2025-04-28 15:31 | Inpatient (IN) ==
[2025-04-28 16:21] LABS: Basophils # (auto) 0.04 K/uL (0.00-0.20); Basophils % (auto) 0.3 %; Eosinophils # (auto) 0.12 K/uL (0.00-0.50); Hematocrit (blood only) 44.2 % (42.0-52.0); Hemoglobin 15.3 g/dl (14.0-18.0); Immature Granulocytes # (auto) 0.05 K/uL (0.01-0.20); Immature Granulocytes % (auto) 0.4 %; Lymphocytes # (auto) 1.93 K/uL (1.20-3.40); Lymphocytes % (auto) 16.3 %; Mean Corpuscular Hemoglobin 29.6 pg (25.0-34.0); Mean Corpuscular Hgb Conc 34.6 g/dL (32.0-36.0); Mean Corpuscular Volume 85.5 fL (80.0-100.0); Mean Platelet Volume 10.3 fL (9.4-12.4); Monocytes # (auto) 0.47 K/uL (0.11-0.59); Platelet Count 363 K/uL (130-400); RDW Coefficient of Variation 12.2 % (11.5-14.5); RDW Standard Deviation 37.9 fL (36.4-46.3); Red Blood Count 5.17 M/uL (4.70-6.10); White Blood Count 11.81 K/ul (4.8-10.8)
[2025-04-28 16:32] LABS: Calcium 9.8 mg/dl (8.6-10.3); Potassium 3.9 mmol/L (3.5-5.1)
[2025-04-28 16:37] LABS: Albumin Globulin Ratio 1.8 (0.9-2); BUN Creatinine Ratio 9.8 (10-20); Creatinine Clr Calc Pharmacy 88.7 ml/min; Globulin 2.8 gm/dl (2.5-4.0); Total Protein 7.8 gm/dl (6.0-8.3)
[2025-04-28 16:44] LABS: Acetaminophen < 3 ug/ml (10-30); Salicylate < 3.0 mg/dl (3.0-30)
[2025-04-28 16:47] LABS: Appearance Urine Clear (Clear); Bilirubin Urine Negative (Negative); Blood Urine Negative (Negative); Color Urine Yellow; Glucose Urine UA Negative (Negative); Ketones Urine Negative (Negative); Leukocyte Esterase Urine Negative (Negative); Nitrite Urine Negative (Negative); Protein Urine Negative (Negative); Specific Gravity Urine 1.008 (1.000-1.030); Urobilinogen Urine Negative (Negative)
[2025-04-28 16:51] LABS: Thyroid Stimulating Hormone 2.856 uIu/ml (0.300-4.500)
--- NOTE | 2025-04-28 17:01 | Emergency Department Note ---
Impression & Plan Schizophrenia ED Provider Note NAME: KATHY GTZ AGE: 44 SEX: M : 1980 ARRIVES VIA: Walk-In INFORMANT: Patient, ED PROVIDER(S): Dee Joaquin MD CHIEF COMPLAINT: SI HPI: This is a 44-year-old male presenting for SI. Patient notes that he has a mental health history and that he has not has medications in some time. He is very slow to respond as well as does not respond at all. He reports being homeless otherwise. He reports feelings of SI to me, HI to the property portfolio officer and nurse. He reports no alcohol use recently. ROS: See above HPI for pertinent positives & negatives. A total of 10 systems reviewed and were otherwise negative. PAST MEDICAL HISTORY: See Below PAST SURGICAL HISTORY: See Below FAMILY HISTORY: See Below SOCIAL HISTORY: See Below HOME MEDICATIONS: See Below ALLERGIES: See Below VITALS: See Below PHYSICAL EXAMINATION: General: resting comfortably in no acute distress Head: Normocephalic and atraumatic Eyes: Normal inspection, extraocular muscles intact Ear, nose, throat: Normal external exam Neck: Normal range of motion Respiratory: speaking in full sentences, symmetric chest rise, no respiratory distress Cardiovascular: Regular rate/rhythm Extremities: moves all extremities Neuro: The patient awake and alert, appropriately conversive, symmetric faces, no focal deficits Psych: Slowed speech, nonlinear thought process, flat affect MEDICAL DECISION MAKING: This is a 44-year-old male presenting for suicidal ideation. Patient reports SI to me and HI to the property portfolio officer/nurse. Patient does appear to have sequelae of possible schizophrenia, he slowed respond, unclear if he is having response to internal stimuli. He does stare off into space occasionally as well. - Bloodwork is reviewed showing no significant leukocytosis, anemia, electrolyte or creatinine abnormality -Urinalysis negative -Patient is medically clear for psychiatric placement - Patient now admits to auditory hallucinations. - There is initially assessed by [facility]. but refused to talk to them. Currently undergoing bed search. - Patient signed to oncoming physician Differential diagnosis: Psychosis, schizophrenia, Past Med/Surg History Problem List (Updated 04/29/25 @ 19:29 by Dee Joaquin MD) AMS (altered mental status) (Acute) Sepsis (Acute) Elevated liver enzymes (Acute) Metabolic encephalopathy (Acute) Polysubstance dependence (Acute) Schizophrenia (Acute) by history Dehydration (Acute) Hypothermia (Acute) Rhabdomyolysis (Acute) Substance abuse (Acute) Medical History Encephalopathy Schizophrenia by history Substance abuse Surgical History No pertinent past surgical history Family History Other Family history unknown Social History Smoking Status: Current some day smoker Tobacco Type: Cigarettes Second Hand Exposure: No; Do You Dip or Chew Tobacco: No; Hx Alcohol Use: Yes Hx Substance Use: Yes Non-Prescribed Medications: Crack / Cocaine and Methamphetamines Last Used Substance: Unknown Substance Use Type Other:: Pt states cocaine,marajuana, urine pos amphetamines Preferred Language: Hungarian Communication Ability: Effective Reinsurance Claims Analyst Required: No Beliefs That Will Affect Care: None Current Living Situation: Homeless Current Living Situation Comment: homeless Feels Safe at Home: No Is there a partner from a previous relationship who is making you feel unsafe now?: No Gender Identity: Male Assistive Devices: None Allergies Allergies Allergy/AdvReac Type Severity Reaction Status Date / Time bee venom protein (honey bee) Allergy Severe anaphylaxis Verified 12/25/22 21:44 aspirin Allergy Intermediate HIVES Verified 12/25/22 21:44 cat dander Allergy Intermediate CONGESTION, Verified 12/25/22 21:44 SNEEZING, ITCHY EYES grass pollen Allergy Intermediate Congested Verified 12/25/22 21:44 Home Meds Home Medications Medication Instructions Recorded Confirmed cholecalciferol (vitamin D3) 125 5,000 unit PO DAILY 04/29/25 04/29/25 mcg (5,000 unit) capsule sertraline 50 mg tablet 50 mg PO DAILY 04/29/25 04/29/25 trazodone 50 mg tablet 50 mg PO DAILY 04/29/25 04/29/25 Results & Data (ED) Vital Signs Vital Signs - 24 hr 04/28/25 23:42 Pulse Rate [Finger] 58 L Pulse Rhythm [Finger] Regular Pulse Strength [Finger] Normal Respiratory Rate 16 Respiratory Effort / Characteristics Non-Labored Respiratory Depth Normal Respiratory Pattern Regular Blood Pressure [Right Arm] 118/81 Blood Pressure Mean [Right Arm] 93 Blood Pressure Position [Right Arm] Lying Pulse Oximetry 96 Oxygen Delivery Method Room Air Laboratory Data 04/28/25 15:45 04/28/25 15:45 Lab Results 04/28/25 04/28/25 04/28/25 Range/Units 15:45 16:33 Unknown WBC 11.81 H (4.8-10.8) K/ul RBC 5.17 (4.70-6.10) M/uL Hgb 15.3 (14.0-18.0) g/dl Hct 44.2 (42.0-52.0) % MCV 85.5 (80.0-100.0) fL MCH 29.6 (25.0-34.0) pg MCHC 34.6 (32.0-36.0) g/dL RDW Std Deviation 37.9 (36.4-46.3) fL RDW Coeff of Rafal 12.2 (11.5-14.5) % Plt Count 363 (130-400) K/uL MPV 10.3 (9.4-12.4) fL Immature Gran % (Auto) 0.4 % Neut % (Auto) 78.0 % Lymph % (Auto) 16.3 % [place] % (Auto) 4.0 % Eos % (Auto) 1.0 % Baso % (Auto) 0.3 % Neut # (Auto) 9.20 H (1.40-6.50) K/uL Lymph # (Auto) 1.93 (1.20-3.40) K/uL [place] # (Auto) 0.47 (0.11-0.59) K/uL Eos # (Auto) 0.12 (0.00-0.50) K/uL Baso # (Auto) 0.04 (0.00-0.20) K/uL Immature Gran # (Auto) 0.05 (0.01-0.20) K/uL Sodium 136 (136-145) mmol/L Potassium 3.9 (3.5-5.1) mmol/L Chloride 100 (98-107) mmol/L Carbon Dioxide 27 (21-32) mmol/L Anion Gap 9 (3-11) BUN 11 (6-23) mg/dl Creatinine 1.12 (0.6-1.4) mg/dl Est Cr Clr Drug Dosing 88.7 ml/min eGFR 82.56 BUN/Creatinine Ratio 9.8 L (10-20) Glucose 91 (70-99(Fasting)) mg/dl Calcium 9.8 (8.6-10.3) mg/dl Total Bilirubin 1.0 (0.2-1.0) mg/dl AST 27 (13-39) U/L ALT 74 H (7-52) U/L Alkaline Phosphatase 81 (34-104) U/L Total Protein 7.8 (6.0-8.3) gm/dl Albumin 5.0 (3.4-5.0) gm/dl Globulin 2.8 (2.5-4.0) gm/dl Albumin/Globulin Ratio 1.8 (0.9-2) TSH 2.856 (0.300-4.500) uIu/ml Urine Color Yellow Urine Appearance Clear (Clear) Urine pH 6.0 (4.5-7.5) Ur Specific Swisher 1.008 (1.000-1.030) Urine Protein Negative (Negative) Urine Glucose (UA) Negative (Negative) Urine Ketones Negative (Negative) Urine Blood Negative (Negative) Urine Nitrite Negative (Negative) Urine Bilirubin Negative (Negative) Urine Urobilinogen Negative (Negative) Ur Leukocyte Esterase Negative (Negative) Urine Comment Salicylates < 3.0 L (3.0-30) mg/dl Urine Opiates Screen Neg (Neg) Ur Methadone, Qual Neg (Neg) Urine Fentanyl Screen Neg (Neg) Acetaminophen < 3 L (10-30) ug/ml Urine Barbiturates Neg (Neg) Ur Phencyclidine (PCP) Neg (Neg) U Amphetamin/Meth Scrn Neg (Neg) MDMA (Ecstasy) Screen Neg (Neg) U Benzodiazepines Scrn Neg (Neg) Ur Cocaine Metabolite Neg (Neg) U Marijuana (THC) Screen Neg (Neg) Ethyl Alcohol mg/dL < 10.0 (<10.0) mg/dl SARS-CoV-2, RNA, NAAT NEGATIVE (NEGATIVE) Administered Medications Miscellaneous (Remove Nicoderm Patch) 1 each N/A DAILY@[id number] [facility] Stop: 05/29/25 08:58 Last Admin: 04/29/25 09:06 Dose: 1 each Documented By: [id number] Nicotine (Nicotine 21 Mg/24 Hr Tdsy) 1 patch TD QAM [facility] Stop: 05/28/25 16:59 Last Admin: 04/29/25 09:02 Dose: 1 patch Documented By: [id number] Admin: 04/28/25 17:04 Dose: 1 patch Documented By: [id number] Discharge Plan Visit Data Chief Complaint: Mental Health Evaluation Stated Complaint: [facility] ED Provider: Mateo Caputo Discharge Problem: Schizophrenia Patient Disposition: Admitted As Inpatient Condition: Fair Discharge Instructions Interventions: ED Discharge Assessment Last Done: 04/29/25 00:58 Discharge Problem: Schizophrenia Qualifiers: 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
[2025-04-28] MEDS: NICOTINE 21 MG/24 HR TDSY TD SCH (17:04)
[2025-04-28 17:33] LABS: Amphetamines+Metham, Urine Neg (Neg); Barbiturates, Urine Neg (Neg); Benzodiazepine, Urine Neg (Neg); Cocaine, Urine Neg (Neg); Fentanyl, Urine Neg (Neg); MDMA (Ecstacy), Urine Neg (Neg); Marijuana, Urine Neg (Neg); Methadone, Urine Neg (Neg); Opiate, Urine Neg (Neg); Phencyclidine, Urine Neg (Neg)
--- NOTE | 2025-04-28 22:28 | Emergency Department Note ---
ED Visit Note I assumed care at the change of shift. The patient was a voluntary admission for suicidality and hallucinations. He had been deemed medically clear. A bed search was underway. Patient was accepted by our psychiatric floor, [facility]. The appropriate paperwork for the voluntary psychiatric admission was completed and signed. .
[2025-04-29] MEDS ORDERED: hydrOXYzine HCl 25 MG TAB PO PRN ×2 (01:13)
[2025-04-29] MEDS ORDERED: ACETAMINOPHEN 325 MG TAB PO PRN (01:13)
[2025-04-29] MEDS ORDERED: SODIUM CHLORIDE 0.65% NA SOLN 45 ML (OCEAN) PRN (01:13)
[2025-04-29] MEDS ORDERED: ALUMINUM/MAGNESIUM SUSP 30 ML UDC PO PRN (01:13)
[2025-04-29] MEDS ORDERED: MAGNESIUM HYDROXIDE SUSP 30 ML UDC PO PRN (01:13)
[2025-04-29] MEDS ORDERED: OLANZapine 5 MG TABLET PO PRN (06:46)
[2025-04-29] MEDS ORDERED: PNEUMOCOCCAL VACCINE (PCV20) 20-VAL CONJ-DIP CRM/PF 0.5 ML SYR IM ONE (09:00)
--- NOTE | 2025-04-29 09:08 | History & Physical ---
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 Diagnostically consistent with unspecified psychosis with differential including primary psychotic disorder vs depression with psychotic features vs substance- induced or withdrawal psychosis. Discussed medication treatment options in detail. Discussed risks, benefits and alternatives. Patient would like to start and consented to olanzapine for unspecified psychosis and sleep difficulty. Reviewed side effects including but not limited to: movement (TD, NMS), cardiac (QTc prolongation), and metabolic (stroke, insulin resistance) and necessity for fasting lipid and glucose labwork and AIMS done with score of 0. The patient's use history and negative consequences suggests substance use disorder. Motivational interviewing was done as a brief intervention. Intervention was greater than 5 minutes in length and included assessing readiness to quit, advice on how to reduce or abstain and to set a specific goal for this hospitalization. remelt worker will also assist in anticipating barriers to reducing or abstaining from substance use and in problem-solving for solutions to those problems while arranging for referral to appropriate treatment. The patient is in action stage with regards to transtheoretical model of change. Recommended decreasing consumption due to disinhibiting effects and potential for worsening psychiatric symptoms. MNPR-psychosis with paranoia Overall I spent a total of 75 minutes for this admission including review of chart records, review of labwork, direct evaluation of the patient, counseling the patient, ordering medication, risk assessment, discussion with the psychiatric liason RN and documentation in the electronic health record. (1) Psychosis: Psychosis type: unspecified psychosis type Qualified Code(s): F29 - Unspecified psychosis not due to a substance or known physiological condition (2) Auditory hallucinations: (3) Polysubstance use disorder: Plan 04/29/2025:The patient was admitted to the [facility] ([facility] mental health unit) on q15 min checks (behavioral with suicide precautions) for safety. The patient will participate in group, recreational, and milieu therapies and will be offered additional individual and family sessions as clinically appropriate. -Start olanzapine 5mg HS -Hydrocortisone cream for rash -Fasting lipid panel and HbA1c tomorrow AM -Work to get records from recent [facility] hospitalization - to explore options for outpatient CM, therapy, psychiatry Inventory Assets Strengths: supportive relationships, willing to get treatment Needs: safety and stabilization, medication adjustment, additional coping skills, increased outpatient services Suicide Risk Level Suicide Risk Level: High-Moderate (q15 min suicide checks) (psychosis with SI but feels safe in the hospital, denies command AH and feels able to ask staff for support if needed) Risk Factors Assessment Male: Yes : Yes Do You Have Access To A Gun?: No Health Problems: No Mental Health Diagnoses: Yes Substance Use Disorders: Yes Previous Attempt: No Previous Psychiatric Hospitalization: Yes Hopelessness: No Protective Factors Assessment Employed: No Psychiatric History Identifying Data HUMPHREY GTZ is a 44-year-old man who currently lives in [place] at [facility], has a 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 Chief Complaint "Thinking way too much about my living situation, my identity and so worked up I couldn't come back from it". History of Present Illness He presents for psychiatric admission for thought blocking, concern for psychosis, SI and some bizarre behaviors prior to admission. He has been isolative to his room since arriving to the unit and seems to have periods of confusion or conflicting information. It's difficult to understand fully why he came to the hospital or what he is hoping to get help with. However, he is able to discuss difficulty with sleep and that "I was on several medications that messed me up, the medications were messing with my body, mind, throat". Describes recent hospitalization at [facility] but reports he then asked to leave after a week and apparently never picked up any medications or attended any follow-up appointments. Describes that recently he's had "a lot of confusion, and my nerves were bad". Hard to get a clear timeline on when his suicidal ideation started. Currently he endorses SI but feels safe in the hospital. Describes recent stressor of using substances at a [facility] about 3-4 weeks ago. He drank alcohol and he's unsure what else he used at the [facility] but thinks methamphetamine "it's possible". He is not currently prescribed any psychiatric medications. He cannot what he took recently or what he took during recent inpatient psychiatric hospitalzation. Psychiatric ROS notable for history of symptoms of psychosis. Additional history per ED CM notes on 04/28/2025: "Met with Humphrey at bedside to complete psychiatric assessment. He is observed to be laying in the bed staring at the ceiling. When asked what is bringing him to the Emergency Department today, he stares before stating, "I don't know." He is significantly slow to respond and appears to be thought-blocked. When asked what we can help him with today, he stared for some time before saying, "I think I have insomnia or something." He relays that he hasn't slept in several days. I asked him where he was living these days and after several moments he responded, "Nowhere" and stated that he has been sleeping outside. He does have a tanned appearance from being in the elements. When asked, he admits to forgetting to take his psychiatric medications but cannot remember the names of those medications other than "trazodone". He often responds in the affirmative when asked questions like "Are you not taking your medication because you forgot?" but then states that he does not currently have outpatient providers. He also states he cannot remember what, if anything, he is diagnosed with. Chart review reveals extensive history of schizophrenia. Humphrey notes that he has been feeling suicidal for a couple days. He denies a specific trigger but does note that he feels as if he is being harassed. He answers yes when asked if he is feeling paranoid. When asked if his thoughts have progressed to a plan, he states, "I'm not a site planner. It would be a snap decision." He denies auditory and visual hallucinations, though this rn case manager does question presence of internal stimuli throughout assessment. He does state he has been eating/drinking fine, questionable if this information is reliable. He admits to history of inpatient hospitalization but cannot remember the last time or where he was last inpatient. He notes that he is willing to sign himself in for inpatient treatment stating, "I need to get my meds right." When asked about homicidal ideation or thoughts of wanting to kill anyone else, he replied, "Fuck yeah." When asked who, he thought for some time before saying, "I'd rather bring people together than hurt them". He then denies homicidal ideation. Medical clearance process explained." and "Met with patient at bedside to discuss inpatient treatment as he did not speak to the [facility] Liaison RN. He continues to appear to be thought-blocked and stares past this sba underwriter. I asked Humphrey if he was having difficulty concentrating and if that had something to do with what was taking him so long to answer questions. He states that it is hard to concentrate with the "noise". He admits at this time to hearing constant voices. He does not elaborate on the content of the voices, but does state they stress him out. Additionally, received a call from Yoly at [facility] in [place]. She states that Humphrey has been there for inpatient rehab several times over the last 3-4 years. She feels they know him well. He was with them and left on March 24. He asked them to pick him up from a friend's house and he returned to [facility] on April 22. He has been there since. Yesterday, he told staff that he needed to go to the hospital and see a doctor. He went to [facility] and was discharged. Yoly is uncertain what kind of work-up he requested at that time as he did not bring paperwork back with him. Today, he woke up and wanted to go to the [facility]. Yoly inquired to him if he thought that was the best place for him. He said no, and said he needed to go to the hospital again. Yoly further shares that typically, Humphrey is a very hard worker and talkative to his friends and staff there. 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 His friend went to look for him and found Humphrey sitting in the back seat with the windows up, sweating profusely. Yoly shares concern that Humphrey needs psychiatric intervention. " Past Psychiatric History Current Psychiatric Diagnosis: Schizophrenia Outpatient Services: none currently, previously saw a therapist at [facility] (last about 2 months ago) Previous Psych Admissions: multiple, most recently [facility] about 1-2 weeks ago? Do You Have Access To A Gun?: No History of Previous Suicide Attempt: No Past Medication Trials: trazodone (too sedating) zoloft risperidone (seemed to work well in the past, today tells me "I think I'm allergic to it") celexa Past Head Trauma/Neuro History History of Concussion/Seizure: No Allergies Allergy/AdvReac Type Severity Reaction Status Date / Time bee venom protein (honey bee) Allergy Severe anaphylaxis Verified 12/25/22 21:44 aspirin Allergy Intermediate HIVES Verified 12/25/22 21:44 cat dander Allergy Intermediate CONGESTION, Verified 12/25/22 21:44 SNEEZING, ITCHY EYES grass pollen Allergy Intermediate Congested Verified 12/25/22 21:44 Home Medications Medication Instructions Recorded Confirmed Type cholecalciferol (vitamin D3) 125 5,000 unit PO DAILY 04/29/25 04/29/25 History mcg (5,000 unit) capsule sertraline 50 mg tablet 50 mg PO DAILY 04/29/25 04/29/25 History trazodone 50 mg tablet 50 mg PO DAILY 04/29/25 04/29/25 History Family History Family History of: Refuses To Discuss Alcohol History Hx of Alcohol Use Over the Past 12 Months: Yes Smoking Use Have You Smoked or Used Tobacco Products in the Last 30 Days: Yes tobacco type: cigarettes Smoking Status: Current some day smoker Substance History Hx of Prescription Med Misuse Over the Past 12 Months: No (denies) Hx of Over the Counter Med Misuse Over the Past 12 Months: No (denies) Hx of Inhalent Misuse Over the Past 12 Months: No (denies) Hx of Organic Substance Use Over the Past 12 Months: Yes (marijuana) Hx of Illegal Substances/Street Drug Use Over Past 12 Months: Yes (methamphetamine) Problems as a Result of Past Substance Use: Other Problems as a Result of Past Substance Use Comments: incarceration in the past has struggled with methamphetamine, cocaine and cannabis use. Personal History Living Arrangements: Homeless Employment Status: Unemployed Marital Status: Single Beliefs That Will Affect Care: None Current Legal Problems: No Hx Legal Problems: Yes (2/2 substance use) Patient History Medical History Encephalopathy Surgical History No pertinent past surgical history Family History Other Family history unknown Social History Smoking Status: Current some day smoker Tobacco Type: Cigarettes Second Hand Exposure: No; Do You Dip or Chew Tobacco: No; Hx Alcohol Use: Yes Hx Substance Use: Yes Non-Prescribed Medications: Crack / Cocaine and Methamphetamines Last Used Substance: Unknown Substance Use Type Other:: Pt states cocaine,marajuana, urine pos amphetamines Preferred Language: Vietnamese Communication Ability: Effective Pharmacist In Charge Owner Required: No Beliefs That Will Affect Care: None Current Living Situation: Homeless Current Living Situation Comment: homeless Feels Safe at Home: No Is there a partner from a previous relationship who is making you feel unsafe now?: No Gender Identity: Male Assistive Devices: None Review of Systems Review of Systems: All systems reviewed & are unremarkable except as noted in HPI & below (reports rash on back, visualized consistent with likely seborrhic dermatitis) Physical Exam Psychiatric: Orientation: alert and oriented x 3 Apperance: appropriately dressed and appropriately groomed Eye Contact: + fair eye contact Motor Behavior: no abnormal motor movements Speech: + abnormal rate/rhythm/volume of speech (slightly latent) Affect: + flat affect Mood: + depressed mood Thought Process: + thought blocking Thought Content: + paranoid Suicidal Thoughts: denies suicidal plan and denies suicidal intent; + reports suicidal thoughts Homicidal Thoughts: denies homicidal thoughts Hallucinations: + auditory hallucinations (he denies but previously endorsed last evening); no visual hallucinations Cognition: remote memory grossly intact and language grossly intact; + recent memory not intact and + attention not intact Estimated Intelligence: consistent with education level Insight: + limited insight Judgment: + limited judgement Vital Signs (Past 24 Hours): Last Vital Signs Temp 36.6 C 04/29/25 06:15 Pulse 83 04/29/25 06:18 Resp 18 04/29/25 06:15 BP 119/86 04/29/25 06:18 Pulse Ox 96 04/29/25 01:21 O2 Del Method Room Air 04/29/25 01:21 Exam Statement: A physical exam was performed in the ED by Dr. Joaquin for the purposes of medical clearance. I accept that physical as correct and adequate for the purposes of the inpatient physical exam. Results & Data ([facility]) Laboratory Results Laboratory Results - last 24 hr 04/28/25 04/28/25 04/28/25 15:45 16:33 Unknown WBC 11.81 H RBC 5.17 Hgb 15.3 Hct 44.2 MCV 85.5 MCH 29.6 MCHC 34.6 RDW Std Deviation 37.9 RDW Coeff of Rafal 12.2 Plt Count 363 MPV 10.3 Immature Gran % (Auto) 0.4 Neut % (Auto) 78.0 Lymph % (Auto) 16.3 [place] % (Auto) 4.0 Eos % (Auto) 1.0 Baso % (Auto) 0.3 Neut # (Auto) 9.20 H Lymph # (Auto) 1.93 [place] # (Auto) 0.47 Eos # (Auto) 0.12 Baso # (Auto) 0.04 Immature Gran # (Auto) 0.05 Sodium 136 Potassium 3.9 Chloride 100 Carbon Dioxide 27 Anion Gap 9 BUN 11 Creatinine 1.12 Est Cr Clr Drug Dosing 88.7 eGFR 82.56 BUN/Creatinine Ratio 9.8 L Glucose 91 Calcium 9.8 Total Bilirubin 1.0 AST 27 ALT 74 H Alkaline Phosphatase 81 Total Protein 7.8 Albumin 5.0 Globulin 2.8 Albumin/Globulin Ratio 1.8 TSH 2.856 Urine Color Yellow Urine Appearance Clear Urine pH 6.0 Ur Specific [place] 1.008 Urine Protein Negative Urine Glucose (UA) Negative Urine Ketones Negative Urine Blood Negative Urine Nitrite Negative Urine Bilirubin Negative Urine Urobilinogen Negative Ur Leukocyte Esterase Negative Urine Comment Salicylates < 3.0 L Urine Opiates Screen Neg Ur Methadone, Qual Neg Urine Fentanyl Screen Neg Acetaminophen < 3 L Urine Barbiturates Neg Ur Phencyclidine (PCP) Neg U Amphetamin/Meth Scrn Neg MDMA (Ecstasy) Screen Neg U Benzodiazepines Scrn Neg Ur Cocaine Metabolite Neg U Marijuana (THC) Screen Neg Ethyl Alcohol mg/dL < 10.0 SARS-CoV-2, RNA, NAAT NEGATIVE Current Inpatient Medications Current Inpatient Medications: Current Inpatient Medications Acetaminophen (Acetaminophen 325 Mg Tab) 650 mg PO Q4H PRN PRN Reason: Headache or Minor Fever Stop: 05/29/25 01:12 Al Hydrox/Mg Hydrox/Simethicone (Aluminum/Magnesium Susp 30 Ml Udc) 30 ml PO Q4H PRN PRN Reason: GI Upset Stop: 05/29/25 01:12 Hydroxyzine HCl (Hydroxyzine Hcl 25 Mg Tab) 50 mg PO HSZ PRN PRN Reason: Insomnia Stop: 05/29/25 01:12 Hydroxyzine HCl (Hydroxyzine Hcl 25 Mg Tab) 25 mg PO Q4H PRN PRN Reason: Anxiety Stop: 05/29/25 01:12 Magnesium Hydroxide (Magnesium Hydroxide Susp 30 Ml Udc) 30 ml PO DAILY PRN PRN Reason: Constipation Stop: 05/29/25 01:12 Miscellaneous (Remove Nicoderm Patch) 1 each N/A DAILY@0859 [facility] Stop: 05/29/25 08:58 Last Admin: 04/29/25 09:06 Dose: 1 each Nicotine (Nicotine 21 Mg/24 Hr Tdsy) 1 patch TD QAM [facility] Stop: 05/28/25 16:59 Last Admin: 04/29/25 09:02 Dose: 1 patch Olanzapine (Olanzapine 5 Mg Tablet) 5 mg PO BID PRN PRN Reason: agtiation Stop: 05/29/25 08:59 Sodium Chloride (Sodium Chloride 0.65% Na Soln 45 Ml ([place])) 1 - 2 sprays NA PRN PRN PRN Reason: Nasal Dryness/Congestion Stop: 05/29/25 01:12
[2025-04-29] MEDS: OLANZapine 5 MG TABLET PO SCH (21:33)
[2025-04-30 07:55] LABS: Chol HDL Ratio 3.7 (0-5)
[2025-04-30 10:11] LABS: Estimated Average Glucose 111 mg/dl; Hemoglobin A1C 5.5 % (4.5-5.6)
--- NOTE | 2025-04-30 16:03 | Psychiatric Progress Note ---
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 Diagnostically consistent with unspecified psychosis with differential including primary psychotic disorder vs depression with psychotic features vs substance- induced or withdrawal psychosis. A: Slightly more organized thought process today, he was able to speak about his auditory hallucinations, still somewhat guarded but able to trust staff a bit more. He sign a 72 hour notice but he's willing to stay for at least two more days. He likes the olanzapine and wants to continue with this, seems to be helping to lessen some of his psychosis in terms of thought process and speaking more about hallucinations. Still very isolative and spends majority of the day in his room in the dark so suspect ongoing significant internal stimulation. Fasting lipid panel and HbA1c reviewed and normal. He reported concerns to RN about genital itchiness and tenderness and asked about STD testing. Will do this and possible it's from his suspected seborrheic dermatitis so encouraged use of hydrocortisone cream. MNPR-psychosis with paranoia Overall, I spent a total of 35 minutes on this case including meeting with the patient, reviewing the chart, nursing report, multidisciplinary team meeting, orders, and documentation. (1) Psychosis: (2) Auditory hallucinations: (3) Polysubstance use disorder: Plan 04/30/2025: -Continue olanzapine -Chlamydia/Gonorrhea urine testing per his request 04/29/2025:The patient was admitted to the [facility] ([facility] mental health unit) on q15 min checks (behavioral with suicide precautions) for safety. The patient will participate in group, recreational, and milieu therapies and will b e offered additional individual and family sessions as clinically appropriate. -Start olanzapine 5mg HS -Hydrocortisone cream for rash -Fasting lipid panel and HbA1c tomorrow AM -Work to get records from recent [facility] hospitalization - to explore options for outpatient CM, therapy, psychiatry Inventory Assets Strengths: supportive relationships, willing to get treatment Needs: safety and stabilization, medication adjustment, additional coping skills, increased outpatient services Suicide Risk Level Suicide Risk Level: Moderate (q15 min suicide checks) (psychosis but now denying SI and feels safe in the hospital, denies command AH and feels able to ask staff for support if needed) Risk Factors Assessment Male: Yes : Yes Do You Have Access To A Gun?: No Health Problems: No Mental Health Diagnoses: Yes Substance Use Disorders: Yes Previous Attempt: No Previous Psychiatric Hospitalization: Yes Hopelessness: No Protective Factors Assessment Employed: No Interval History Identifying Information KATHY GTZ is a 44-year-old man who currently lives in [place] at [facility], has a 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 Chief Complaint "Doing alright". Review of Systems Sleep Information Total Hours of Sleep: 8.5 Sleep Comments: Meal Information Percent Meal Consumed - Breakfast: 100 Percent Meal Consumed - Lunch: 100 Percent Meal Consumed - Dinner: 100 Subjective Subjective Patient was seen & assessed and interval progress reviewed with treatment team. very isolative to his room all day yesterday. This morning attended group after significant encouragement. Signed a 72 hour notice, tells me this is because he doesn't like this environment but he's willing to stay a few more days.He slept well with olanzapine last night and is pleased about this noting "it's good to rest". Endorses auditory hallucinations today as mostly background noise but sometimes negative comments about him. Less intense today. Denies any command AH. Denies SI today. Physical Exam Psychiatric Orientation: alert and oriented x 3 Apperance: appropriately dressed and appropriately groomed Eye Contact: + fair eye contact Motor Behavior: no abnormal motor movements Speech: + abnormal rate/rhythm/volume of speech (slightly latent, but less today) Affect: + flat affect Mood: + depressed mood Thought Process: + thought blocking Thought Content: + paranoid Suicidal Thoughts: denies suicidal thoughts, denies suicidal plan and denies suicidal intent Homicidal Thoughts: denies homicidal thoughts Hallucinations: + auditory hallucinations; no visual hallucinations Cognition: recent memory grossly intact, remote memory grossly intact, attention grossly intact and language grossly intact Estimated Intelligence: consistent with education level Insight: + limited insight Judgment: + limited judgement Vital Signs (Past 24 Hours) Last Vital Signs Temp 36.9 C 04/30/25 06:00 Pulse 87 06/25/25 06:30 Resp 16 04/30/25 06:00 BP 113/83 04/30/25 06:30 Pulse Ox 96 04/30/25 06:00 O2 Del Method Room Air 04/30/25 06:00 Results & Data ([facility]) Laboratory Results Laboratory Results - last 24 hr 04/30/25 07:16 Estimat Average Glucose 111 Hemoglobin A1c 5.5 Triglycerides 120 Cholesterol 150 LDL Cholesterol, Calc 85 VLDL Cholesterol, Calc 24 HDL Cholesterol 41 Cholesterol/HDL Ratio 3.7 Current Inpatient Medications Current Inpatient Medications: Current Inpatient Medications Acetaminophen (Acetaminophen 325 Mg Tab) 650 mg PO Q4H PRN PRN Reason: Headache or Minor Fever Stop: 05/29/25 01:12 Al Hydrox/Mg Hydrox/Simethicone (Aluminum/Magnesium Susp 30 Ml Udc) 30 ml PO Q4H PRN PRN Reason: GI Upset Stop: 05/29/25 01:12 Hydrocortisone (Hydrocortisone 1% Oint 30 Gm Tube) 1 appln EXT BID PRN PRN Reason: itchiness Stop: 05/29/25 15:48 Hydroxyzine HCl (Hydroxyzine Hcl 25 Mg Tab) 50 mg PO HSZ PRN PRN Reason: Insomnia Stop: 05/29/25 01:12 Hydroxyzine HCl (Hydroxyzine Hcl 25 Mg Tab) 25 mg PO Q4H PRN PRN Reason: Anxiety Stop: 05/29/25 01:12 Magnesium Hydroxide (Magnesium Hydroxide Susp 30 Ml Udc) 30 ml PO DAILY PRN PRN Reason: Constipation Stop: 05/29/25 01:12 Miscellaneous (Remove Nicoderm Patch) 1 each N/A DAILY@0859 KAITLYNN Stop: 05/29/25 08:58 Last Admin: 04/30/25 09:03 Dose: 1 each Nicotine (Nicotine 21 Mg/24 Hr Tdsy) 1 patch TD QAM KAITLYNN Stop: 05/28/25 16:59 Last Admin: 04/30/25 09:03 Dose: Not Given Olanzapine (Olanzapine 5 Mg Tablet) 5 mg PO BID PRN PRN Reason: agtiation Stop: 05/29/25 08:59 Olanzapine (Olanzapine 5 Mg Tablet) 5 mg PO HS KAITLYNN Stop: 05/29/25 21:59 Last Admin: 04/29/25 21:33 Dose: 5 mg Sodium Chloride (Sodium Chloride 0.65% Na Soln 45 Ml ([place])) 1 - 2 sprays NA PRN PRN PRN Reason: Nasal Dryness/Congestion Stop: 05/29/25 01:12 Mental Health & Subst Abuse Tx Therapist Name of Therapist: N/A [employer]icians Name of Marine Engineering Technicians: N/A (1) Psychosis Psychosis type: unspecified psychosis type Qualified Code(s): F29 - Unspecified psychosis not due to a substance or known physiological condition
[2025-04-30] MEDS: HYDROCORTISONE 1% OINT 30 GM TUBE EXT PRN (16:50)
[2025-05-01 06:13] VITALS: O2SAT 98
--- NOTE | 2025-05-01 09:16 | Psychiatric Progress Note ---
Date of Service May 01, 2025 Impression / Recommendations Impression KATHY GTZ is a 44-year-old man who currently lives in [place] at [facility], has a 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 Diagnostically consistent with unspecified psychosis with differential including primary psychotic disorder vs depression with psychotic features vs substance- induced or withdrawal psychosis. A: Psychosis lessening today, responding well to olanzapine. Engaging more easily today and reports lessening of paranoia and hallucinations. Tolerated support meeting. Monitor for ongoing improvement in sleep as only 5.5 hours last night. STD testing was negative. MNPR-paranoia set off by noises so not yet able to tolerate a roommate Overall, I spent a total of 35 minutes on this case including meeting with the patient, reviewing the chart, nursing report, multidisciplinary team meeting, orders, and documentation. (1) Schizophrenia: (2) Unspecified psychosis not due to a substance or known physiological condition: (3) Polysubstance use disorder: (4) Hallucinations: Plan 05/01/2025: -Continue current medications and treatment plan 04/30/2025: -Continue olanzapine -Chlamydia/Gonorrhea urine testing per his request 04/29/2025:The patient was admitted to the [facility] ([facility] mental health unit) on q15 min checks (behavioral with suicide precautions) for safety. The patient will participate in group, recreational, and milieu therapies and will be offered additional individual and family sessions as clinically appropriate. -Start olanzapine 5mg HS -Hydrocortisone cream for rash -Fasting lipid panel and HbA1c tomorrow AM -Work to get records from recent [facility] hospitalization - to explore options for outpatient CM, therapy, psychiatry Inventory Assets Strengths: supportive relationships, willing to get treatment Needs: safety and stabilization, medication adjustment, additional coping skills, increased outpatient services Suicide Risk Level Suicide Risk Level: Moderate (q15 min suicide checks) (psychosis but now denying SI and feels safe in the hospital, denies command AH and feels able to ask staff for support if needed) Risk Factors Assessment Male: Yes : Yes Do You Have Access To A Gun?: No Health Problems: No Mental Health Diagnoses: Yes Substance Use Disorders: Yes Previous Attempt: No Previous Psychiatric Hospitalization: Yes Hopelessness: No Protective Factors Assessment Employed: No Interval History Identifying Information KATHY GTZ is a 44-year-old man who currently lives in [place] at [facility], has a 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 Chief Complaint "I'm feeling more comfortable now". Review of Systems Sleep Information Total Hours of Sleep: 5.5 Meal Information Percent Meal Consumed - Breakfast: 100 Percent Meal Consumed - Lunch: 100 Percent Meal Consumed - Dinner: 100 Subjective Subjective Patient was seen & assessed and interval progress reviewed with nursing and social work. Attended a few groups yesterday. Rated his mood as "frustrated". Watched TV with a peer last night. Slept 8 hours. Today attending all groups and participating. Reports lessening of voices and paranoia today. Feeling more like himself. Slept well with olanzapine and denies any side effects from this. Smiling more. Physical Exam Psychiatric Orientation: alert and oriented x 3 Apperance: appropriately dressed and appropriately groomed Eye Contact: good eye contact Motor Behavior: no abnormal motor movements Speech: normal rate/rhythm/volume of speech Affect: + constricted affect Mood: no depressed mood and no anxious mood Thought Process: linear/logical thought process Thought Content: + paranoid (lessening) and reality based without delusions Suicidal Thoughts: denies suicidal thoughts, denies suicidal plan and denies suicidal intent Homicidal Thoughts: denies homicidal thoughts Hallucinations: + auditory hallucinations (lessening); no visual hallucinations Cognition: recent memory grossly intact, remote memory grossly intact, attention grossly intact and language grossly intact Estimated Intelligence: consistent with education level Insight: + limited insight Judgment: + limited judgement Vital Signs (Past 24 Hours) Last Vital Signs Temp 36.9 C 05/01/25 06:00 Pulse 91 H 05/01/25 06:13 Resp 12 05/01/25 06:00 BP 122/83 05/01/25 06:13 Pulse Ox 98 05/01/25 06:00 O2 Del Method Room Air 05/01/25 06:00 Results & Data ([facility]) Laboratory Results Laboratory Results - last 24 hr 04/30/25 04/30/25 07:16 16:45 Estimat Average Glucose 111 Hemoglobin A1c 5.5 C.trachomatis RNA Pending N.gonorrhoeae RNA Pending Current Inpatient Medications Current Inpatient Medications: Current Inpatient Medications Acetaminophen (Acetaminophen 325 Mg Tab) 650 mg PO Q4H PRN PRN Reason: Headache or Minor Fever Stop: 05/29/25 01:12 Al Hydrox/Mg Hydrox/Simethicone (Aluminum/Magnesium Susp 30 Ml Udc) 30 ml PO Q4H PRN PRN Reason: GI Upset Stop: 05/29/25 01:12 Hydrocortisone (Hydrocortisone 1% Oint 30 Gm Tube) 1 appln EXT BID PRN PRN Reason: itchiness Stop: 05/29/25 15:48 Last Admin: 04/30/25 16:50 Dose: 1 appln Hydroxyzine HCl (Hydroxyzine Hcl 25 Mg Tab) 50 mg PO HSZ PRN PRN Reason: Insomnia Stop: 05/29/25 01:12 Hydroxyzine HCl (Hydroxyzine Hcl 25 Mg Tab) 25 mg PO Q4H PRN PRN Reason: Anxiety Stop: 05/29/25 01:12 Magnesium Hydroxide (Magnesium Hydroxide Susp 30 Ml Udc) 30 ml PO DAILY PRN PRN Reason: Constipation Stop: 05/29/25 01:12 Miscellaneous (Remove Nicoderm Patch) 1 each N/A DAILY@0859 KAITLYNN Stop: 05/29/25 08:58 Last Admin: 05/01/25 08:45 Dose: Not Given Nicotine (Nicotine 21 Mg/24 Hr Tdsy) 1 patch TD QAM KAITLYNN Stop: 05/28/25 16:59 Last Admin: 05/01/25 08:44 Dose: 1 patch Olanzapine (Olanzapine 5 Mg Tablet) 5 mg PO BID PRN PRN Reason: agtiation Stop: 05/29/25 08:59 Olanzapine (Olanzapine 5 Mg Tablet) 5 mg PO HS KAITLYNN Stop: 05/29/25 21:59 Last Admin: 04/30/25 21:30 Dose: 5 mg Sodium Chloride (Sodium Chloride 0.65% Na Soln 45 Ml ([employer])) 1 - 2 sprays NA PRN PRN PRN Reason: Nasal Dryness/Congestion Stop: 05/29/25 01:12 Mental Health & Subst Abuse Tx Psychiatrist Name of Psychiatrist: Karl Clear Therapist Name of Therapist: N/A Rn Military Name of Rn Military: N/A (1) Schizophrenia 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
[2025-05-01 11:28] LABS: Chlam trach RNA(Genit,Ureth,Ur Not Detected (NotDetected); GC(Neis gon)RNA(Genit,Ureth,Ur Not Detected (NotDetected)
[2025-05-02 06:23] VITALS: RESP 16; TEMP 97.7
--- NOTE | 2025-05-02 09:02 | Psychiatric Progress Note ---
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 Diagnostically consistent with unspecified psychosis with differential including primary psychotic disorder vs depression with psychotic features vs substance- induced or withdrawal psychosis. A: Thoughts becoming clearer and more organized. Slept well overnight. Tolerating olanzapine. No transportation available today and he wants to return to his sober living supportive residential program to reduce risk for future relapse. They can pick him up tomorrow. MNPR-recent paranoia set off by noises so will continue to avoid roommate given concerns this could lead to re-emergence of psychosis Overall, I spent a total of 25 minutes on this case including meeting with the patient, reviewing the chart, nursing report, multidisciplinary team meeting, orders, and documentation. (1) Schizophrenia: (2) Unspecified psychosis not due to a substance or known physiological condition: (3) Polysubstance use disorder: Plan 05/02/2025: -Continue current medications and tx plan. 05/01/2025: -Continue current medications and treatment plan 04/30/2025: -Continue olanzapine -Chlamydia/Gonorrhea urine testing per his request 04/29/2025:The patient was admitted to the [facility] ([facility] mental health [facility]) on q15 min checks (behavioral with suicide precautions) for safety. The patient will participate in group, recreational, and milieu therapies and will be offered additional individual and family sessions as clinically appropriate. -Start olanzapine 5mg HS -Hydrocortisone cream for rash -Fasting lipid panel and HbA1c tomorrow AM -Work to get records from recent [facility] hospitalization - to explore options for outpatient CM, therapy, psychiatry Inventory Assets Strengths: supportive relationships, willing to get treatment Needs: safety and stabilization, medication adjustment, additional coping skills, increased outpatient services Suicide Risk Level Suicide Risk Level: Moderate (q15 min suicide checks) (psychosis but now denying SI and feels safe in the hospital, denies command AH and feels able to ask staff for support if needed) Risk Factors Assessment Male: Yes : Yes Do You Have Access To A Gun?: No Health Problems: No Mental Health Diagnoses: Yes Substance Use Disorders: Yes Previous Attempt: No Previous Psychiatric Hospitalization: Yes Hopelessness: No Protective Factors Assessment Employed: No Interval History Identifying Information KATHY GTZ is a 44-year-old man who currently lives in [place] at [facility], has a 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 Chief Complaint "Some things are coming back in my mind". Review of Systems Sleep Information Total Hours of Sleep: 6.5 Meal Information Percent Meal Consumed - Breakfast: 100 Percent Meal Consumed - Lunch: 100 Percent Meal Consumed - Dinner: 100 Subjective Subjective Patient was seen & assessed and interval progress reviewed with treatment team. Attending groups. Revoked his 72 hour notice. Slept more last night. Today reports his mood is improving and that his memory and thoughts are coming back and becoming more clear. Now he can recall his social media passwords and information about his daughter that is bringing him reassurance. No new medication side effects, again reviewed longer-term side effects including metabolic, movement and weight gain risks. Denies SI. Has no ride today but [facility] can provide transport tomorrow. Physical Exam Psychiatric Orientation: alert and oriented x 3 Apperance: appropriately dressed and appropriately groomed Eye Contact: good eye contact Motor Behavior: no abnormal motor movements Speech: normal rate/rhythm/volume of speech Affect: + constricted affect Mood: no depressed mood and no anxious mood Thought Process: linear/logical thought process Thought Content: reality based without delusions Suicidal Thoughts: denies suicidal thoughts, denies suicidal plan and denies suicidal intent Homicidal Thoughts: denies homicidal thoughts Hallucinations: no auditory hallucinations and no visual hallucinations Cognition: recent memory grossly intact, remote memory grossly intact, attention grossly intact and language grossly intact Estimated Intelligence: consistent with education level Insight: + fair insight Judgment: + fair judgement Vital Signs (Past 24 Hours) Last Vital Signs Temp 36.5 C 05/02/25 06:22 Pulse 70 05/02/25 06:22 Resp 16 05/02/25 06:22 BP 114/81 05/02/25 06:22 Pulse Ox 98 05/01/25 06:00 O2 Del Method Room Air 05/01/25 06:00 Results & Data ([facility]) Laboratory Results Laboratory Results - last 24 hr 04/30/25 16:45 C.trachomatis RNA Not Detected N.gonorrhoeae RNA Not Detected Current Inpatient Medications Current Inpatient Medications: Current Inpatient Medications Acetaminophen (Acetaminophen 325 Mg Tab) 650 mg PO Q4H PRN PRN Reason: Headache or Minor Fever Stop: 05/29/25 01:12 Al Hydrox/Mg Hydrox/Simethicone (Aluminum/Magnesium Susp 30 Ml Udc) 30 ml PO Q4H PRN PRN Reason: GI Upset Stop: 05/29/25 01:12 Hydrocortisone (Hydrocortisone 1% Oint 30 Gm Tube) 1 appln EXT BID PRN PRN Reason: itchiness Stop: 05/29/25 15:48 Last Admin: 04/30/25 16:50 Dose: 1 appln Hydroxyzine HCl (Hydroxyzine Hcl 25 Mg Tab) 50 mg PO HSZ PRN PRN Reason: Insomnia Stop: 05/29/25 01:12 Hydroxyzine HCl (Hydroxyzine Hcl 25 Mg Tab) 25 mg PO Q4H PRN PRN Reason: Anxiety Stop: 05/29/25 01:12 Magnesium Hydroxide (Magnesium Hydroxide Susp 30 Ml Udc) 30 ml PO DAILY PRN PRN Reason: Constipation Stop: 05/29/25 01:12 Miscellaneous (Remove Nicoderm Patch) 1 each N/A DAILY@0859 KAITLYNN Stop: 05/29/25 08:58 Last Admin: 05/01/25 08:45 Dose: Not Given Nicotine (Nicotine 21 Mg/24 Hr Tdsy) 1 patch TD QAM KAITLYNN Stop: 05/28/25 16:59 Last Admin: 05/01/25 08:44 Dose: 1 patch Olanzapine (Olanzapine 5 Mg Tablet) 5 mg PO BID PRN PRN Reason: agtiation Stop: 05/29/25 08:59 Olanzapine (Olanzapine 5 Mg Tablet) 5 mg PO HS KAITLYNN Stop: 05/29/25 21:59 Last Admin: 05/01/25 20:32 Dose: 5 mg Sodium Chloride (Sodium Chloride 0.65% Na Soln 45 Ml ([place])) 1 - 2 sprays NA PRN PRN PRN Reason: Nasal Dryness/Congestion Stop: 05/29/25 01:12 Mental Health & Subst Abuse Tx Psychiatrist Name of Psychiatrist: Karl Gardner Therapist Name of Therapist: Karl Lopez Date of Therapist Appointment: 05/08/25 Time of Therapist Appointment: 12:30 PM Therapy Appointment Comment: Intake and therapist will refer for psychiatrist. Entertainment Dancer Name of Entertainment Dancer: N/A Post Discharge Appointments Primary Care Physician Name Of Family Doctor/PCP: [facility] [place] - Dr. Andrei Mendoza [facility] Phone Number: [phone] Date of Future Appointment with PCP: Monday05/07/2025 Time of Appointment with PCP: Arrival time: 1:05 PM Provider Appointment Comment: Must bring form of ID, Insurance Card, medication list, and medical record. Contact Information Discharge Address: [address] [facility] [address] (1) Schizophrenia 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
[2025-05-02] MEDS: COUGH DROP (SUGAR FREE) LOZ 24 LOZ/1 BOX BUCCAL PRN (19:45)
[2025-05-03 06:35] VITALS: BP 119/82
[2025-05-03 09:44] VITALS: PULSE 87
--- NOTE | 2025-05-03 10:46 | Discharge Summary ---
Date of Service May 03, 2025 History of Present Illness He presents for psychiatric admission for thought blocking, concern for psychosis, SI and some bizarre behaviors prior to admission. He has been isolative to his room since arriving to the unit and seems to have periods of confusion or conflicting information. It's difficult to understand fully why he came to the hospital or what he is hoping to get help with. However, he is able to discuss difficulty with sleep and that "I was on several medications that messed me up, the medications were messing with my body, mind, throat". Describes recent hospitalization at [facility] but reports he then asked to leave after a week and apparently never picked up any medications or attended any follow-up appointments. Describes that recently he's had "a lot of confusion, and my nerves were bad". Hard to get a clear timeline on when his suicidal ideation started. Currently he endorses SI but feels safe in the hospital. Describes recent stressor of using substances at a green party about 3-4 weeks ago. He drank alcohol and he's unsure what else he used at the green party but thinks methamphetamine "it's possible". He is not currently prescribed any psychiatric medications. He cannot what he took recently or what he took during recent inpatient psychiatric hospitalzation. Psychiatric ROS notable for history of symptoms of psychosis. Additional history per ED CM notes on 04/28/2025: "Met with Humphrey at bedside to complete psychiatric assessment. He is observed to be laying in the bed staring at the ceiling. When asked what is bringing him to the Emergency Department today, he stares before stating, "I don't know." He is significantly slow to respond and appears to be thought-blocked. When asked what we can help him with today, he stared for some time before saying, "I think I have insomnia or something." He relays that he hasn't slept in several days. I asked him where he was living these days and after several moments he responded, "Nowhere" and stated that he has been sleeping outside. He does have a tanned appearance from being in the elements. When asked, he admits to forgetting to take his psychiatric medications but cannot remember the names of those medications other than "trazodone". He often responds in the affirmative when asked questions like "Are you not taking your medication because you forgot?" but then states that he does not currently have outpatient providers. He also states he cannot remember what, if anything, he is diagnosed with. Chart review reveals extensive history of schizophrenia. Humphrey notes that he has been feeling suicidal for a couple days. He denies a specific trigger but does note that he feels as if he is being harassed. He answers yes when asked if he is feeling paranoid. When asked if his thoughts have progressed to a plan, he states, "I'm not a city planner. 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 He does state he has been eating/drinking fine, questionable if this information is reliable. He admits to history of inpatient hospitalization but cannot remember the last time or where he was last inpatient. He notes that he is willing to sign himself in for inpatient treatment stating, "I need to get my meds right." When asked about homicidal ideation or thoughts of wanting to kill anyone else, he replied, "Fuck yeah." When asked who, he thought for some time before saying, "I'd rather bring people together than hurt them". He then denies homicidal ideation. Medical clearance process explained." and "Met with patient at bedside to discuss inpatient treatment as he did not speak to the [facility] Liaison RN. He continues to appear to be thought-blocked and stares past this ad copy writer. I asked Humphrey if he was having difficulty concentrating and if that had something to do with what was taking him so long to answer questions. He states that it is hard to concentrate with the "noise". He admits at this time to hearing constant voices. He does not elaborate on the content of the voices, but does state they stress him out. Additionally, received a call from Yoly at [facility] in [place]. She states that Humphrey has been there for inpatient rehab several times over the last 3-4 years. She feels they know him well. He was with them and left on March 24. He asked them to pick him up from a friend's house and he returned to [facility] on April 22. He has been there since. Yesterday, he told staff that he needed to go to the hospital and see a doctor. He went to [facility] and was discharged. Yoly is uncertain what kind of work-up he requested at that time as he did not bring paperwork back with him. Today, he woke up and wanted to go to the [facility]. Yoly inquired to him if he thought that was the best place for him. He said no, and said he needed to go to the hospital again. Yoly further shares that typically, Humphrey is a very hard worker and talkative to his friends and staff there. 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 His friend went to look for him and found Humphrey sitting in the back seat with the windows up, sweating profusely. Yoly shares concern that Humphrey needs psychiatric intervention. " Physical Exam Vital Signs (Past 24 Hours) Last Vital Signs Temp 36.5 C 05/03/25 09:41 Pulse 87 05/03/25 09:41 Resp 16 05/03/25 09:41 BP 119/82 05/03/25 09:41 Pulse Ox 98 05/03/25 09:41 O2 Del Method Room Air 05/01/25 06:00 Principal Diagnosis Unspecified Psychosis Psychiatric Data See daily stay summary. In short, patient was engaged with the social/therapeutic milieu of the unit, safety was maintained and the patient was cooperative with care. Medication changes included initiation of olanzapine 5mg HS for psychosis and they tolerated this well. Baseline labs of fasting glucose, fasting lipid profile, and weight were preformed (see labwork results below). Recommend repeat weight in one month. Recommend repeat fasting glucose, HbA1c and fasting lipid profile every 12 weeks and then annually. If symptoms arise recommend checking BP, EKG, prolactin level as clinically indicated or relevant. . A support session was held and safety plan was completed prior to discharge. They participated in safety planning and in discussions about ways to seek support and recognizing warning signs and utilizing coping skills. Reviewed ways to have their safety plan and contacts easily available should thoughts of SI re-emerge in the future. Reviewed importance of seeking emergency care should SI intensify, worsen or should they feel unsafe in the future which they agree to do. On the day of discharge they stated their mood was "good" and remained future-oriented including relaxing, returning to [facility] to work on recovery and engaging in aftercare appointments for primary care, psychiatry, therapy. Day of Discharge Assessment Today the patient voices readiness for discharge. They note improvement in mood and anxiety. They deny thoughts of harm to self or others. Thoughts are organized and they are clinically improved from admission. There is no evidence of psychosis. They improved in the hospital with support and medication adjustments. They agree to take medications as prescribed and keep follow-up appointments. At the time of the discharge they are deemed to be stable and appropriate for outpatient level of care. They are not deemed to be at imminent risk of harm to self or others. They are aware of emergency and crisis services. Knows to call 911 or go to nearest emergency care center if in a crisis which cannot be handled as an outpatient. Suicide risk assessment: Acute risk is low given improvement in mood and denial of SI, lack of access to lethal means, plan to avoid substance use, improvement in sleep, hopefulness and improvement in psychosis. Chronic risk is moderate given some non-modifiable risk factors: psychiatric co-morbid diagnoses, periods of impulsivity, prior psychiatric hospitalizations, psychosis, but also with protective factors including good social support, sense of responsibility to family and social supports, outpatient care in place, positive coping skills, positive problem solving, willingness to engage with treatment and self-observation. Counseled on ways to reduce acute and chronic risk including engaging with outpatient providers, using safety plan if needed, utilizing supports, taking medication, and using coping skills. Modifiable risk factors of psychosis and SI were addressed during hospitalization through development of new coping skills, support meeting, safety planning, and medication adjustments. Discharge physical exam: See admission H&P, MSE per above and day of discharge summary. Overall, I spent a total of 35 minutes on this case including meeting with the patient, reviewing the chart, nursing report, multidisciplinary team meeting, discharge orders, anticipatory planning, safety planning, risk assessment and documentation. Transition of Care Transition Of Care Record: was reviewed with the patient Advance Directives Advance Directives Information Provided: No Advance Directives: No Mental Health Advance Directive: No (unable to determine, patient intermittently mute) Living Will: No (unable to determine, patient intermittently mute) Power of Cloth Trimmer Hand: No Advance Directives Reason:: Declines as Mental Health Visit. Suicide Risk Level Suicide Risk Level Comments: Acute risk is low given denial of SI and future-oriented. Risk Factors Assessment Male: Yes : Yes Do You Have Access To A Gun?: No Health Problems: No Mental Health Diagnoses: Yes Substance Use Disorders: Yes Previous Attempt: No Previous Psychiatric Hospitalization: Yes Hopelessness: No Protective Factors Assessment Employed: No Stable Relationships: Yes Opioid Risk Protocol Educated on use ofnaloxone nasal spray. Kit offered to patient. Patient declines. Discharge Data Lab Results 04/28/25 04/28/25 04/28/25 15:45 16:33 Unknown WBC 11.81 H RBC 5.17 Hgb 15.3 Hct 44.2 MCV 85.5 MCH 29.6 MCHC 34.6 RDW Std Deviation 37.9 RDW Coeff of Rafal 12.2 Plt Count 363 MPV 10.3 Immature Gran % (Auto) 0.4 Neut % (Auto) 78.0 Lymph % (Auto) 16.3 Kings % (Auto) 4.0 Eos % (Auto) 1.0 Baso % (Auto) 0.3 Neut # (Auto) 9.20 H Lymph # (Auto) 1.93 Kings # (Auto) 0.47 Eos # (Auto) 0.12 Baso # (Auto) 0.04 Immature Gran # (Auto) 0.05 Sodium 136 Potassium 3.9 Chloride 100 Carbon Dioxide 27 Anion Gap 9 BUN 11 Creatinine 1.12 Est Cr Clr Drug Dosing 88.7 eGFR 82.56 BUN/Creatinine Ratio 9.8 L Glucose 91 Estimat Average Glucose Hemoglobin A1c Calcium 9.8 Total Bilirubin 1.0 AST 27 ALT 74 H Alkaline Phosphatase 81 Total Protein 7.8 Albumin 5.0 Globulin 2.8 Albumin/Globulin Ratio 1.8 Triglycerides Cholesterol LDL Cholesterol, Calc VLDL Cholesterol, Calc HDL Cholesterol Cholesterol/HDL Ratio TSH 2.856 Urine Color Yellow Urine Appearance Clear Urine pH 6.0 Ur Specific Geneva 1.008 Urine Protein Negative Urine Glucose (UA) Negative Urine Ketones Negative Urine Blood Negative Urine Nitrite Negative Urine Bilirubin Negative Urine Urobilinogen Negative Ur Leukocyte Esterase Negative Urine Comment Salicylates < 3.0 L Urine Opiates Screen Neg Ur Methadone, Qual Neg Urine Fentanyl Screen Neg Acetaminophen < 3 L Urine Barbiturates Neg Ur Phencyclidine (PCP) Neg U Amphetamin/Meth Scrn Neg MDMA (Ecstasy) Screen Neg U Benzodiazepines Scrn Neg Ur Cocaine Metabolite Neg U Marijuana (THC) Screen Neg Ethyl Alcohol mg/dL < 10.0 C.trachomatis RNA N.gonorrhoeae RNA SARS-CoV-2, RNA, NAAT NEGATIVE 04/30/25 04/30/25 07:16 16:45 WBC RBC Hgb Hct MCV MCH MCHC RDW Std Deviation RDW Coeff of Rafal Plt Count MPV Immature Gran % (Auto) Neut % (Auto) Lymph % (Auto) Kings % (Auto) Eos % (Auto) Baso % (Auto) Neut # (Auto) Lymph # (Auto) Kings # (Auto) Eos # (Auto) Baso # (Auto) Immature Gran # (Auto) Sodium Potassium Chloride Carbon Dioxide Anion Gap BUN Creatinine Est Cr Clr Drug Dosing eGFR BUN/Creatinine Ratio Glucose Estimat Average Glucose 111 Hemoglobin A1c 5.5 Calcium Total Bilirubin AST ALT Alkaline Phosphatase Total Protein Albumin Globulin Albumin/Globulin Ratio Triglycerides 120 Cholesterol 150 LDL Cholesterol, Calc 85 VLDL Cholesterol, Calc 24 HDL Cholesterol 41 Cholesterol/HDL Ratio 3.7 TSH Urine Color Urine Appearance Urine pH Ur Specific Geneva Urine Protein Urine Glucose (UA) Urine Ketones Urine Blood Urine Nitrite Urine Bilirubin Urine Urobilinogen Ur Leukocyte Esterase Urine Comment Salicylates Urine Opiates Screen Ur Methadone, Qual Urine Fentanyl Screen Acetaminophen Urine Barbiturates Ur Phencyclidine (PCP) U Amphetamin/Meth Scrn MDMA (Ecstasy) Screen U Benzodiazepines Scrn Ur Cocaine Metabolite U Marijuana (THC) Screen Ethyl Alcohol mg/dL C.trachomatis RNA Not Detected N.gonorrhoeae RNA Not Detected SARS-CoV-2, RNA, NAAT Hospital Course (1) Schizophrenia: (2) Unspecified psychosis not due to a substance or known physiological condition: (3) Polysubstance use disorder: Plan 05/03/2025: -Feels safe and ready for discharge 05/02/2025: -Continue current medications and tx plan. 05/01/2025: -Continue current medications and treatment plan 04/30/2025: -Continue olanzapine -Chlamydia/Gonorrhea urine testing per his request 04/29/2025:The patient was admitted [facility] the [facility] on q15 min checks (behavioral with suicide precautions) for safety. The patient will participate in group, recreational, and milieu therapies and will be offered additional individual and family sessions as clinically appropriate. -Start olanzapine 5mg HS -Hydrocortisone cream for rash -Fasting lipid panel and HbA1c tomorrow AM -Work to get records from recent [facility] hospitalization -SW to explore options for outpatient CM, therapy, psychiatry Mental Health & Subst Abuse Tx Psychiatrist Name of Psychiatrist: Jennifer Kwan [address] [place] [address] Psychiatrist's Psychiatric Appointment Comment: Patient will be assigned a psychiatrist after the intake Psychiatrist Release of Information: Obtained, Reviewed and Signed Therapist Name of Therapist: Jennifer Frederick (Intake appointment) [address] [facility] Therapist's Date of Therapist Appointment: 05/08/25 Time of Therapist Appointment: 12:30 PM Therapy Appointment Comment: Therapist will refer patient to be seen by psychiatrist after intake Therapist Release of Information: Obtained, Reviewed and Signed Academic Affairs Dean Name of Academic Affairs Dean: N/A Post Discharge Appointments Primary Care Physician Name Of Family Doctor/PCP: [facility] [place] - Dr. Andrei Mendoza Primary Care Date of Future Appointment with PCP: Monday05/07/2025 Time of Appointment with PCP: Arrival time: 1:05 PM Provider Appointment Comment: Must bring form of ID, Insurance Card, med list, and DC instructions Primary Care Release of Information: Obtained, Reviewed and Signed Contact Information Discharge Discharge Address: [address] [place] [id number] Discharge Plan Discharge Items Patient Disposition: Home - Self-Care Reason For Visit: MHE, UNSPECIFIEC MOOD DISORDER Discharge Diagnosis: Unspecified Psychosis Condition on Discharge: Fair Activity: Resume your previous activity Non-emergency contact: Primary Care Provider, Psychiatrist and Therapist Call non-emergency contact if: you have any medication questions and your symptoms worsen Follow-up/Referrals: PCP,NO [Primary Care Provider] - Diet: Regular Addtl Attending Provider Instructions: SPECIAL CARE INSTRUCTIONS: 1. Follow through with your scheduled aftercare appointments. If unable to keep an appointment, please call to reschedule. 2. Take your medication only as prescribed. Medication should not be changed or stopped without the approval of your doctor. In the event of worsening symptoms or concerns about side effects, contact your doctor immediately. 3. Utilize new healthy coping skills, anger management skills, and stress management skills learned during your hospitalization. Journal feelings and process them with a support person. Identify stressors or situations that may result in relapse, deterioration or inappropriate behaviors and develop a plan to deal with those issues. 4. If your coping skills are ineffective and you are in crisis, contact your outpatient providers for direction. If unable to reach your providers, please call the [facility] CRISIS LINE AT , go to the [facility] walk-in center at [address], [address], [place], or go to the closest Emergency Room. 5. Avoid alcohol and un-prescribed drugs. 6. You have been provided with the Mental Health Advance Directives Pamphlet for your review. 7. Your condition is stable for discharge to outpatient level of care, but recovery is an ongoing process. Ifthoughts to harm yourself or others return, follow the safety plan developed during your stay. Planning for a safe return home includes securing weapons. Our treatment team recommends weaponsbe removed from the home until your outpatient provider reassesses your progress. In rare cases where the items themselvescannot be removed, guns and ammunitionshould be secured separatelyand keys stored by a reliable personoutside of the home. If you were admitted on an involuntary commitment, the police or other legal authorities may be involved in this process. AFTERCARE APPOINTMENTS: * Please call your insurance company prior to your scheduled appointment to confirm your aftercare providers are covered. Take your insurance information to your appointments. WHO TO CALL AND WHEN: Medical Emergencies: For questions or emergencies related to your hospital stay, please contact the Inpatient Behavioral Health Unit at [phone]. A duralumin mechanic is on-call 29/05 for the Behavioral Health Unit for emergencies At any time you feel your situation is an emergency, you may also call 911 immediately. National Crisis Hotline: 988 Pending Studies at Discharge: No Stand-Alone Forms: My [facility] [employer], Smoking Cessation Medications and DC Order Prescriptions: New hydrocortisone 1 % Ointment 1 applic EXT BID PRN (Reason: itching/skin irritation) 30 Days Qty: 28.35 0RF olanzapine 5 mg Tablet 5 mg PO HS 30 Days Qty: 30 0RF Discontinued trazodone 50 mg tablet 50 mg PO DAILY sertraline 50 mg tablet 50 mg PO DAILY cholecalciferol (vitamin D3) 125 mcg (5,000 unit) capsule 5,000 unit PO DAILY Discharge Orders: Discharge Order (Routine); Ordered 05/03/25 Ordered By: Juli Franco Admission Data Admit Date/Time: 04/29/25 00:38 Attending Provider: Juli Franco Admit Provider: Juli Franco Primary Care Provider: PCP,NO Other Interventions: Discharge Summary Assessment (RN) Last Done: 05/03/25 12:13 PSY Interdisciplinary Discharge Planning Last Done: 05/03/25 12:13 Coding Level of Care Code 14330 D/C day mgmt > 30 min Diagnoses 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
== END 2025-05-03 13:20 | disposition home or self-care (01) | DRG 885 ==
LOC: ED 15:31 → 3S 04-29 00:38 → ED 04-29 00:58